=== PATIENT | female | born 1950 | race Caucasian/White ===

== ENCOUNTER 2020-05-21 15:36 | Outpatient (CLI) | payer MEDICARE, OTHER, SELFPAY ==
--- NOTE | ~2020-05-21 | XR_ITS ---
EXAMINATION: XR foot LT 2V DATE: 05/21/2020 16:34 INDICATION: Left foot pain. TECHNIQUE: 2 views of left foot were obtained. COMPARISON: None. FINDINGS: Bone alignment is normal. No fracture. There is mild to moderate osteoarthritis of most of the interphalangeal joints. There is mild osteoarthritis of many of the midfoot joints. There are ent hesophytes at the posterior and plantar aspects of calcaneal tuberosity. IMPRESSION: 1. Polyarticular osteoarthritis. Reviewed, dictated and finalized at location A.
--- NOTE | ~2020-05-21 | XR_ITS ---
EXAMINATION: XR foot RT 2V DATE: 05/21/2020 16:34 INDICATION: Right foot pain. TECHNIQUE: 2 views of right foot were obtained. COMPARISON: None. FINDINGS: Bone alignment is normal. No fracture. There is mild osteoarthritis of first metatarsophala ngeal joint and many of the interphalangeal joints and midfoot joints. There are enthesophytes at the posterior and plantar aspects of calcaneal tuberosity. IMPRESSION: 1. Mild polyarticular osteoarthritis. Reviewed, dictated and finalized at location A.
--- NOTE | ~2020-05-21 | XR_ITS ---
XR clavicle LT DATE: 05/21/2020 16:34 INDICATION: Shoulder lump medially TECHNIQUE: AP and angled upright AP views COMPARISON: None FINDINGS: No fracture or dislocation of the left clavicle. Normal alignment at the sternoclavicular, acromioclavicular and glenohumeral joints Moderate osteopenia. IMPRESSION: No significant abnormality of the left clavicle Reviewed, dictated and finalized at location A.
[2020-05-21 16:07] LABS: Hematocrit 42.3 % (37.0-47.0); Hemoglobin 14.4 g/dL (12.0-15.0); Mean Corpuscular Hemoglobin 30.6 pg (26-34); Mean Corpuscular Volume 89.8 fl (80-100); Mean Platelet Volume 9.4 fl (7.4-10.4); Platelet Count Result 228 k/mm3 (150-375); Red Blood Count 4.71 M/mm3 (4.2-5.4); Red Cell Distribution Width 12.6 % (11.5-14.5)
[2020-05-21 16:11] LABS: Add Urine Microscopic? YES; Appearance Urine Clear (Clear); Bilirubin Urine Negative (Negative); Blood Urine 3+ (Negative); Color Urine Yellow (Yellow); Glucose Urine UA Negative (Negative); Ketones Urine Trace mg/dL (Negative); Leukocyte Esterase Ur Trace LEU/UL (NEGATIVE); Mucus Urine Rare /lpf; Nitrate Urine Negative (Negative); Protein Urine 1+ mg/dL (Negative); Squamous Epithelial Cell Urine Rare /hpf (Few); WBC Urine 0-3 /hpf (0-3)
[2020-05-21 16:16] LABS: Alanine Aminotransferase 22 U/L (4-35); Albumin Level 4.5 g/dL (3.5-5.1); Alkaline Phosphatase 95 U/L (38-126); Aspartate Amino Transferase 31 U/L (14-36); Bilirubin,Total 0.7 mg/dL (0.2-1.3); Blood Urea Nitrogen 23 mg/dL (7-17); Calcium 9.5 mg/dL (8.4-10.2); Carbon Dioxide 27 mmol/L (22-30); Chloride 104 mmol/L (98-107); Cholesterol 223 mg/dL (0-200); Estimated Glomerular Filt Rate > 60; Glucose 109 mg/dL (65-105); HDL Direct 60 mg/dL; Potassium 3.7 mmol/L (3.4-5.0); Sodium 139 mmol/L (137-145); Triglycerides 136 mg/dL (<150)
[2020-05-21 16:19] LABS: Specific Grav Ur 1.032 (1.001-1.035)
[2020-05-21 16:27] LABS: LDL Cholesterol Direct 134 mg/dL
[2020-05-21 16:54] LABS: Erythrocyte Sedimentation Rate 18 mm/hr (0-20)
== END 2020-05-21 15:37 | disposition home or self-care (01) ==
PROVIDERS: PCP Family Medicine; Visit Provider Family Medicine
DX: M89.319 Hypertrophy of bone, unspecified shoulder (principal); E03.9 Hypothyroidism, unspecified; M79.673 Pain in unspecified foot; R53.83 Other fatigue; Z80.7 Family history of other malignant neoplasms of lymphoid, hematopoietic and related tissues
CPT/HCPCS: 36415; 73000; 73620; 80053; 80061; 81001; 84443; 85027; 85652

== ENCOUNTER 2020-06-19 09:49 | Outpatient (CLI) | payer MEDICARE, OTHER, SELFPAY ==
--- NOTE | ~2020-06-19 | MM_ITS ---
EXAMINATION: MM screening jeny BI w niharika HISTORY: Screening TECHNIQUE: Craniocaudal and mediolateral oblique 3-D tomosynthesis images were obtained and synthetic 2-D images were generated. CAD analysis was submitted and interpreted. COMPARISON: 05/02/2018 BREAST PARENCHYMAL COMPOSITION: There are scattered areas of fibroglandular density. FINDINGS: There is no evidence of suspicious mass, calcification, or architectural distortion to sugg est malignancy in either breast. There has been no suspicious interval change. IMPRESSION: 1. No mammographic evidence of malignancy. 2. Recommend routine screening mammography in one year. BI-RADS Category 1: Negative Reviewed, dictated and finalized at location A.
== END 2020-06-19 09:50 | disposition home or self-care (01) ==
PROVIDERS: PCP Family Medicine; Visit Provider Family Medicine
DX: Z12.31 Encounter for screening mammogram for malignant neoplasm of breast (principal)
CPT/HCPCS: 77063; 77067

== ENCOUNTER → 2020-08-01 10:58 | Outpatient (CLI) | payer MEDICARE, OTHER, SELFPAY ==
--- NOTE | ~2020-08-01 | CT_ITS ---
EXAMINATION: CT abdomen pelvis wo/w con EXAM DATE: 08/01/2020 11:47 INDICATION: Microscopic hematuria. Right lower quadrant pain. TECHNIQUE: Spiral CT of the abdomen and pelvis was performed without contrast. The patient was then injected with small bolus intravenous Omnipaque 350, followed by delay of approximately 10 minutes to allow collecting system to opacify. A post contrast scan abdomen and pelvis was performed during inj ection of remaining contrast. A total of 130 cc intravenous contrast was administered. The dose-madeleine th product (DLP) for this examination was 1525.04 mGy-cm. The exposure was tailored according to pat ient size (auto mA exposure control), and iterative reconstruction (ASIR) was used as additional dose reduction technique. There is no prior study for comparison. FINDINGS: There is no hydronephrosis or nephrolithiasis. The kidneys enhance symmetrically. There are no suspicious renal lesions. The calyces and opacified portions of ureters are unremarkable, wi thout filling defects or focal suspicious strictures. The bladder is unremarkable. The uterus is no t identified and has likely been surgically resected. The liver, spleen, adrenal glands and pancreas are unremarkable. There are gallstones within an othe rwise unremarkable gallbladder. No evidence of obstructive biliary disease. There is no retroperito jensen or pelvic lymphadenopathy. There is mild scattered arteriosclerotic disease. The appendix is not positively visualized. There is no pericecal inflammatory change to suggest appe ndicitis. The stomach and small bowel are unremarkable. There is expected amount of colonic stool. No free intraperitoneal gas. There is cardiomegaly. The lung bases are unremarkable. There are no osteoblastic or osteolytic lesions identified. IMPRESSION: 1. No suspicious genitourinary findings. 2. Cardiomegaly. 3. Cholelithiasis. Reviewed, dictated and finalized at location B.
[2020-08-01 11:21] LABS: Estimated Glomerular Filt Rate > 60
== END ==
PROVIDERS: Visit Provider Urology
DX: R31.1 Benign essential microscopic hematuria (principal); I51.7 Cardiomegaly; K80.20 Calculus of gallbladder without cholecystitis without obstruction
CPT/HCPCS: 74178; Q9967

== ENCOUNTER 2020-09-03 18:33 | Inpatient (IN) | payer MEDICARE, OTHER, SELFPAY ==
[2020-09-03] VITALS (13 sets, daily range): BP systolic 97–143; BP diastolic 75–94; PULSE 76–154; RESP 16–31; TEMP 36.2–36.6; O2SAT 89–97
--- NOTE | ~2020-09-03 | US_ITS ---
EXAMINATION: US venous doppler [facility] DATE: 09/04/2020 13:31 INDICATION: Acute pulmonary embolism. TECHNIQUE: Grayscale ultrasound images without and with compression and Doppler ultrasound images of the bilateral lower extremity veins were obtained. COMPARISON: None. FINDINGS: The visualized portions of right common femoral vein, profunda (deep) femoral vein, femoral vein, pop liteal vein, posterior tibial veins, peroneal veins, gastrocnemius vein and greater saphenous vein ou tflow are patent. The visualized portions of left common femoral vein, profunda femoral vein, femoral vein, popliteal v ein, posterior tibial veins, peroneal veins, gastrocnemius vein and greater saphenous vein outflow ar e patent. IMPRESSION: 1. No deep venous thrombosis in either lower limb. Reviewed, dictated and finalized at location B.
--- NOTE | ~2020-09-03 | XR_ITS ---
EXAMINATION: XR chest 1V portable INDICATION: Congestive heart failure TECHNIQUE: Portable AP chest at 0533 hours COMPARISON: 09/03/2020 FINDINGS: There is stable cardiomegaly. A moderate size right pleural effusion is unchanged. There is no pneumothorax. There are airspace opacities of the right lung base. Calcified right hilar lymph no elda are consistent with old granulomatous disease. IMPRESSION: 1. Stable cardiomegaly. 2. Moderate size right pleural effusion, unchanged. 3. Right basilar airspace opacities, consistent with atelectasis versus pneumonia versus pulmonary in farct due to known pulmonary embolism. Reviewed, dictated and finalized at location A. IMPRESSION: 1. Stable cardiomegaly. 2. Moderate size right pleural effusion, unchanged. 3. Right basilar airspace opacities, consistent with atelectasis versus pneumon ia versus pulmonary infarct due to known pulmonary embolism.
--- NOTE | ~2020-09-03 | XR_ITS ---
XR chest 2V 09/03/2020 19:08 Indication: Shortness of breath Procedure: 2 view chest Comparison: No prior studies for comparison. Findings: There is airspace disease of the right lower lung zone. Small right pleural effusion. Cardi omegaly. No pneumothorax. No acute osseous abnormality. Impression: 1: Airspace consolidation of the right lower lung zone, compatible with pneumonia. 2: Small right pleural effusion. Reviewed, dictated and finalized at location A. Impression: 1: Airspace consolidation of the right lower lung zone, compatible with pneumon ia. 2: Small right pleural effusion.
--- NOTE | ~2020-09-03 | CT_ITS ---
EXAMINATION: CTA chest PE protocol DATE: 09/04/2020 11:54 INDICATION: Shortness of breath. TECHNIQUE: Computed tomography angiography (CTA) of the chest was performed with 100 mL Omnipaque-350 intravenous contrast timed to evaluate the pulmonary arteries. Coronal maximum intensity projection 3D-reconstructions were created by the technologist. Automated exposure control and iterative reconst ruction technique were employed. The dose-length product was 283.08 mGy-cm. COMPARISON: CT abdomen and pelvis 08/01/2020 FINDINGS: There are moderate-sized right and trace left pleural effusions. Calcified right lung nodul es and calcified right hilar lymph nodes are consistent with old granulomatous disease. There is mild scarring at the lung apices. There are peripheral airspace opacities in lateral segment right middle lobe. There is passive atelectasis in right lower lobe. There is mild atelectasis in left lung. Ther e are peripheral airspace opacities in anteromedial basal segment left lower lobe. There is an 11 mm nodule in left thyroid lobe, likely not clinically significant. Cardiomegaly is noted. No pericardial effusion. There are acute pulmonary emboli in all lobes bilaterally. There is severe thoracic spondy losis. IMPRESSION: 1. Acute pulmonary emboli in all lobes. I called this result to Dr. Anderson on 09/04/20 at 12:03 PM. 2. Peripheral airspace opacities in lateral segment right middle lobe and anterobasal segment left lo wer lobe, consistent with infarct. 3. Moderate-sized right pleural effusion. 4. Cardiomegaly, stable from 08/01/2020. Reviewed, dictated and finalized at location A. IMPRESSION: 1. Acute pulmonary emboli in all lobes. I called this result to Dr. Anderson on at 12:03 PM. 2. Peripheral airspace opacities in lateral segment right middle lobe and anter obasal segment left lower lobe, consistent with infarct. 3. Moderate-sized right pleural effusion. 4. Cardiomegaly, stable from 08/01/2020.
--- NOTE | 2020-09-03 18:45 | ECG_ITS ---
Measurements Intervals [place] Rate: 146 P: [place]: 0 QRS: -13 QRSD: 86 T: 72 QT: 294 QTc: 459 Interpretive Statements ATRIAL FIBRILLATION WITH RAPID VENTRICULAR RESPONSE VENTRICULAR PREMATURE COMPLEXES NONSPECIFIC ST & T-WAVE ABNORMALITY- HIGH LATERAL LEADS ABNORMAL ECG Electronically Signed On 09-03-2020 19:14:46 CDT by Michael Storm D.O.
[2020-09-03 19:08] LABS: Basophils Percent Auto 0.3 % (0.2-1.2); Eosinophils Percent Auto 0.4 % (0-4.4); Hematocrit 42.1 % (37.0-47.0); Hemoglobin 14.3 g/dL (12.0-15.0); Immature Granulocyte Absolute 0.03 K/mm3 (0.00-0.031); Immature Granulocyte Percent A 0.3 % (0-0.5); Lymphocytes Absolute Auto 1.79 K/mm3 (0.9-3.2); Lymphocytes Percent Auto 16.7 % (18.3-44.2); Mean Corpuscular Hemoglobin 30.4 pg (26-34); Mean Corpuscular Volume 89.4 fl (80-100); Mean Platelet Volume 9.1 fl (7.4-10.4); Monocytes Absolute Auto 0.6 K/mm3 (0.1-0.6); Monocytes Percent Auto 5.8 % (2.6-8.5); Neutrophils Absolute Auto 8.2 K/mm3 (1.3-6.7); Neutrophils Percent Auto 76.5 % (45.5-73.1); Platelet Count Result 300 k/mm3 (150-375); Red Blood Count 4.71 M/mm3 (4.2-5.4); Red Cell Distribution Width 12.5 % (11.5-14.5); White Blood Count 10.7 K/mm3 (4.5-10.0)
[2020-09-03 19:19] LABS: Anion Gap 11 mmol/L (8-16); Blood Urea Nitrogen 23 mg/dL (7-17); Calcium 9.3 mg/dL (8.4-10.2); Carbon Dioxide 28 mmol/L (22-30); Chloride 97 mmol/L (98-107); Estimated CRCL calculation 51 ml/min; Estimated Glomerular Filt Rate > 60; Glucose 119 mg/dL (65-105); Sodium 136 mmol/L (137-145)
--- NOTE | 2020-09-03 19:28 | PC.NURSE ---
called lab to add on Trop I Baseline and BNP
[2020-09-03] MEDS: SODIUM CHLORIDE 0.9% IV 1,000 ML 999 ML (19:39)
--- NOTE | 2020-09-03 19:50 | PC.NURSE ---
Late entry on 09/03/2020 at 1939 1L NS hung and infusing wide open patently to gravity to right a/c #20 G IV per [facility] from EDP; Dr. OREILLY. Hospitalist Dr. Trae MCCAULEY at bedside assessing pt at this time as well. Preparing to give ordered 20 mg Cardizem IVP as previously ordered by EDP at this time. Hospitalist at bedside states that pt's b/p is too low to give this med. Pt's B/P at this time reads 91/80 at this time. This nurse does not believe that this is a real B/P. This nurse readjusts pt's B/P cuff and recycles the B/P. Pt's B/P is now 113/87 at 1942. Pt currently refusing Cardizem as well, stating that she doesn't want her B/P to drop. Cardiem held at this time. EDP aware. Hospitalist remains at bedside talking with pt and her family member at bedside.
[2020-09-03] MEDS: dilTIAZem HCl INJ 25 MG/5 ML VIAL 20 MG IV PUSH (19:58)
[2020-09-03 20:04] LABS: NT Pro B Type Natriuretic Pept 3650 PG/ML (5-100); Troponin I < 0.012 ng/mL (0.000-0.034)
--- NOTE | 2020-09-03 20:14 | ED.GENADULT ---
HPI - General Adult General Chief complaint: Shortness of Breath/Dyspnea Stated complaint: SOB Time Seen by Provider: 09/03/20 18:45 Source: patient and family Mode of arrival: ambulatory Limitations: no limitations History of Present Illness HPI narrative: 70-year-old with no major medical problems here with complaints of shortness of breath on and off for past few months. She also states that she has been closely monitoring her pulse ox for past few months at times she states that her oxygen levels drop to low 80s. She also states that her heart rate has been for quite fluctuant since last few months. Patient also states she had numerous times Covid testing done in the last few months and all turned out to be negative. She also states that she had recent Covid test which was negative prior to her cataract surgery. She denies any fever or chills. She denies any unusual cough. No history of nausea or vomiting. Onset (ago): month(s) (3) Radiation: non-radiation Severity: moderate Exacerbating factors: none Associated symptoms: denies other symptoms Related Data Home Medications Medication Instructions Recorded Confirmed No Home Medications 09/03/20 09/03/20 Allergies Allergy/AdvReac Type Severity Reaction Status Date / Time No Known Allergies Allergy Mild Verified 09/03/20 18:48 Review of Systems Review of Systems: All systems reviewed & are unremarkable except as noted in HPI and below Constitutional: Constitutional: Reports no additional constitutional complaints Eyes: Eyes: Reports as per HPI ENT: Reports system reviewed and no additional complaints, except as documented Cardiovascular: Cardiovascular: Reports no additional cardiovascular complaints Respiratory: Respiratory: Reports no additional respiratory complaints Gastrointestinal: Gastrointestinal: Reports no additional gastrointestinal complaints Musculoskeletal: Musculoskeletal: Reports no additional musculoskeletal complaints [facility] Family History Family History Mother Diabetes mellitus Carcinoma of colon Family history of malignant neoplasm of uterus Sibling Diabetes mellitus Father Family history of malignant neoplasm Grandparent Family history of malignant neoplasm Other Family history of thyroid disease Hypertension Social History Social History Smoking status: Never smoker Second hand tobacco smoke exposure: Yes Alcohol intake: current Exam Narrative: Exam Narrative: GENERAL: Well-appearing, well-nourished, and in no acute distress. HEAD: Normocephalic, atraumatic. EYES: PERRLA and EOMI. ENT: Nares clear, no rhinorrhea or epistaxis. Mucous membranes moist. NECK: Supple. CHEST: Clear to auscultation. No respiratory distress. HEART: Irregularly irregular and tachycardic ABDOMEN: Soft, nontender, nondistended, normal active bowel sounds. EXTREMITIES: Normal range of motion. No edema. SKIN: Warm, dry, no rash. NEURO: No focal deficits. Alert and oriented x3. PSYCH: Normal mood and affect. Course Course Emergency Course: Inform patient about her lab work EKG and chest x-ray findings we will admit her to the hospital meanwhile control her heart rate with Cardizem. Also will start on IV antibiotic for pneumonia. I discussed with Dr. Kay agreed to admit the patient. Vital Signs Vital signs: Vital Signs Temperature 36.2 C L 09/03/20 18:45 Pulse Rate 76 09/03/20 18:45 Respiratory Rate 20 09/03/20 18:45 Blood Pressure 143/94 H 09/03/20 18:45 Pulse Oximetry 94 09/03/20 18:45 Temperature 36.2 C L 09/03/20 18:45 Pulse Rate 102 H 09/03/20 20:36 Respiratory Rate 22 H 09/03/20 20:15 Blood Pressure 121/94 H 09/03/20 20:36 Pulse Oximetry 96 09/03/20 20:15 Medical Decision Making Vital Signs Vital Signs: Vital Signs Temperature 36.2 C L 09/03/20 18:45 Pulse Rate 76
--- NOTE | 2020-09-03 20:40 | PM.IMHP ---
H&P: HPI History of Present Illness Date/Time: 09/03/20 20:40 Chief complaint: Pneumonia, New Onset AFIB Narrative: This is a pleasant 70-year-old female who states she has no significant past medical history although she has had intermittent shortness of breath for the past few months. According to the patient she has had worsening shortness of breath over the past week. She is known to have a chronic dry cough which has not changed for over a year according to her. The patient denies any fever, chills, nausea, vomiting, chest pain, dysuria, hematuria, diarrhea, or rectal bleeding. She decided to come to the hospital [facility] as she found that her oxygen sats were dropping down to the 80s and she felt palpitations. The patient relates that she has been monitoring her pulse ox for the past few months secondary to her intermittent shortness of breath. On arrival to the emergency room the patient was found to be in rapid atrial fibrillation which is new to her. She also was found to have a right lower lobe pneumonia and small pleural effusionon chest x-ray. The patient was treated with IV Cardizem in the ER [facility]. I discussed with the patient anticoagulation and she verbalized to me that she would like to think about it before proceeding forward. She has no other complaints at this time. Review of Systems Review of Systems: All systems reviewed & are unremarkable except as noted in HPI and below PMFSH Surgical History Surgical History History of cataract surgery Family History Family History Mother Ovarian cancer Diabetes mellitus Family history of malignant neoplasm of uterus Carcinoma of colon Sibling Diabetes mellitus Father Family history of malignant neoplasm Family history of thyroid disease Grandparent Family history of malignant neoplasm Multiple myeloma Grandparent Multiple myeloma Other Hypertension Social History Social History Smoking status: Never smoker Second hand tobacco smoke exposure: Yes Alcohol intake: former Drinks per week: 1 Substance use: never Spiritual care concerns: No Comments Past Medical History - patient denies any past medical conditions. Meds Home Medications and Allergies Home Medications Medication Instructions Recorded Confirmed Type No Home Medications 09/03/20 09/03/20 History Allergies Allergy/AdvReac Type Severity Reaction Status Date / Time No Known Allergies Allergy Mild Verified 09/03/20 18:48 Vital Signs Vital Signs - 24 hr 09/03/20 18:45 09/03/20 18:58 09/03/20 19:18 Temperature 36.2 C L Pulse Rate 76 154 H 153 H Respiratory Rate 20 25 H 28 H Blood Pressure 143/94 H 115/80 Pulse Oximetry 94 89 L 96 09/03/20 19:42 09/03/20 19:45 09/03/20 20:00 Temperature Pulse Rate 150 H 146 H 145 H Respiratory Rate 29 H 31 H 23 H Blood Pressure 113/87 117/83 97/75 L Pulse Oximetry 95 94 97 09/03/20 20:15 09/03/20 20:36 Temperature Pulse Rate 95 102 H Respiratory Rate 22 H Blood Pressure 113/76 121/94 H Pulse Oximetry 96 Exam Const: General: cooperative, alert and awake Nutritional Appearance: well nourished Orientation/consciousness: patient oriented x3 HENMT: Head: normal to inspection General nose exam: Normal external nose present Face and sinus: normal facial exam Mouth: Yes Normal oral and palatal mucosa present and Yes oropharynx normal Eyes: Pupils: Equal, round and reactive pupils present EOM: EOMs intact bilaterally Neck: Neck: supple and no JVD Thyroid: thyroid normal Lymphatic: lymphadenopathy not noted Resp: Effort & Inspection: tachypneic Auscultation: rales ( right lower lung) on the right Cardio: Rate: tachycardic Rhythm: abnormal rhythm irregularly irregular Heart sounds: no murmurs GI: Inspection: normal to
[2020-09-03] MEDS: ENOXAPARIN 80 MG/0.8 ML SYRINGE 75 MG SUB-Q (21:02)
--- NOTE | 2020-09-03 22:03 | PC.NURSE ---
This patient, Tana Fisher, was admitted to IMU Room 212-01. Patient/family oriented to hospital policies and general routines including ID bracelet, bed and alarms, visiting hours, pain management, procedures, bathroom and other care routines, personal items, smoking policy, room service/diet, and visiting hours. Information on how to activate the Rapid Response Team has been discussed. Patient/Family are encouraged to report perceived risks to care and to ask questions if they do not understand what they are told or what they should do.
[2020-09-03 22:37] LABS: Troponin I < 0.012 ng/mL (0.000-0.034)
[2020-09-04] VITALS (28 sets, daily range): BP systolic 81–114; BP diastolic 60–96; PULSE 60–123; RESP 16–24; TEMP 36.1–36.8; O2SAT 90–95
--- NOTE | 2020-09-04 | ECHO_ITS ---
Patient Info Name: Tana Fisher Age: 70 years : 1950 Gender: Female Ht: 67 in Wt: 160 lbs BSA: 1.86 m2 HR: 94 bpm BP: 108 / 64 mmHg Technical Quality: Good Exam Date: 09/04/2020 8:54 AM Exam Location: [facility] Patient Status: Inpatient Admit Date: 09/03/2020 Staff Ordering Physician: Gil Salinas MD Claims Processor: Frederick Ray RDCS, RT Attending Provider: Jaylen Anderson MD Exam Type: CA echo doppler color flow Study Info Indications I48.1 - Persistent atrial fibrillation Complete two-dimensional, color flow and Doppler transthoracic echocardiogram is performed. Strain analysis performed. Summary 1. Complete two-dimensional, color flow and Doppler transthoracic echocardiogram is performed. 2. Right ventricular chamber dimension is moderately enlarged. 3. Right ventricular systolic function is moderately reduced. 4. Left ventricular systolic function is low normal to mildly reduced, estimated EF 45%. 5. D shaped septum noted with septal bounce motion consistent with right ventricular volume or pressure overload. 6. Left atrial chamber dimension is moderately enlarged. 7. Right atrial chamber dimension is moderately to severely enlarged. 8. No evidence of shunt using agitated saline (negative bubble study). 9. Mitral valve prolapse noted (anterior and posterior leaflets) with mild mitral regurgitation. 10. There is mild to moderate tricuspid valve regurgitation. 11. Moderate pulmonary hypertension, estimated pulmonary arterial systolic pressure is 50 mmHg. 12. Dilated inferior vena cava with <50% collapse upon inspiration consistent with elevated right atrial pressure. 13. There is trivial pericardial effusion. Left Ventricle Left ventricular chamber dimension is top normal. Left ventricular systolic function is low normal to mildly reduced, estimated EF 45%. There is no increased left ventricular wall thickness. D shaped septum noted with septal bounce motion consistent with right ventricular volume or pressure overload. The left ventricular diastolic function is indeterminate due to underlying Atrial fibrillation. . Longitudinal strain of the left ventricle is mildly decreased, -13.0 %. Right Ventricle Right ventricular chamber dimension is moderately enlarged. Right ventricular systolic function is moderately reduced. Left Atria Left atrial chamber dimension is moderately enlarged. Right Atria Right atrial chamber dimension is moderately to severely enlarged. Atrial Septum No evidence of shunt using agitated saline (negative bubble study). Aortic Valve The aortic valve is trileaflet. There is no aortic valve sclerosis. There is no aortic valve stenosis. There is no aortic valve regurgitation. Pulmonic Valve The pulmonic valve is normal. There is no pulmonic valve stenosis. There is no pulmonic regurgitation. Mitral Valve Mitral valve prolapse noted (anterior and posterior leaflets) with mild mitral regurgitation. Tricuspid Valve The tricuspid valve leaflets are normal. There is mild to moderate tricuspid valve regurgitation. Moderate pulmonary hypertension, estimated pulmonary arterial systolic pressure is 50 mmHg. Pericardium/Pleural The pericardium appears normal. There is trivial pericardial effusion. Inferior Vena Cava Dilated inferior vena cava with <50% collapse upon inspiration consistent with elevated right atrial pressure. Aorta The aortic root size at the sinus of Valsalva is normal.
[2020-09-04 02:51] LABS: Basophils Percent Auto 0.4 % (0.2-1.2); Eosinophils Absolute Auto 0.1 K/mm3 (0-0.3); Eosinophils Percent Auto 0.8 % (0-4.4); Hematocrit 38.7 % (37.0-47.0); Hemoglobin 12.5 g/dL (12.0-15.0); Immature Granulocyte Absolute 0.01 K/mm3 (0.00-0.031); Immature Granulocyte Percent A 0.1 % (0-0.5); Lymphocytes Absolute Auto 2.21 K/mm3 (0.9-3.2); Lymphocytes Percent Auto 30.7 % (18.3-44.2); Mean Corpuscular HGB Conc 32.3 g/dl (32-36); Mean Corpuscular Hemoglobin 29.8 pg (26-34); Mean Corpuscular Volume 92.4 fl (80-100); Mean Platelet Volume 8.8 fl (7.4-10.4); Monocytes Absolute Auto 0.5 K/mm3 (0.1-0.6); Monocytes Percent Auto 6.4 % (2.6-8.5); Neutrophils Absolute Auto 4.4 K/mm3 (1.3-6.7); Neutrophils Percent Auto 61.6 % (45.5-73.1); Platelet Count Result 253 k/mm3 (150-375); Red Blood Count 4.19 M/mm3 (4.2-5.4); Red Cell Distribution Width 12.8 % (11.5-14.5); White Blood Count 7.2 K/mm3 (4.5-10.0)
[2020-09-04 03:02] LABS: Anion Gap 6 mmol/L (8-16); Blood Urea Nitrogen 17 mg/dL (7-17); Calcium 8.8 mg/dL (8.4-10.2); Carbon Dioxide 31 mmol/L (22-30); Chloride 101 mmol/L (98-107); Estimated CRCL calculation 64 ml/min; Estimated Glomerular Filt Rate > 60; Glucose 88 mg/dL (65-105); Potassium 3.8 mmol/L (3.4-5.0); Sodium 138 mmol/L (137-145)
[2020-09-04 03:14] LABS: Troponin I < 0.012 ng/mL (0.000-0.034)
--- NOTE | 2020-09-04 09:18 | PM.IMPN ---
Progress Note: A&P Assessment and Plan (1) Atrial fibrillation with rapid ventricular response: Code(s): I48.91 - Unspecified atrial fibrillation Status: Acute Assessment and Plan: Patient most likely with new atrial fibrillation that suspect started in June. It could be related to underlying pneumonia but suspect chest x-rays findings more likely related to CHF from tachycardia. BNP 3650. She was noted to have cardiomegaly by CT scan month ago also probably related to the uncontrolled atrial fibrillation. TSH is normal. Echocardiogram has been ordered. Heart rate better controlled with the diltiazem. She is on Lovenox for stroke prophylaxis. Cardiology been consulted. Lasix x1. Stop IV fluids. She is undecided about anticoagulation. This was discussed in detail in regards to risks and benefits. All questions answered. (2) Pneumonia: Qualifiers: Laterality: right Lung location: lower lobe of lung Pneumonia type: due to unspecified organism Qualified Code(s): J18.9 - Pneumonia, unspecified organism Code(s): J18.9 - Pneumonia, unspecified organism Status: Acute Assessment and Plan: CXR showing RLL airspace disease. She has a cough but no fever. Given this presentation, suspect she has CHF from AFib/RVR and may have tachycardia induced CMP. Contineu abx but will stop IV fluids and start Lasix. Follow up on blood and sputum cultures, and pneumococcal and Legionella antigens. Influenza pending (3) Pulmonary embolism: Code(s): I26.99 - Other pulmonary embolism without acute cor pulmonale Status: Acute Assessment and Plan: Late entry: Echo returned showing RV enlarged with reduced function. EF 45%. Moderate pulmonary HTN. Called by radiology for CT result which showed acute pulmonary emboli in all lobes with peripheral airspace opacities in lateral segment right middle lobe and anterobasal segment left lower lobe, consistent with infarct. She also has a moderate-sized right pleural effusion. Discussed with Cardilogy. She was changed to Elquis so will advance dose. Catheter based therapy being considered givenher right sided symptoms Subjective Date/time seen: 09/04/20 09:18 Interval history: Date of service 09/04 70yo healthy female here for SOB and found to have PNA and new AFib on clear duration. Patient has had symptoms the past few months. Patient denies any significant chest pain during this time period. She is having shortness of breath that has progressively worsened. She has a home pulse ox and has noted that her heart rate has been elevated since June. She has also noted that her blood pressure has been more elevated recently to as high as 140/90. She has noted shortness of breath that has worsened over the past few weeks. She has a cough that is nonproductive. No fevers or chills. She had cataract surgery in June with the 2nd eye done in July. She was tested for COVID prior to both of those procedures and was negative. She denies any headaches, anosmia or dysgeusia. She was also being worked up for hematuria with a CT scan of the abdomen 08/01 showing CMG and cholelithiasis (lung bases clear). Cystoscopy which was performed 2 days ago was negative per patient. 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 Exam Narrative: Exam Narrative: AF 98.2 108/78 100 16 93% 2L Gen - NARD lying semi-recumbent in bed Chest - bibasilar inspiratory crackles, nml RR but mild tachypnea. CV - irregularyl irregular; Tele showing AFib with RVR Abd - Soft, NT/ND, Positive BS Ext - No pitting pedal edema Neuro - Alert and appropriate; nml speech Psych - Nml mood and affect Skin - Warm and dry Objective Data Vital Signs Vital Signs: Vital Signs - 24 hr 09/03/20 18:45 09/03/20 18:58 09/03/20 19:18 Temperature 97.2 F L Pulse Rate 76 154 H 153 H Respiratory Rate 20 25 H 28 H Blood Pressure 143/94 H 115/80 Pulse
[2020-09-04] MEDS: SODIUM CHLORIDE 0.9% IV 1,000 ML 75 ML IV CONT (09:22)
[2020-09-04] MEDS: ENOXAPARIN 80 MG/0.8 ML SYRINGE 75 MG SUB-Q (09:25)
--- NOTE | 2020-09-04 09:58 | PM.CNCAR ---
Assessment and Plan Assessment and plan (1) Cardiomyopathy: Code(s): I42.9 - Cardiomyopathy, unspecified Status: Acute Assessment and Plan: 70 y/o with no significant history with viral illness in April and gradual worsening of dyspnea/orthopnea since now found to have new diagnosis of cardiomyopathy and new onset A fib with RVR She has new discovery of cardiomyopathy with biventricular failure (filling pressure, chamber volumes are Worse on the right). Biatrial enlargement (R>L) and moderate pulmonary HTN Unclear etiology. DDx including viral myocarditis (possible started around April) Vs pulmonary HTN (due to PE or underlying lung disease) with Right heart failure and subsequent left heart failure Vs Tachycardia induced cardiomyopathy Vs less likely ischemic cardiomyopathy (no CAD risk factors, most right heart failure) Vs other etiologies For now agree with diuresis. She is naive to lasix . Agree with 20 mg BID Will start Metoprolol 25 mg BID for rate control of A fib and for cardiomyopathy. Wean off cardizem drip Start Lisinopril 5 mg daily As for right heart failure work up, she had bubble study with no evidence of shunt. Will check CT of chest to rule out PE. Will need outpatient sleep study. Consider pulmonary consult for work up of pulmonary HTN (2) Atrial fibrillation with rapid ventricular response: Code(s): I48.91 - Unspecified atrial fibrillation Status: Acute Assessment and Plan: Will wean off cardizem drip Start Metoprolol Agreeable to start Eliquis Depending on work up may consider yazidi of sinus rhythm with LORETA/cardioversion. s (3) Right heart failure: Code(s): I50.810 - Right heart failure, unspecified Status: Acute Assessment and Plan: As above History of Present Illness History of Present Illness Consult date/time: 09/04/20 09:58 70 y/o female with no significant medical history, very active for her age (runs,bikes,etc) who presents with shortness of breath Patient reports feeling well up until April when she developed upper resp symptoms. Since then she has gradual worsening of shortness of breath. Her breathing patricularily got even worse during Aug mostly at night time and she had to sleep using 2-3 pillows. She has also noticed fatigue and has not been able to perform her daily exercise. Since symptoms started she got pulse oximeter and has been doing daily vitals check. Her O2 sat was initially in high 90s and slowly dropped to low 90s . Her baseline HR normally in 50s but it has been higher and intermittently as high as 130s . She denies chest pain. She admits to 10 pounds weight gain since symptoms started and she noticed mild lower ext edema. She eventually decided to present to the hospital as her O2 sat dropped to 80s. in ER she was noted to be in A fib with RVR with HR in 140s. She was started on Cardizem drip and HR now ~ 100s. Chest X ray showed right infiltrate with small effusion. EKG on admission showed A fib with HR 145. NT Pro BNP is elevated at 3600. Trop negative X3. 2D echo showed Biventricular failure (right heart failure/enlargement more prominent than left) with moderate to severe biatrial enlargement. Mild MR. Mild to moderate MR Never smoker. Reason For Visit: Pneumonia, New Onset AFIB Review of Systems Review of Systems: All systems reviewed & are unremarkable except as noted in HPI and below Constitutional: Constitutional: Denies fatigue and Denies headache(s) Eyes: Eyes: Denies blurry vision ENT: Reports Normal hearing present and Denies headache(s) Cardiovascular: Cardiovascular: Denies chest pain, Denies diaphoresis, Denies pedal edema, Denies leg edema, Denies lightheadedness, Denies palpitations and Denies dyspnea Respiratory: Respiratory: Denies cough and Denies dyspnea Gastrointestinal: Gastrointestinal: Denies abdominal pain Musculoskeletal: Musculoskeletal: Denies back pain Neurologic: Rep
[2020-09-04] MEDS: FUROSEMIDE INJ 40 MG/4 ML VIAL 20 MG IV PUSH ×2 (10:18→18:07)
[2020-09-04] MEDS: METOPROLOL TARTRATE 25 MG TABLET PO ×2 (13:18→21:47)
[2020-09-04] MEDS: lisinopriL 5 MG TABLET PO (13:18)
[2020-09-04] MEDS: APIXABAN 5 MG TABLET 10 MG PO (21:47)
--- NOTE | 2020-09-04 23:51 | ECG_ITS ---
Measurements Intervals [place] Rate: 99 P: OK: 0 QRS: 4 QRSD: 95 T: 91 QT: 397 QTc: 512 Interpretive Statements ATRIAL FIBRILLATION VENTRICULAR PREMATURE COMPLEXES DELAYED PRECORDIAL R/S TRANSITION NONSPECIFIC T-WAVE ABNORMALITY- ANTEROLAT/HIGH LAT LEADS BASELINE ARTIFACT- III, V3 Electronically Signed On 09-08-2020 7:11:42 [employer] SAL[employer] ADVIS[employer] by Michael Storm D.O.
[2020-09-05] VITALS (26 sets, daily range): BP systolic 93–121; BP diastolic 64–73; PULSE 81–130; RESP 16–24; TEMP 36.2–37.1; O2SAT 91–97
[2020-09-05] MEDS: SODIUM CHLORIDE 0.9% IV 500 ML (01:18)
--- NOTE | 2020-09-05 01:19 | PC.NURSE ---
at 23:30 patient called out stating that she was feeling nauseated and that her arm was itching at the iv site. she thought she was having a reaction to the antibiotic. I went to look to see if she had anything for nausea. when I came back I stopped the iv. she said that she needed to use the restroom so I helped her to the restroom. she got intermediate there and started to become very weak and was trying to fall. I assisted her to the floor and called for help to get her back to bed. she was pale , clammy, nauseated, but did not vomit. had chest tightness, lightheaded, dizzy. felt like she needed to use the bathroom when she didn't. vitals are charted dr amos is aware, charge nurse christian was there to assist. fluids were ordered.
[2020-09-05 05:09] LABS: Anion Gap 6 mmol/L (8-16); Blood Urea Nitrogen 18 mg/dL (7-17); Calcium 8.7 mg/dL (8.4-10.2); Carbon Dioxide 31 mmol/L (22-30); Chloride 98 mmol/L (98-107); Estimated CRCL calculation 64 ml/min; Estimated Glomerular Filt Rate > 60; Glucose 146 mg/dL (65-105); Potassium 3.8 mmol/L (3.4-5.0); Sodium 135 mmol/L (137-145)
--- NOTE | 2020-09-05 08:40 | PM.PNCARD ---
Progress Note: A&P Assessment and Plan (1) Cardiomyopathy: Code(s): I42.9 - Cardiomyopathy, unspecified Status: Acute Assessment and Plan: 70 y/o with no significant history with viral illness in April and gradual worsening of dyspnea/orthopnea since, found now to have new diagnosis of cardiomyopathy and new onset A fib with RVR She has new discovery of cardiomyopathy with biventricular failure, mostly right heart failure Etiology likely due to pulmonary embolism as noted on CT scan with high clot burden and subsequent hypoxia/pulmonary HTN causing RV strain and RV failure. Started on Eliquis 10 BID. She remains in A fib and HR difficult to control. No BP room for up titration of Metoprolol dose. Will start Digoxin IV load today 250 Mcg now, 125 Mcg tow doses 6 hours apart. then PO tomorrow Will d.c nebs She had near syncopal episode yesterday with low BP. She is naive to lasix and diuresed a lot. Will decrease lasix to 20 mg daily. will also D/C Lisinopril (2) Atrial fibrillation with rapid ventricular response: Code(s): I48.91 - Unspecified atrial fibrillation Status: Acute Assessment and Plan: Add Digoxin as above. If HR remains difficult to control and Bp drop again may consider cardioversion. (3) Right heart failure: Code(s): I50.810 - Right heart failure, unspecified Status: Acute Assessment and Plan: As above Subjective Date/time seen: 09/05/20 08:40 She had near syncopal event around 11:00 pm while assisted by nurse to the bathroom. Her BP was low 81/60. She feels better this morning. HR remains ~ 120. Goes up to 140-150 with minimal exertion like walking to the bathroom Review of Systems Review of Systems: All systems reviewed & are unremarkable except as noted in HPI and below Constitutional: Constitutional: Denies fatigue and Denies headache(s) Eyes: Eyes: Denies blurry vision ENT: Reports Normal hearing present and Denies headache(s) Cardiovascular: Cardiovascular: Denies chest pain, Denies diaphoresis, Denies pedal edema, Denies leg edema, Denies lightheadedness, Denies palpitations and Denies dyspnea Respiratory: Respiratory: Denies cough and Denies dyspnea Gastrointestinal: Gastrointestinal: Denies abdominal pain Musculoskeletal: Musculoskeletal: Denies back pain Neurologic: Reports Normal hearing present and Denies headache(s) Psychiatric: Psychiatric: Denies anxiety Endocrine: Endocrine: Denies fatigue and Denies palpitations Exam Const: General: no acute distress Eyes: Sclera: sclerae normal Neck: Neck: no JVD Carotids: no bruits Resp: Effort & Inspection: normal respiratory effort Auscultation: crackles Other: Bilateral bases of lungs Cardio: Rate: not tachycardic Rhythm: abnormal rhythm Heart sounds: S1 normal heart sound present, S2 normal heart sound present, no gallops, no murmurs and no rubs Skin: General skin exam: normal color Neuro: Cranial nerves: Yes Normal hearing present Speech: normal speech Extrem: General: normal to inspection and no edema Psych: Affect: normal affect Objective Data Vital Signs Vital Signs: Vital Signs - 24 hr 09/04/20 10:00 09/04/20 11:55 09/04/20 12:00 Temperature 36.8 C Pulse Rate 100 60 98 Respiratory Rate 18 Blood Pressure 113/76 Pulse Oximetry 95 09/04/20 13:18 09/04/20 13:57 09/04/20 14:00 Temperature Pulse Rate 98 102 H 123 H Respiratory Rate Blood Pressure Pulse Oximetry 09/04/20 14:04 09/04/20 16:00 09/04/20 18:00 Temperature Pulse Rate 102 H 100 81 Respiratory Rate Blood Pressure Pulse Oximetry 09/04/20 18:13 09/04/20 19:21 09/04/20 20:00 Temperature 36.1 C L 36.8 C Pulse Rate 102 H 115 H 116 H Respiratory Rate 18 16 18 Blood Pressure 105/65 114/96 H Pulse Oximetry 94 94 93 09/04/20 21:12 09/04/20 21:19 09/04/20 21:47 Temperature Pulse Rate 110 H 107 H 121 H Respiratory Rate 18 18
[2020-09-05] MEDS: DIGOXIN INJ 250 MCG/ML 2 ML AMP (*BKC) IV PUSH (09:14)
[2020-09-05] MEDS: APIXABAN 5 MG TABLET 10 MG PO ×2 (09:15→20:31)
[2020-09-05] MEDS: FUROSEMIDE INJ 40 MG/4 ML VIAL 20 MG IV PUSH (09:15)
[2020-09-05] MEDS: METOPROLOL TARTRATE 25 MG TABLET PO ×2 (09:16→20:31)
--- NOTE | 2020-09-05 12:16 | PM.IMPN ---
Progress Note: A&P Assessment and Plan (1) Atrial fibrillation with rapid ventricular response: Code(s): I48.91 - Unspecified atrial fibrillation Status: Acute Assessment and Plan: Patient most likely with new atrial fibrillation that suspect started in June. Related to underlying PE. She also has underlying CHF from the biventricular heart failure. BNP 3650. She was noted to have cardiomegaly by CT scan month ago also probably related to the uncontrolled atrial fibrillation. TSH is normal. Echocardiogram as mentioned below. Heart rate better controlled with metoprolol but not at goal so Digoxin added. She was on Lovenox on admission for the AFib but changed to Eliquis. Cardiology following and appreciate their input. (2) Pulmonary embolism: Code(s): I26.99 - Other pulmonary embolism without acute cor pulmonale Status: Acute Assessment and Plan: Echo showing RV enlarged with reduced function. EF 45%. Moderate pulmonary HTN. CT chest showing acute pulmonary emboli in all lobes with peripheral airspace opacities in lateral segment right middle lobe and anterobasal segment left lower lobe, consistent with infarct. She also has a moderate-sized right pleural effusion. She was on lovenox on admission already but changed to Eliquis last night. Continue the same. Repeat CXR in the morning (3) CHF (congestive heart failure): Code(s): I50.9 - Heart failure, unspecified Status: Acute Assessment and Plan: Echo showing EF 45% probably related to Rt heart failure. Suspect patient with both right and left sided heart failure symptoms. Lasix given with good UOP and symptomatic improvement. Lasix decreased due to HoTN. Monitor. Daily weights. Strict I/Os (4) Right heart failure: Code(s): I50.810 - Right heart failure, unspecified Status: Acute Assessment and Plan: Echo showing RV enlarged with reduced RV function. Related to multilobar PE. SOB better with good diuresis. Lasix dose reduced due to the HoTN. May be pre-load dependent. Monitor closely. (5) Cardiomyopathy: Code(s): I42.9 - Cardiomyopathy, unspecified Status: Acute Assessment and Plan: Echo showing EF 45% probably related to above. Should have ischemic evaluation at some point to exclude occult CAD but felt not needed at this point. (6) Pneumonia: Qualifiers: Laterality: right Lung location: lower lobe of lung Pneumonia type: due to unspecified organism Qualified Code(s): J18.9 - Pneumonia, unspecified organism Code(s): J18.9 - Pneumonia, unspecified organism Status: Acute Assessment and Plan: CXR showing RLL airspace disease. She has a cough but no fever. CT scan showing more of lung infarct then for PNA. Patient was having itching at the IV site so abx stopped. Follow up on pneumococcal and Legionella antigens. BCx NGTD. Subjective Date/time seen: 09/05/20 12:16 Interval history: Date of service 09/05 70yo healthy female here for SOB and found to have new AFib on clear duration and PE. yesterday evening patient became dizzy when she stood up and she had to be lowered to the floor without injury. No recurrence of symptoms. No CP. She is breathing easier today. She has noted that her HR does not climb as high when ambulating to the BR (was up to 160's but now only up 130's). [place] better when walking. Complains of a burning sensation right of midline mid back. Exam Narrative: Exam Narrative: AF 97.2 93/64 93 18 93% 2L Gen - NARD lying semi-recumbent in bed Chest - left base crackles, decreased BS right base. CV - irregularly irregular; Tele showing AFib with RVR at times Abd - Soft, NT/ND, Positive BS Back - no pain to palpation; no overlying skin abnormalities Ext - No pitting pedal edema Psych - Nml mood and affect Skin - Warm and dry Objective Data Vital Signs Vital Signs: Vital Signs - 2
[2020-09-05] MEDS: DIGOXIN INJ 250 MCG/ML 2 ML AMP (*BKC) 125 MCG IV PUSH ×2 (17:05→20:31)
[2020-09-06] VITALS (22 sets, daily range): BP systolic 102–129; BP diastolic 71–87; PULSE 73–114; RESP 16–18; TEMP 36.1–36.7; O2SAT 90–99
[2020-09-06 04:42] LABS: Hematocrit 40.2 % (37.0-47.0); Mean Corpuscular HGB Conc 32.3 g/dl (32-36); Mean Corpuscular Hemoglobin 29.7 pg (26-34); Mean Platelet Volume 8.9 fl (7.4-10.4); Platelet Count Result 284 k/mm3 (150-375); Red Blood Count 4.37 M/mm3 (4.2-5.4); Red Cell Distribution Width 12.8 % (11.5-14.5); White Blood Count 7.1 K/mm3 (4.5-10.0)
[2020-09-06 04:58] LABS: Alanine Aminotransferase 65 U/L (4-35); Albumin Level 3.3 g/dL (3.5-5.1); Alkaline Phosphatase 148 U/L (38-126); Anion Gap 6 mmol/L (8-16); Aspartate Amino Transferase 30 U/L (14-36); Bilirubin,Total 0.6 mg/dL (0.2-1.3); Blood Urea Nitrogen 16 mg/dL (7-17); Calcium 8.9 mg/dL (8.4-10.2); Carbon Dioxide 33 mmol/L (22-30); Chloride 100 mmol/L (98-107); Estimated CRCL calculation 64 ml/min; Estimated Glomerular Filt Rate > 60; Glucose 99 mg/dL (65-105); Magnesium 2.2 mg/dL (1.6-2.3); Phosphorus 4.1 mg/dL (2.5-4.5); Sodium 139 mmol/L (137-145)
--- NOTE | 2020-09-06 06:05 | PM.PNCARD ---
Progress Note: A&P Assessment and Plan (1) Cardiomyopathy: Code(s): I42.9 - Cardiomyopathy, unspecified Status: Acute Assessment and Plan: 70 y/o with no significant history with viral illness in April and gradual worsening of dyspnea/orthopnea since, found now to have new diagnosis of cardiomyopathy and new onset A fib with RVR She has new discovery of cardiomyopathy with biventricular failure, mostly right heart failure Etiology likely due to pulmonary embolism as noted on CT scan with high clot burden and subsequent hypoxia/pulmonary HTN causing RV strain and RV failure. Started on Eliquis 10 BID. She remains in A fib and HR difficult to control. No BP room for up titration of Metoprolol dose. Will start Digoxin IV load today 250 Mcg now, 125 Mcg tow doses 6 hours apart. then PO tomorrow Will d.c nebs She had near syncopal episode yesterday with low BP. She is naive to lasix and diuresed a lot. Will decrease lasix to 20 mg daily. will also D/C Lisinopril (2) Atrial fibrillation with rapid ventricular response: Code(s): I48.91 - Unspecified atrial fibrillation Status: Acute Assessment and Plan: Add Digoxin as above. If HR remains difficult to control and Bp drop again may consider cardioversion. (3) Right heart failure: Code(s): I50.810 - Right heart failure, unspecified Status: Acute Assessment and Plan: As above Subjective Date/time seen: 09/06/20 06:05 she feels well today, still with mild cough, no significant shortness breath no palpitation or dizziness she still in AFib but rate is well controlled Exam Const: General: no acute distress Eyes: Sclera: sclerae normal Neck: Neck: no JVD Carotids: no bruits Resp: Effort & Inspection: normal respiratory effort Auscultation: crackles Other: Bilateral bases of lungs Cardio: Rate: not tachycardic Rhythm: abnormal rhythm Heart sounds: S1 normal heart sound present, S2 normal heart sound present, no gallops, no murmurs and no rubs Skin: General skin exam: normal color Neuro: Cranial nerves: Yes Normal hearing present Speech: normal speech Extrem: General: normal to inspection and no edema Psych: Affect: normal affect Objective Data Vital Signs Vital Signs: Vital Signs - 24 hr 09/05/20 08:00 09/05/20 08:18 09/05/20 08:20 Temperature 36.3 C L Pulse Rate 108 H 121 H 121 H Respiratory Rate 16 20 Blood Pressure 101/70 Pulse Oximetry 93 95 09/05/20 08:28 09/05/20 09:14 09/05/20 09:16 Temperature Pulse Rate 130 H 119 H 120 H Respiratory Rate 20 Blood Pressure Pulse Oximetry 09/05/20 10:00 09/05/20 12:00 09/05/20 14:00 Temperature 36.2 C L Pulse Rate 108 H 98 99 Respiratory Rate 18 Blood Pressure 93/64 L Pulse Oximetry 93 09/05/20 16:00 09/05/20 17:05 09/05/20 18:00 Temperature 36.4 C L Pulse Rate 104 H 126 H 118 H Respiratory Rate 16 Blood Pressure 121/73 Pulse Oximetry 97 09/05/20 19:42 09/05/20 20:00 09/05/20 20:01 Temperature 36.3 C L Pulse Rate 89 85 Respiratory Rate 16 Blood Pressure 105/70 Pulse Oximetry 94 91 09/05/20 20:31 09/05/20 22:00 09/05/20 23:43 Temperature 36.5 C Pulse Rate 93 81 81 Respiratory Rate 16 Blood Pressure 109/67 Pulse Oximetry 95 09/06/20 00:00 09/06/20 02:00 09/06/20 03:48 Temperature 36.2 C L Pulse Rate 73 77 95 Respiratory Rate 18 Blood Pressure 110/73 Pulse Oximetry 93 09/06/20 04:00 09/06/20 06:00 Temperature Pulse Rate 81 99 Respiratory Rate Blood Pressure Pulse Oximetry Intake/Output Intake/Output: Intake & Output 09/03/20 09/04/20 09/05/20 09/06/20 23:59 23:59 23:59 23:59 Intake Total 2952 071 6788 Output Total 1200 3000 Balance 1050 -360 -1200 Meds/Results Medications: Active Medications Generic Name Dose Route Start Last Admin Trade Name Freq PRN Reason Stop Dose Admin Acetaminophen 650 mg 09/03/20 20:2
[2020-09-06 07:27] LABS: Troponin I < 0.012 ng/mL (0.000-0.034)
[2020-09-06] MEDS: FUROSEMIDE INJ 40 MG/4 ML VIAL 20 MG IV PUSH (08:09)
[2020-09-06] MEDS: METOPROLOL TARTRATE 25 MG TABLET PO ×2 (08:09→20:08)
[2020-09-06] MEDS: DIGOXIN TAB 125 MCG TABLET PO (08:10)
[2020-09-06] MEDS: APIXABAN 5 MG TABLET 10 MG PO ×2 (08:10→20:08)
--- NOTE | 2020-09-06 14:36 | PM.IMPN ---
Progress Note: A&P Assessment and Plan (1) Atrial fibrillation with rapid ventricular response: Code(s): I48.91 - Unspecified atrial fibrillation Status: Acute Assessment and Plan: Patient most likely with new atrial fibrillation that probably started in June related to occult PE. She also has underlying CHF from the biventricular heart failure. BNP 3650. She was noted to have cardiomegaly by CT scan 1 month ago also probably related to the uncontrolled atrial fibrillation. TSH is normal. Echocardiogram as mentioned below. Heart rate better controlled with metoprolol and Digoxin. She was on Lovenox on admission for the AFib but changed to Eliquis. Cardiology following and appreciate their input. Increase activity level as tolerated. (2) Pulmonary embolism: Code(s): I26.99 - Other pulmonary embolism without acute cor pulmonale Status: Acute Assessment and Plan: Echo showing RV enlargement with reduced function. EF 45%. Moderate pulmonary HTN. CT chest showing acute pulmonary emboli in all lobes with peripheral airspace opacities in lateral segment right middle lobe and anterobasal segment left lower lobe, consistent with infarct. She also has a moderate-sized right pleural effusion that seems worse by CXR today. She was started on Lovenox on admission and changed to Eliquis now. Continue the same. (3) CHF (congestive heart failure): Code(s): I50.9 - Heart failure, unspecified Status: Acute Assessment and Plan: Patient with both right and left sided heart failure symptoms. Echo showing EF 45% probably related to Rt heart failure and/or tachycardia. RV dysfunction related to PE. Lasix given with good UOP and symptomatic improvement. Lasix decreased due to HoTN. Contineu to monitor. Continue daily weights. Strict I/Os (4) Right heart failure: Code(s): I50.810 - Right heart failure, unspecified Status: Acute Assessment and Plan: Echo showing RV enlarged with reduced RV function. Related to multilobar PE. SOB improved. Remains on low dose IV Lasix with good diuresis. BP stable. Renal function remains normal. Monitor closely. (5) Cardiomyopathy: Code(s): I42.9 - Cardiomyopathy, unspecified Status: Acute Assessment and Plan: Echo showing EF 45%. Related to the PE and possible tachycardia induced CMP. Should have ischemic evaluation at some point to exclude occult CAD but felt not needed at this point. (6) Pneumonia: Qualifiers: Laterality: right Lung location: lower lobe of lung Pneumonia type: due to unspecified organism Qualified Code(s): J18.9 - Pneumonia, unspecified organism Code(s): J18.9 - Pneumonia, unspecified organism Status: Acute Assessment and Plan: CXR showing RLL airspace disease. She has a cough but no fever. CT scan showing more likely lung infarct then for PNA. BCx NGTD. PNEUMONIA RULED OUT. Subjective Date/time seen: 09/06/20 14:36 Interval history: Date of service 09/06 70yo healthy female here for SOB and found to have new AFib of unclear duration and PE. Patient feels better today. Still has elevated heart rate when ambulating. Shortness of breath is better. Still with cough but improved. Eating normally. No further burning in the right mid back. Minimal pleuritic pain. Exam Narrative: Exam Narrative: AF 97.2 109/74 91 16 99% 2L Gen - NARD lying semi-recumbent in bed Chest - Decreased breath sounds in the right lung base. Left base inspiratory crackles. CV - irregularly irregular; Tele showing AFib with RVR at times Abd - Soft, NT/ND, Positive BS Ext - No pitting pedal edema Psych - Nml mood and affect Skin - Warm and dry Objective Data Vital Signs Vital Signs: Vital Signs - 24 hr 09/05/20 16:00 09/05/20 17:05 09/05/20 18:00 Temperature 97.5 F L Pulse Rate 104 H 126 H 118 H Respiratory Rate 16 Blood Pressure 1
[2020-09-06 23:54] LABS: Pneumococcal Antigen Urine Not Detected (Not Detected)
[2020-09-07] VITALS (19 sets, daily range): BP systolic 97–117; BP diastolic 64–84; PULSE 74–110; RESP 16–20; TEMP 35.7–36.6; O2SAT 92–97
[2020-09-07 05:21] LABS: Alanine Aminotransferase 51 U/L (4-35); Albumin Level 3.3 g/dL (3.5-5.1); Alkaline Phosphatase 134 U/L (38-126); Anion Gap 5 mmol/L (8-16); Aspartate Amino Transferase 24 U/L (14-36); Bilirubin,Total 0.6 mg/dL (0.2-1.3); Blood Urea Nitrogen 16 mg/dL (7-17); Calcium 8.8 mg/dL (8.4-10.2); Carbon Dioxide 31 mmol/L (22-30); Chloride 101 mmol/L (98-107); Estimated CRCL calculation 64 ml/min; Estimated Glomerular Filt Rate > 60; Glucose 101 mg/dL (65-105); Magnesium 2.2 mg/dL (1.6-2.3); Potassium 4.1 mmol/L (3.4-5.0); Sodium 137 mmol/L (137-145)
[2020-09-07] MEDS: METOPROLOL TARTRATE 25 MG TABLET PO ×2 (08:38→20:36)
[2020-09-07] MEDS: FUROSEMIDE INJ 40 MG/4 ML VIAL 20 MG IV PUSH (08:38)
[2020-09-07] MEDS: APIXABAN 5 MG TABLET 10 MG PO ×2 (08:38→20:36)
[2020-09-07] MEDS: DIGOXIN TAB 125 MCG TABLET PO (08:38)
--- NOTE | 2020-09-07 09:34 | PM.PNCARD ---
Progress Note: A&P Assessment and Plan (1) Cardiomyopathy: Code(s): I42.9 - Cardiomyopathy, unspecified Status: Acute Assessment and Plan: 70 y/o with no significant history with viral illness in April and gradual worsening of dyspnea/orthopnea since, found now to have new diagnosis of cardiomyopathy and new onset A fib with RVR She has new discovery of cardiomyopathy with biventricular failure, mostly right heart failure Etiology likely due to pulmonary embolism as noted on CT scan with high clot burden and subsequent hypoxia/pulmonary HTN causing RV strain and RV failure. Started on Eliquis 10 BID. She remains in A fib and HR is okay at rest but goes up with exertion, I think overall it is fair with current medication, she is going to need some time to recover as far as shortness of breath in view of multiple PEs, and mild left ventricular systolic dysfunction. She is okay to be discharged home may be today or tomorrow, and to have follow-up in our office in 1 week (2) Atrial fibrillation with rapid ventricular response: Code(s): I48.91 - Unspecified atrial fibrillation Status: Acute Assessment and Plan: Added Digoxin as above, heart rate seems to be fairly controlled not except for occasional episodes of tachycardia (3) Right heart failure: Code(s): I50.810 - Right heart failure, unspecified Status: Acute Assessment and Plan: As above Subjective Date/time seen: 09/07/20 09:34 She feels slightly better today, she is up in a chair, overall feels well, still noted to have significant tachycardia upon standing or walking, yesterday she had episode of significant tachycardia when she was on the phone when she getting emotional. At this time on my exam today her heart rate is 80. No dizziness no syncope Exam Const: General: no acute distress Eyes: Sclera: sclerae normal Neck: Neck: no JVD Carotids: no bruits Resp: Effort & Inspection: normal respiratory effort Auscultation: crackles Other: Bilateral bases of lungs Cardio: Rate: not tachycardic Rhythm: abnormal rhythm Heart sounds: S1 normal heart sound present, S2 normal heart sound present, no gallops, no murmurs and no rubs Skin: General skin exam: normal color Neuro: Cranial nerves: Yes Normal hearing present Speech: normal speech Extrem: General: normal to inspection and no edema Psych: Affect: normal affect Objective Data Vital Signs Vital Signs: Vital Signs - 24 hr 09/06/20 12:00 09/06/20 12:03 09/06/20 14:32 Temperature 36.2 C L Pulse Rate 93 86 91 Respiratory Rate 16 Blood Pressure 109/74 Pulse Oximetry 99 09/06/20 16:00 09/06/20 16:47 09/06/20 18:00 Temperature 36.5 C Pulse Rate 114 H 90 107 H Respiratory Rate 16 Blood Pressure 112/87 Pulse Oximetry 95 09/06/20 19:36 09/06/20 20:00 09/06/20 20:08 Temperature 36.4 C L Pulse Rate 99 111 H 112 H Respiratory Rate 16 Blood Pressure 129/78 Pulse Oximetry 96 09/06/20 22:00 09/06/20 23:51 09/07/20 00:00 Temperature 36.1 C L Pulse Rate 87 80 74 Respiratory Rate 16 Blood Pressure 102/71 Pulse Oximetry 90 09/07/20 02:00 09/07/20 04:00 09/07/20 06:00 Temperature 36.1 C L Pulse Rate 89 99 81 Respiratory Rate 16 Blood Pressure 97/65 L Pulse Oximetry 96 09/07/20 08:00 09/07/20 08:28 09/07/20 08:38 Temperature 35.7 C L Pulse Rate 84 91 94 Respiratory Rate 16 Blood Pressure 116/83 Pulse Oximetry 95 Intake/Output Intake/Output: Intake & Output 09/04/20 09/05/20 09/06/20 09/07/20 23:59 23:59 23:59 22:59 Intake Total 840 1800 2672 400 Output Total [address] [place] [id number] [phone] Meds/Results Medications: Active Medications Generic Name Dose Route Start Last Admin Trade Name Freq PRN Reason Stop Dose Admin Acetaminophen 650 mg 09/03/20 20:22 Acetaminophen 325 Mg Tablet PO Q4H PRN Mild Pain (1-3) or Feve
--- NOTE | 2020-09-07 09:38 | PM.IMPN ---
Progress Note: A&P Assessment and Plan (1) Atrial fibrillation with rapid ventricular response: Code(s): I48.91 - Unspecified atrial fibrillation Status: Acute Assessment and Plan: Patient most likely with new atrial fibrillation that probably started in June related to occult PE. She also has underlying CHF from the biventricular heart failure. BNP 3650. She was noted to have cardiomegaly by CT scan 1 month ago also probably related to the uncontrolled atrial fibrillation. TSH is normal. Echocardiogram as mentioned below. Heart rate better controlled with metoprolol and Digoxin. She was on Lovenox on admission for the AFib but changed to Eliquis. Cardiology following and appreciate their input. Increase activity level as tolerated to see how her HR is controlled. (2) Pulmonary embolism: Code(s): I26.99 - Other pulmonary embolism without acute cor pulmonale Status: Acute Assessment and Plan: Echo showing RV enlargement with reduced function. EF 45%. Moderate pulmonary HTN. CT chest showing acute pulmonary emboli in all lobes with peripheral airspace opacities in lateral segment right middle lobe and anterobasal segment left lower lobe, consistent with infarct. She also has a moderate-sized right pleural effusion that seems worse by CXR yesterday. She was started on Lovenox on admission and changed to Eliquis. Continue the same. (3) CHF (congestive heart failure): Code(s): I50.9 - Heart failure, unspecified Status: Acute Assessment and Plan: Patient with both right and left sided heart failure symptoms. Echo showing EF 45% probably related to Rt heart failure and/or tachycardia. RV dysfunction related to PE. Lasix given with good UOP and symptomatic improvement. Lasix decreased due to HoTN. Continue to monitor. Change Lasix to po since appears to be close to dry weight. (4) Right heart failure: Code(s): I50.810 - Right heart failure, unspecified Status: Acute Assessment and Plan: Echo showing RV enlarged with reduced RV function. Related to multilobar PE. SOB improved but still with O2 requirement. Remains on low dose IV Lasix with good diuresis. BP stable. Renal function remains normal. Monitor closely. Change to oral Lasix. (5) Cardiomyopathy: Code(s): I42.9 - Cardiomyopathy, unspecified Status: Acute Assessment and Plan: Echo showing EF 45%. Related to the PE and possible tachycardia induced CMP. Should have ischemic evaluation at some point to exclude occult CAD but felt not needed at this point. (6) Pneumonia: Qualifiers: Laterality: right Lung location: lower lobe of lung Pneumonia type: due to unspecified organism Qualified Code(s): J18.9 - Pneumonia, unspecified organism Code(s): J18.9 - Pneumonia, unspecified organism Status: Acute Assessment and Plan: CXR showing RLL airspace disease. She has a cough but no fever. CT scan showing more likely lung infarct then for PNA. Pneumococcal Ag negative. BCx NGTD. PNEUMONIA RULED OUT. Subjective Date/time seen: 09/07/20 09:38 Interval history: Date of service 09/07 70yo healthy female here for SOB and found to have new AFib, duration unclear and PE. She did get tachycardic at rest when she was on the phone with family (it was an emotional call). Slept ok last night. Still with slight burning mid right back. Right lower chest pain better. Mild cough. Exam Narrative: Exam Narrative: AF 96.3 116/83 94 16 95% 1L Gen - NARD Chest - decreased BS right base with left base inspir crackles, nml RR. no conversational dyspnea. CV - irregularly irregular; Tele showing AFib with mostly controlled rhythm overnight (elevated HR yesterday late afternoon) Abd - Soft, NT/ND, Positive BS Ext - No pitting pedal edema Psych - Nml mood and affect Skin - Warm and dry Objective Data Vital Signs Vital Signs:
--- NOTE | 2020-09-07 09:42 | PC.NURSE ---
Daylight Savings Time For Daylight Savings Time Ending in the Fall - Clocks are moved back. For Daylight Savings Time Beginning in the Spring - Clocks are moved ahead. For [facility], the time of change occurs at 0200 hrs. Time is taken from the drill runner helper. This entry on the patient's chart recognizes the change in time reflected during documentation. Example: 2 entries for vital signs may be charted for 0200 hrs.
[2020-09-08] VITALS (9 sets, daily range): BP systolic 101–122; BP diastolic 72–82; PULSE 75–99; RESP 18–20; TEMP 35.8–36.5; O2SAT 94–97
--- NOTE | 2020-09-08 08:33 | PM.DS ---
DS: Admitting Diagnosis Admitting Diagnosis Admitting Diagnosis: PE, New Onset AFIB DS: Discharge Diagnosis Discharge Diagnosis (1) Atrial fibrillation with rapid ventricular response: Code(s): I48.91 - Unspecified atrial fibrillation Status: Acute Assessment and Plan: Patient with new atrial fibrillation that probably started in June related to occult PE. She also has underlying CHF from the biventricular heart failure. BNP 3650. She was noted to have cardiomegaly by CT scan 1 month ago also probably related to the uncontrolled atrial fibrillation. TSH was normal. Echocardiogram as mentioned below. Heart rate better controlled with Diltiazem drip and then transitioned to metoprolol; Digoxin added due to persistent tachycardia and soft BP. She did have an episode of pre-syncope felt related to low BP. She was on Lovenox on admission for the AFib but changed to Eliquis. Cardiology followed and appreciated their input. Increase activity level as tolerated and HR climbed to 110's. (2) Pulmonary embolism: Code(s): I26.99 - Other pulmonary embolism without acute cor pulmonale Status: Acute Assessment and Plan: Echo showing RV enlargement with reduced function. LV function also reduced with EF 45%. Moderate pulmonary HTN. CT chest showing acute pulmonary emboli in all lobes with peripheral airspace opacities in lateral segment right middle lobe and anterobasal segment left lower lobe, consistent with infarct. She also has a moderate-sized right pleural effusion that seems worse by CXR 09/06/20. Lower extremity venous doppler negative for DVT. She was started on Lovenox on admission and changed to Eliquis. Continue the same. She was educated about the risks and benefits of anticoagulation. (3) CHF (congestive heart failure): Code(s): I50.9 - Heart failure, unspecified Status: Acute Assessment and Plan: Patient with both right and left sided heart failure symptoms. Echo showing EF 45% probably related to Rt heart failure and/or uncontrolled tachycardia. RV dysfunction related to PE. Lasix given with good UOP and symptomatic improvement. Lasix decreased due to HoTN and changed to oral route. She has become euvolemic. (4) Right heart failure: Code(s): I50.810 - Right heart failure, unspecified Status: Acute Assessment and Plan: Echo showing RV enlarged with reduced RV function. Related to multilobar PE. SOB improved and able to wean to room air. BP stable. Renal function remains normal. (5) Cardiomyopathy: Code(s): I42.9 - Cardiomyopathy, unspecified Status: Acute Assessment and Plan: Echo showing right and left sided failure. Related to the PE and possible tachycardia induced CMP. Mild elevation of ALT related to hepatic congestion - better on repeat after treatment. Should have ischemic evaluation at some point to exclude occult CAD but felt not needed at this point. (6) Pneumonia: Qualifiers: Laterality: right Lung location: lower lobe of lung Pneumonia type: due to unspecified organism Qualified Code(s): J18.9 - Pneumonia, unspecified organism Code(s): J18.9 - Pneumonia, unspecified organism Status: Acute Assessment and Plan: CXR showing RLL airspace disease. She has a cough but no fever. CT scan showing more likely lung infarct then for PNA. Pneumococcal Ag negative. BCx NGTD. PNEUMONIA RULED OUT. DS: Summary Hospital Course Reason for hospitalization: 70yo healthy female presents with SOB. Please see H&P for details. Hospital Course: As above Time Spent with Patient Time attestation: Total time spent providing and/or coordinating discharge services: 38 mnutes Time spent: Greater than 30 minutes Exam Narrative: Exam Narrative: AF 96.4 109/75 99 20 94% ra Gen - NARD Chest - decreased BS right base with minimal left base inspir crackles CV
[2020-09-08] MEDS: APIXABAN 5 MG TABLET 10 MG PO (08:47)
[2020-09-08] MEDS: METOPROLOL TARTRATE 25 MG TABLET PO (08:47)
[2020-09-08] MEDS: DIGOXIN TAB 125 MCG TABLET PO (08:47)
[2020-09-08] MEDS: FUROSEMIDE 20 MG TABLET PO (08:48)
--- NOTE | 2020-09-08 13:16 | PM.PNCARD ---
Progress Note: A&P Assessment and Plan (1) Cardiomyopathy: Code(s): I42.9 - Cardiomyopathy, unspecified Status: Acute Assessment and Plan: 70 y/o with no significant history with viral illness in April and gradual worsening of dyspnea/orthopnea since, found now to have new diagnosis of cardiomyopathy and new onset A fib with RVR She has new discovery of cardiomyopathy with biventricular failure, mostly right heart failure Etiology likely due to pulmonary embolism as noted on CT scan with high clot burden and subsequent hypoxia/pulmonary HTN causing RV strain and RV failure. Started on Eliquis 10 BID. She remains in A fib and HR is okay at rest but goes up with exertion, I think overall it is fair with current medication, she is going to need some time to recover as far as shortness of breath in view of multiple PEs, and mild left ventricular systolic dysfunction. She is okay to be discharged home may be today, and to have follow-up in our office in 1 week (2) Atrial fibrillation with rapid ventricular response: Code(s): I48.91 - Unspecified atrial fibrillation Status: Acute Assessment and Plan: Added Digoxin as above, heart rate seems to be fairly controlled not except for occasional episodes of tachycardia (3) Right heart failure: Code(s): I50.810 - Right heart failure, unspecified Status: Acute Assessment and Plan: As above she seems to be stable from cardiac standpoint to be discharged home, she needs to have a follow-up in our office in 1 week Subjective Date/time seen: 09/08/20 13:16 she feels much better today, she is up in a chair now, no chest pain no shortness of breath, still in atrial fibrillation with baseline rate of 80, but it goes up to as high as 100 to 110 with exertion Exam Const: General: no acute distress Eyes: Sclera: sclerae normal Neck: Neck: no JVD Carotids: no bruits Resp: Effort & Inspection: normal respiratory effort Auscultation: crackles Other: Bilateral bases of lungs Cardio: Rate: not tachycardic Rhythm: abnormal rhythm Heart sounds: S1 normal heart sound present, S2 normal heart sound present, no gallops, no murmurs and no rubs Skin: General skin exam: normal color Neuro: Cranial nerves: Yes Normal hearing present Speech: normal speech Extrem: General: normal to inspection and no edema Psych: Affect: normal affect Objective Data Vital Signs Vital Signs: Vital Signs - 24 hr 09/07/20 14:00 09/07/20 15:59 09/07/20 16:00 Temperature 36.3 C L Pulse Rate 90 94 97 Respiratory Rate 16 Blood Pressure 117/84 Pulse Oximetry 93 09/07/20 18:00 09/07/20 20:00 09/07/20 20:36 Temperature 36.6 C Pulse Rate 110 H 109 H 96 Respiratory Rate 20 Blood Pressure 102/71 Pulse Oximetry 97 09/07/20 22:00 09/07/20 23:29 09/08/20 00:00 Temperature 36.6 C Pulse Rate 80 76 75 Respiratory Rate 18 Blood Pressure 110/67 Pulse Oximetry 97 09/08/20 02:00 09/08/20 04:00 09/08/20 06:00 Temperature 36.5 C Pulse Rate 81 80 82 Respiratory Rate 20 Blood Pressure 122/82 Pulse Oximetry 97 09/08/20 08:00 09/08/20 08:22 09/08/20 08:47 Temperature 35.8 C L Pulse Rate 91 80 99 Respiratory Rate 20 Blood Pressure 109/75 Pulse Oximetry 94 09/08/20 12:00 09/08/20 12:36 Temperature 36.2 C L Pulse Rate 97 82 Respiratory Rate 18 Blood Pressure 101/72 Pulse Oximetry 97 Intake/Output Intake/Output: Intake & Output 09/06/20 09/07/20 09/07/20 09/08/20 00:59 00:59 23:59 23:59 Intake Total 300 Output Total 1300 Balance -1000 Meds/Results Medications: Active Medications Generic Name Dose Route Start Last Admin Trade Name Sinanq PRN Reason Stop Dose Admin Acetaminophen 650 mg 09/03/20 20:22 Acetaminophen 325 Mg Tablet PO Q4H PRN Mild Pain (1-3) or Fever Apixaban 10 mg 09/04/20 21:00 09/08/20 08:47 Apixaban 5 Mg Tablet PO 10
[2020-09-09 05:28] LABS: Legionella pneumophila Ag Ur Not Detected (Not Detected)
== END 2020-09-08 13:28 | disposition home or self-care (01) | DRG 308 ==
LOC: ANHED 20:21 → ANHIMU 21:09
PROVIDERS: Specialist; Admitting Provider Family Medicine; Emergency Provider Family Medicine; PCP Family Medicine; Visit Provider Internal Medicine
DX: I48.91 Unspecified atrial fibrillation (principal); I26.99 Other pulmonary embolism without acute cor pulmonale; I50.9 Heart failure, unspecified; I42.9 Cardiomyopathy, unspecified; I27.20 Pulmonary hypertension, unspecified; R55 Syncope and collapse; R00.0 Tachycardia, unspecified
CPT/HCPCS: 36415; 71045; 71046; 71275; 80048; 80053; 83735; 83880; 84100; 84443; 84484; 85025; 85027; 87040; 87449; 87899; 93005; 93306; 93308; 93970; 94640; 96361; 96374; 96375; 99285; A9270; J0456; J0696; J1160; J1650; J1940; J7030; J7040; Q9967

== ENCOUNTER 2020-09-15 09:33 | Outpatient (CLI) | payer MEDICARE, OTHER, SELFPAY ==
[2020-09-15 10:16] LABS: Basophils Percent Auto 0.6 % (0.2-1.2); Eosinophils Absolute Auto 0.1 K/mm3 (0-0.3); Hematocrit 45.5 % (37.0-47.0); Hemoglobin 14.9 g/dL (12.0-15.0); Immature Granulocyte Absolute 0.02 K/mm3 (0.00-0.031); Immature Granulocyte Percent A 0.3 % (0-0.5); Lymphocytes Absolute Auto 1.45 K/mm3 (0.9-3.2); Lymphocytes Percent Auto 23.3 % (18.3-44.2); Mean Corpuscular HGB Conc 32.7 g/dl (32-36); Mean Corpuscular Hemoglobin 29.5 pg (26-34); Mean Corpuscular Volume 90.1 fl (80-100); Mean Platelet Volume 8.7 fl (7.4-10.4); Monocytes Absolute Auto 0.4 K/mm3 (0.1-0.6); Monocytes Percent Auto 6.4 % (2.6-8.5); Neutrophils Absolute Auto 4.3 K/mm3 (1.3-6.7); Neutrophils Percent Auto 68.4 % (45.5-73.1); Platelet Count Result 307 k/mm3 (150-375); Red Blood Count 5.05 M/mm3 (4.2-5.4); Red Cell Distribution Width 12.6 % (11.5-14.5); White Blood Count 6.2 K/mm3 (4.5-10.0)
[2020-09-15 10:22] LABS: Alanine Aminotransferase 46 U/L (4-35); Albumin Level 4.1 g/dL (3.5-5.1); Alkaline Phosphatase 122 U/L (38-126); Anion Gap 7 mmol/L (8-16); Aspartate Amino Transferase 32 U/L (14-36); Blood Urea Nitrogen 20 mg/dL (7-17); Calcium 9.6 mg/dL (8.4-10.2); Carbon Dioxide 31 mmol/L (22-30); Chloride 101 mmol/L (98-107); Estimated Glomerular Filt Rate > 60; Glucose 106 mg/dL (65-105); Potassium 4.2 mmol/L (3.4-5.0); Sodium 139 mmol/L (137-145)
[2020-09-15 11:12] LABS: Digoxin 0.8 ng/mL (0.8-2.0)
== END 2020-09-15 09:34 | disposition home or self-care (01) ==
PROVIDERS: PCP Family Medicine; Visit Provider Internal Medicine
DX: I26.99 Other pulmonary embolism without acute cor pulmonale (principal); I42.9 Cardiomyopathy, unspecified; I48.91 Unspecified atrial fibrillation
CPT/HCPCS: 36415; 80053; 80162; 85025

== ENCOUNTER 2020-09-29 10:37 | Outpatient (CLI) | payer MEDICARE, OTHER, SELFPAY ==
--- NOTE | ~2020-09-29 | XR_ITS ---
XR chest 2V 09/29/2020 11:06 Indication: Pulmonary embolism. CHF. Procedure: PA and lateral views of the chest Comparison: 09/06/2020 Findings: Cardiomegaly. Focal right basilar airspace disease, suspicious for pneumonia. No pleural ef fusion, edema or pneumothorax. No acute osseous abnormality. Impression: 1: Focal right basilar airspace disease, suspicious for pneumonia. Reviewed, dictated and finalized at location A. LE STAYER OPERATOR Impression: 1: Focal right basilar airspace disease, suspicious for pneumonia.
== END 2020-09-29 10:38 | disposition home or self-care (01) ==
PROVIDERS: PCP Family Medicine; Referring Provider Internal Medicine; Visit Provider Family Medicine
DX: I26.99 Other pulmonary embolism without acute cor pulmonale (principal); R91.8 Other nonspecific abnormal finding of lung field
CPT/HCPCS: 71046

== ENCOUNTER → 2021-01-17 01:12 | Outpatient (CLI) | payer MEDICARE, OTHER, SELFPAY ==
[2021-01-17 18:54] LABS: SARS-CoV-2 RNA PCR Negative
== END ==
PROVIDERS: PCP Family Medicine; Visit Provider Internal Medicine
DX: Z01.812 Encounter for preprocedural laboratory examination (principal); Z20.822 Contact with and (suspected) exposure to COVID-19
CPT/HCPCS: C9803; U0003; U0005

== ENCOUNTER → 2021-01-20 01:30 | Day surgery (SDC) | payer MEDICARE, OTHER, SELFPAY ==
[2021-01-19 15:07] VITALS: BMI 24.9
[2021-01-20] VITALS (18 sets, daily range): BP systolic 92–130; BP diastolic 65–103; PULSE 51–89; RESP 15–22; TEMP 36.1–36.6; O2SAT 91–100; BMI 24.8
--- NOTE | 2021-01-20 | ECHO_ITS ---
Patient Info Name: Tana Fisher Age: 70 years : 1950 Gender: Female Ht: 67 in Wt: 158 lbs BSA: 1.85 m2 Exam Date: 01/20/2021 9:01 AM Exam Location: [facility] Pulmonary Patient Status: Outpatient Admit Date: 01/20/2021 Staff Ordering Physician: Lazara Nation MD ([facility]) Manager Of Security: Frederick Ray, WILL, RT Attending Provider: Lazara Nation MD [facility] Exam Type: CA echo transesophageal Study Info Indications I48.1 - Persistent atrial fibrillation Complete two-dimensional, color flow and Doppler transesophageal study is performed. Procedure Details The patient arrived in a fasting state after obtaining informed consent. Moderate sedation (Versed and Fentanyl) was administered by RN under my direct supervision. The transesophageal probe was passed into the posterior pharynx, mid-esophagus, distal esophagus, and gastric fundus. Imaging was performed at multiple levels. The patient tolerated the procedure well and there were no complications. The patient was transferred out of the examination area in satisfactory condition. Summary 1. Transesophageal echocardiogram under moderate sedation. 2. Left ventricular chamber dimension is normal. 3. Left ventricular systolic function is mildly reduced with an ejection fraction of 45%. 4. Right ventricular chamber dimension is mildly enlarged. 5. Right ventricular systolic function is normal. 6. Left atrial appendage has moderately dense smoke and decreased velocity but no clots. 7. There is no PFO by color flow doppler. 8. The mitral valve has mildly thickened leaflets. 9. There is mild mitral valve regurgitation. 10. There is trace tricuspid valve regurgitation. 11. There is no pericardial effusion. 12. Underlying rhythm, Atrial fibrillation. Left Ventricle Left ventricular systolic function is mildly reduced with an ejection fraction of 45%. Left ventricular chamber dimension is normal. There is no increased left ventricular wall thickness. Right Ventricle Right ventricular chamber dimension is mildly enlarged. Right ventricular systolic function is normal. Left Atria Left atrial chamber dimension is normal. Right Atria Right atrial chamber dimension is normal. Atrial Septum There is no PFO by color flow doppler. Atrial Appendage Left atrial appendage has moderately dense smoke and decreased velocity but no clots. Aortic Valve The aortic valve is trileaflet. There is no aortic valve sclerosis. There is no aortic valve stenosis. There is no aortic valve regurgitation. Pulmonic Valve The pulmonic valve is normal. There is no pulmonic valve stenosis. There is no pulmonic regurgitation. Mitral Valve The mitral valve has mildly thickened leaflets. There is no mitral valve stenosis. There is mild mitral valve regurgitation. Tricuspid Valve The tricuspid valve leaflets are normal. There is trace tricuspid valve regurgitation. No pulmonary hypertension, estimated pulmonary arterial systolic pressure is 13 + RA pressure. Pericardium/Pleural The pericardium appears normal. There is no pericardial effusion. Aorta The prox ascending aorta size is normal. Tricuspid Valve Name Value Normal TV Regurgitation Doppler TR Pea
--- NOTE | 2021-01-20 07:28 | PM.IMHP ---
H&P: HPI History of Present Illness Date/Time: 01/20/21 07:28 70 y/o with no significant past medical history up until Sep 2020 when presented to [facility] with dyspnea. She had viral illness in May and since has been feeling short of breath that has been gradually worse. She was noted to be in A fib with RVR. She had 2D echo that shows right heart enlargement /dysfunction with low normal LV EF. She had CT of chest that revealed multiple PEs and pulmonary infarcts in both lungs. She was started on Metoprolol. Digoxin for rate control. She was also started on lisinopril but that was stopped due to hypotension and dizziness. She was discharged on Eiquis for AC. She has been doing well overall since discharge except for fatigue. She had follow up echo that revealed improved RV size/function. She presented now for elective LORETA and cardioversion. She remains on Eliquis. Digoxin was d/julianna 2 weeks ago *Had ECHO done in 12/05/20 showed Atrial Fibrillation is present. LV chamber is mildly dilated. LV Wall Thickness is Normal. LV systolic function is low normal. The estimated left ventricle ejection fraction is 45-60% (abnormal). Diastolic function is indeterminate due to atrial fibrillation. RV size is mildly dilated. The RV systolic function is normal. Left Atrium chamber is moderately dilated. Right Atrium chamber is mildly dilated. Mitral valve prolapse is present. The mitral valve leaflet is mildly thickened. There is mild mitral regurgitation. There is mild tricuspid regurgitation. There is mild pulmonic regurgitation. Atrial Fibrillation. Chief Complaint: Dyspnea. A fib Review of Systems Review of Systems: All systems reviewed & are unremarkable except as noted in HPI and below Constitutional: Constitutional: Denies fatigue and Denies headache(s) Eyes: Eyes: Denies blurry vision ENT: Reports Normal hearing present and Denies headache(s) Cardiovascular: Cardiovascular: Denies chest pain, Denies diaphoresis, Denies pedal edema, Denies leg edema, Denies lightheadedness, Denies palpitations and Denies dyspnea Respiratory: Respiratory: Denies cough and Denies dyspnea Gastrointestinal: Gastrointestinal: Denies abdominal pain Musculoskeletal: Musculoskeletal: Denies back pain Neurologic: Reports Normal hearing present and Denies headache(s) Psychiatric: Psychiatric: Denies anxiety Endocrine: Endocrine: Denies fatigue and Denies palpitations [facility] Surgical History Surgical History History of cataract surgery Family History Family History Mother Ovarian cancer Diabetes mellitus Family history of malignant neoplasm of uterus Carcinoma of colon Sibling Diabetes mellitus Father Family history of malignant neoplasm Family history of thyroid disease Grandparent Family history of malignant neoplasm Multiple myeloma Grandparent Multiple myeloma Other Hypertension Social History Social History Smoking status: Never smoker Second hand tobacco smoke exposure: No Alcohol intake: former Drinks per week: 1 Substance use: never Substance use type: does not use Living arrangements: alone Gender identity (if verbalized by the patient): Female Sexual Orientation (if Verbalized by the Patient): Straight or Heterosexual Spiritual care concerns: No Meds Home Medications and Allergies Home Medications Medication Instructions Recorded Confirmed Type apixaban [Eliquis] 5 mg PO Q12H #60 tablet 09/08/20 01/20/21 Rx apixaban [Eliquis] 10 mg PO Q12HR #14 tablet 09/08/20 01/20/21 Rx digoxin 125 mcg PO QAM #30 tablet 09/08/20 01/20/21 Rx furosemide 20 mg PO DAILY #30 tablet 09/08/20 01/20/21 Rx metoprolol tartrate 25 mg PO Q12HR #60 tablet 09/08/20 01/20/21 Rx Allergies Allergy/AdvReac Type Severity Reaction Status Date / Time No Known
--- NOTE | 2021-01-20 07:30 | ECG_ITS ---
Measurements Intervals [place] Rate: 85 P: MS: 0 QRS: -19 QRSD: 89 T: 149 QT: 381 QTc: 454 Interpretive Statements ATRIAL FIBRILLATION VENTRICULAR PREMATURE COMPLEX BORDERLINE ST-T WAVE ABNORMALITY- DIFFUSE LEADS BASELINE ARTIFACT- I, II, AVR ABNORMAL ECG Electronically Signed On 01-20-2021 8:08:30 CDT by Michael Storm D.O.
[2021-01-20 08:17] LABS: Anion Gap 7 mmol/L (8-16); Blood Urea Nitrogen 23 mg/dL (7-17); Calcium 9.2 mg/dL (8.4-10.2); Carbon Dioxide 28 mmol/L (22-30); Chloride 104 mmol/L (98-107); Estimated CRCL calculation 64 ml/min; Estimated Glomerular Filt Rate > 60; Glucose 114 mg/dL (65-105); Potassium 4.1 mmol/L (3.4-5.0); Sodium 139 mmol/L (137-145)
--- NOTE | 2021-01-20 09:35 | ECG_ITS ---
Measurements Intervals [place] Rate: 65 P: 69 MS: 200 QRS: -19 QRSD: 94 T: 117 QT: 448 QTc: 469 Interpretive Statements SINUS BRADYCARDIA SHORT RUNF OF ATRIAL TACHYCARDIA AND ATRIAL PREMATURE COMPLEX BORDERLINE AV CONDUCTION DELAY ST-T WAVE ABNORMALITY IN ANTEROLAT/HIGH LAT LEADS- CONSIDER ISCHEMIA ABNORMAL ECG Electronically Signed On 01-20-2021 9:47:31 CDT by Michael Storm D.O.
--- NOTE | 2021-01-20 09:47 | WPDTECDV ---
LORETA with Cardioversion Date of procedure: 01/20/21 Procedure Type: LORETA/Cardioversion Diagnosis: Atrial fibrillation, Mild LV dysfunction. H/o Pulmonary Embolism with RV failure. Indications: Atrial Fibrillation Description of Procedure: Cardioversion: Consent for operation or procedure: Risks and benefits discussed with patient and consent obtained Anesthesia: versed 4 mg/fentanyl 25 mg/Benadryl 50 mg. Start time 9:08 am. End time 09:32 am. Anesthesia was administered per RN under my direct supervision The appropriate time-out procedure was performed including proper identification of the patient, physician, procedure, documentation, and there were no safety issues identified. The patient participated actively in this. The patient's posterior pharynx was anesthetized. The transesophageal probe was introduced into the posterior pharynx and esophagus without difficulty. .No left atrial appendage clot identified (LORETA to be fully reported separately). The probe was removed. Patient was placed in the supine position and hands free patches were placed on her chest in the Anterior/mid axillary position. 1 shock was provided at, 100 Joules with successful resumption of normal sinus rhythm. This was confirmed on EKG. Complications: The patient tolerated the procedure well without complications. Sedation: Moderate sedation with versed 4 mg /fentanyl 25 mg/Benadryl 50 mg Findings: Successful cardioversion Conclusion: Successful Cardioversion
--- NOTE | 2021-01-20 09:53 | PM.DS ---
DS: Admitting Diagnosis Admitting Diagnosis Admitting Diagnosis: Atrial Fibrillation. Tachy induced cardiomyopathy DS: Discharge Diagnosis Discharge Diagnosis (1) Atrial fibrillation: Code(s): I48.91 - Unspecified atrial fibrillation Status: Acute Assessment and Plan: As her LV function remains low will proceed with cardioversion as she may have tachy induced cardiomyopathy. LORETA showed No left atrial appendage clot. Patient underwent cardioversion with congregation of normal sinus rhythm. Patient tolerated procedure well. Will decrease Metoprolol dose to 12.5 mg daily as she has sinus bradycardia in 50s post cardioversion Continue ELiquis Follow up in the office in 1 week (2) CHF (congestive heart failure): Code(s): I50.9 - Heart failure, unspecified Status: Acute Assessment and Plan: Appears well compensated Continue BB Could not tolerate ADRIANO with dizziness and hypotnesion (3) Pulmonary embolism: Code(s): I26.99 - Other pulmonary embolism without acute cor pulmonale Status: Acute Assessment and Plan: Sep 2020. Continue Eliquis DS: Summary Hospital Course Hospital Course: Successful cardioversion. See H&P for details Time Spent with Patient Time attestation: Total time spent providing and/or coordinating discharge services: Exam Const: General: no acute distress Eyes: Sclera: sclerae normal Neck: Neck: no JVD Carotids: no bruits Resp: Effort & Inspection: normal respiratory effort Auscultation: clear to auscultation bilaterally Cardio: Rate: regular rate and not tachycardic Rhythm: regular rhythm Heart sounds: no gallops, no murmurs and no rubs Skin: General skin exam: normal color Neuro: Cranial nerves: Yes Normal hearing present Speech: normal speech Extrem: General: normal to inspection and no edema Psych: Affect: normal affect DS: Data Data Completed and Pending Labs on day of discharge: Labs from last 24 hours 01/20/21 07:54 Sodium 139 Potassium 4.1 Chloride 104 Carbon Dioxide 28 Anion Gap 7 L BUN 23 H Creatinine 0.70 Estim Creat Clear Calc 64 Estimated GFR > 60 Glucose 114 H Calcium 9.2 Magnesium 2.0 Discharge Plan Discharge Patient Disposition: Home, Self-Care Stand Alone Forms: General Discharge Instructions Follow-up/Referrals: Lazara Nation MD [Physician] - Discharge Medications: Continued furosemide 20 mg Tablet 20 mg PO DAILY Qty: 30 RF: 2 metoprolol tartrate 25 mg Tablet 25 mg PO Q12HR Qty: 60 RF: 2 Eliquis 5 mg Tablet 10 mg PO Q12HR Qty: 14 RF: 0 Eliquis 5 mg tablet 5 mg PO Q12H Qty: 60 RF: 2 Discontinued digoxin 125 mcg (0.125 mg) Tablet 125 mcg PO QAM Qty: 30 RF: 2 Quality VTE Prophylaxis VTE prophylaxis: pharmacologic ordered (Currently on Lovenox 1 milligram/kilogram for AFib/RVR.)
== END | disposition home or self-care (01) ==
PROVIDERS: PCP Family Medicine; Visit Provider Internal Medicine
PROC: (CPT 93312; principal; 2021-01-20 09:00)
PROC: 5A2204Z Restoration of Cardiac Rhythm, Single (ICD-10-PCS; 2021-01-20 09:00)
DX: I48.19 Other persistent atrial fibrillation (principal); R06.00 Dyspnea, unspecified; Z79.01 Long term (current) use of anticoagulants; I50.9 Heart failure, unspecified; I26.99 Other pulmonary embolism without acute cor pulmonale; Z86.711 Personal history of pulmonary embolism; Z87.09 Personal history of other diseases of the respiratory system
CPT/HCPCS: 36415; 80048; 83735; 92960; 93005; 93312; 93320; 93325; J1200; J2250; J3010; J7040

== ENCOUNTER 2021-08-14 14:01 | Emergency (ER) | payer MEDICARE, OTHER, SELFPAY ==
[2021-08-14 14:15] VITALS: BP 137/81; PULSE 83; RESP 18; TEMP 37.1; O2SAT 98
--- NOTE | 2021-08-14 15:27 | ED.GENADULT ---
HPI - General Adult General Chief complaint: Skin/Abscess/Foreign Body Stated complaint: wound on finger Time Seen by Provider: 08/14/21 15:26 Source: patient Mode of arrival: ambulatory Limitations: no limitations History of Present Illness HPI narrative: Patient is here for treatment of left index finger pain. She has a abscess paronychia at the nail left nailbed. She has been treating at home with tea tree oil. She is unaware of any injury or recent hangnail. She did recently move and has been working in a lot of [employer] boxes. Pain is started 1 week ago. Onset (ago): day(s) Associated symptoms: denies other symptoms Related Data Home Medications Medication Instructions Recorded Confirmed furosemide 20 mg PO PRN 08/14/21 Allergies Allergy/AdvReac Type Severity Reaction Status Date / Time prednisone Allergy Rash Verified 08/14/21 14:36 Review of Systems Review of Systems: All systems reviewed & are unremarkable except as noted in HPI and below PMFSH Surgical History Surgical History History of cataract surgery Family History Family History Mother Ovarian cancer Diabetes mellitus Family history of malignant neoplasm of uterus Carcinoma of colon Sibling Diabetes mellitus Father Family history of malignant neoplasm Family history of thyroid disease Grandparent Family history of malignant neoplasm Multiple myeloma Grandparent Multiple myeloma Other Hypertension Social History Social History Smoking status: Never smoker Second hand tobacco smoke exposure: No Alcohol intake: former Drinks per week: 1 Substance use: never Substance use type: does not use Gender identity (if verbalized by the patient): Female Sexual Orientation (if Verbalized by the Patient): Straight or Heterosexual Spiritual care concerns: No Exam Const: General: no acute distress and alert Orientation/consciousness: patient oriented x3 Resp: Effort & Inspection: normal respiratory effort Auscultation: clear to auscultation bilaterally Cardio: Rate: regular rate Rhythm: regular rhythm Skin: General skin exam: normal color Extrem: Left upper extremity: full ROM and hand warmth, swelling and other (paronychia with abscess index fingernail) Course Vital Signs Vital signs: Vital Signs Temperature 37.1 C 08/14/21 14:15 Pulse Rate 83 08/14/21 14:15 Respiratory Rate 18 08/14/21 14:15 Blood Pressure 137/81 08/14/21 14:15 Pulse Oximetry 98 08/14/21 14:15 Temperature 37.1 C 08/14/21 14:15 Pulse Rate 83 08/14/21 14:15 Respiratory Rate 18 08/14/21 14:15 Blood Pressure 137/81 08/14/21 14:15 Pulse Oximetry 98 08/14/21 14:15 Procedures Abscess I/D hand: Date of Incision: 08/14/21 Time of Incision: 16:23 Side (if applicable): left (index finger) Local Anesthetic: lidocaine 1% (digital block) Amount of anesthesia used (mL): 5 Technique: incised with #11 blade (opened at nail bed) Amount of fluid expressed (mL): 1 Irrigation: No Packing used?: none I&D Results: Pus and Blood Abcess I&D Additional Comments: Tolerated well. Covered with antibiotic ointment and dressing. Patient given instructions for care. Medical Decision Making Vital Signs Vital Signs: Vital Signs Temperature 37.1 C 08/14/21 14:15 Pulse Rate 83 08/14/21 14:15 Respiratory Rate 18 08/14/21 14:15 Blood Pressure 137/81 08/14/21 14:15 Pulse Oximetry 98 08/14/21 14:15 Temperature 37.1 C 08/14/21 14:15 Pulse Rate 83 08/14/21 14:15 Respiratory Rate 18 08/14/21 14:15 Blood Pressure 137/81 08/14/21 14:15 Pulse Oximetry 98 08/14/21 14:15 Discharge Plan Discharge Clinical Impression: Paronychia of finger of left hand, A
[2021-08-14 16:28] VITALS: BP 125/86; PULSE 81; RESP 20; O2SAT 98
== END 2021-08-14 16:30 | disposition home or self-care (01) ==
PROVIDERS: Emergency Provider Emergency Medicine
DX: L03.012 Cellulitis of left finger (principal); Z98.49 Cataract extraction status, unspecified eye
CPT/HCPCS: 26010; 99283

== ENCOUNTER → 2021-08-22 00:53 | Outpatient (CLI) | payer MEDICARE, OTHER, SELFPAY ==
[2021-08-22 17:04] LABS: SARS-CoV-2 RNA PCR Negative
== END ==
DX: Z01.818 Encounter for other preprocedural examination (principal); I48.91 Unspecified atrial fibrillation; Z20.822 Contact with and (suspected) exposure to COVID-19
CPT/HCPCS: C9803; U0003; U0005

== ENCOUNTER → 2022-04-01 08:50 | Outpatient (CLI) | payer MEDICARE, OTHER, SELFPAY ==
--- NOTE | ~2022-04-01 | XR_ITS ---
EXAMINATION: CT abdomen pelvis wo/w con, XR abdomen/kub 1V DATE: 04/01/2022 09:41 INDICATION: Microhematuria TECHNIQUE: 1. Computed tomography (CT) of the abdomen and pelvis was performed without intravenous contrast. CT of the abdomen and pelvis was then performed with a total of 130 mL Omnipaque-350 intravenous contras t using a double-bolus technique for simultaneous opacification of the renal parenchyma and renal col lecting system. Automated exposure control and iterative reconstruction technique were employed. The dose-length product was 1440.11 mGy-cm. 2. AP view of the abdomen and pelvis was obtained on 2 overlapping radiographs. COMPARISON: 08/01/2020 FINDINGS: CT: Calcified pulmonary nodules in the bilateral lower lobes, calcified right infrahilar lymph nodes and a few splenic calcifications, all consistent with old granulomatous disease. Cardiomegaly. Dense mitr al annular calcification. No pericardial or pleural effusion. Mobile calcified gallstone in the depen dent fundus of the gallbladder. Liver and bilateral adrenal glands are normal. No significant change in a 1.6 cm cystic lesion at the head of the pancreas. Kidneys are normal with symmetric renal enhanc ement and no urolithiasis or hydronephrosis. The proximal half of the bilateral normal caliber ureter s are opacified with contrast on delayed images with no urothelial irregularities identified at the b ilateral renal collecting systems and contrast opacified portions of the ureters. Bladder is normal. The uterus is not identified and has likely been surgically resected. There are few scattered diverti cula primarily along the descending colon without adjacent inflammatory change to suggest diverticula r colitis. No bowel obstruction. No free intraperitoneal gas or fluid. No pathologically enlarged abd ominal or pelvic lymphadenopathy. Mild lumbar and moderate lower thoracic spondylosis. KUB: The spiculated appearing calcified gallstone clearly seen in the right upper quadrant projecting over the mid right kidney. No urolithiasis. Normal bowel gas pattern. Couple phleboliths in the left kash pelvis. IMPRESSION: 1. No etiology identified for reported microscopic hematuria with normal kidneys and ureters with no evident urolithiasis. 2. Cardiomegaly. 3. Cholelithiasis. Reviewed, dictated and finalized at location B. IMPRESSION: 1. No etiology identified for reported microscopic hematuria with normal kidney s and ureters with no evident urolithiasis. 2. Cardiomegaly. 3. Cholelithiasis.
[2022-04-01 09:18] LABS: Estimated Glomerular Filt Rate > 60
== END ==
PROVIDERS: PCP Nurse Practitioner Adult Health; Visit Provider Nurse Practitioner Adult Health
DX: R31.29 Other microscopic hematuria (principal); I51.9 Heart disease, unspecified; M47.815 Spondylosis without myelopathy or radiculopathy, thoracolumbar region; K80.20 Calculus of gallbladder without cholecystitis without obstruction
CPT/HCPCS: 74018; 74178; Q9967

== ENCOUNTER 2024-02-13 12:54 | Outpatient (CLI) | payer MEDICARE, OTHER, SELFPAY ==
--- NOTE | ~2024-02-13 | MM_ITS ---
EXAMINATION: MM screening jeny BI w niharika HISTORY: Screening mammogram TECHNIQUE: Craniocaudal and mediolateral oblique 3-D tomosynthesis images were obtained and synthetic 2-D images were generated. CAD analysis was submitted and interpreted. COMPARISON: 06/19/2020, 05/02/2018 bilateral screening mammogram examinations BREAST PARENCHYMAL COMPOSITION: There are scattered areas of fibroglandular density. FINDINGS: There is no evidence of suspicious mass, calcification, or architectural distortion to sugg est malignancy in either breast. There has been no suspicious interval change. IMPRESSION: 1. No mammographic evidence of malignancy. 2. Recommend routine screening mammography in one year. BI-RADS Category 1: Negative Reviewed, dictated and finalized at location B.
== END 2024-02-13 12:55 | disposition home or self-care (01) ==
LOC: ANHIMG 12:57
PROVIDERS: PCP Nurse Practitioner Family; Visit Provider Nurse Practitioner Family
DX: Z12.31 Encounter for screening mammogram for malignant neoplasm of breast (principal)
CPT/HCPCS: 77063; 77067

== ENCOUNTER 2024-12-29 20:02 | Outpatient (CLI) | payer MEDICARE, OTHER, SELFPAY ==
--- OUTSIDE RECORDS SUMMARY | 2024-12-29 20:11 | XMS_ITS | Referral Summary ---
Author Organization [facility] Address [address] [place] [phone] Care Team Providers Care Drier Unloader Name Role Phone Estrella Acosta NP Primary Care Provider Katlin Carnes NP Unavailable Mike Mcpherson MD Unavailable [phone] Jaciel Rangel MD Unavailable [phone] Encounters Date Type Department Care Team Description 12/25/2024 2:00 PM ASSISTANT MANAGER TRAINEE - 12/25/2024 11:59 PM ASSISTANT MANAGER TRAINEE Hospital Encounter [facility] Radiology [facility] [address] [place] [address] Diagnosis unknown Discharge Disposition: Discharge to home or self care 12/24/2024 Orders Only [facility] Scanning, Provider 11/20/2024 Telephone [facility] Gastroenterology [facility] [address]th [place] [address] [place] [address] Osmin Rapp 11/13/2024 1:15 PM ASSISTANT MANAGER TRAINEE Office Visit [facility] Cardiology [address] [facility] Medical Office Building [address] [place] [address] Mela Carvalho NP Atrial fibrillation and flutter (HCC) (Primary Dx) 10/19/2024 Orders Only [facility] Gastroenterology [facility] [address] [place] [address] [place] [address] Emanuel Solano MD Pancreatic lesion (Primary Dx) 10/19/2024 Telephone [facility] Gastroenterology [address] [facility] Medicine 12th [place] [address] [place] [address] Osmin Rapp 10/18/2024 Telephone [facility] Gastroenterology [address] [facility] [address] [place] [address] [place] [address] Dionte, Berry 10/17/2024 Orders Only [facility] Cardiology [address] [facility] 8th [place] [address] [place] [address] Edinson Bridges MD PhD Pancreatic lesion (Primary Dx) 10/16/2024 6:07 AM [facility] - 10/17/2024 10:[address] [phone] Edinson Bridges MD PhD Ervin Smalls MD Mulla, MD Wolf Emerson, Sarina Diana MD Atrial fibrillation and flutter (HCC) [I48.91, I48.92] (Primary Dx); Atypical atrial flutter (CMS/HCC) (HCC) Discharge Disposition: Discharge to home or self care 10/16/2024 7:30 AM [facility] - 10/16/2024 11:55 AM [facility] Surgery [facility] Electrophysiology Lab [address] [place] [phone] Edinson Bridges MD PhD ABLATION SUPRAVENTRICULAR TACHYCARDIA (SVT) [id number] 10/16/2024 7:34 AM [facility] Anesthesia [facility] Electrophysiology Lab [address] [place] [phone] Mika Koo MD Gangloff, Kerry Marie, NP 10/15/2024 12:55 PM [facility] Anesthesia Event [facility] [address] [place] [phone] Antonia Hoskins MD 10/15/2024 9:06 AM [facility] - 10/15/2024 11:59 PM ASSISTANT MANAGER TRAINEE Hospital Encounter [facility] [address] [place] [phone] Atypical atrial flutter ([facility]/HCC) ([facility]) Discharge Disposition: Discharge to home or self care 10/15/2024 7:30 AM ASSISTANT MANAGER TRAINEE Pre-Admission Testing [facility] for Preoperative Assessment and Planning [facility] [address] [place] [id number] Atypical atrial flutter ([facility]/HCC) ([facility]) 10/15/2024 11:40 AM ASSISTANT MANAGER TRAINEE - 10/15/2024 11:59 PM ASSISTANT MANAGER TRAINEE Hospital Encounter [facility] [address] [place] [phone] Edinson Bridges MD PhD Antonia Hoskins MD Atypical atrial flutter ([facility]) ([facility]); Pre-op testing Discharge Disposition: Discharge to home or self care 10/12/2024 Telephone [facility] V[facility] [address] [phone] Di Lam RN from Last 3 Months Allergies Active Allergy Reactions Criticality Noted Date Comments Prednisone Rash Medium 05/08/2021 Itching/burning rash Thimerosal Itching,Other (See comments),Redness Low 06/27/2024 Preservative in contact precision lens polisher-caused redness, itching and burning of eyes Medications Eliquis 5 mg tabletIndications :Atrial fibrillation and flutter (HCC),Chronic HFrEF (heart failure with reduced ejection fraction) ([facility]) ([facility]) Take 1 tablet (5 mg total) by mouth 2 (two) times a day 180 tablet 3 4 Active imiquimod (ALDARA) 5 % cream Apply 1 packet topically as needed (wart) 4 Active acetaminophen (TYLENOL) 500 mg tablet Take 1 tablet (500 mg total) by mouth every 6 (six) hours as needed for pain Active metoprolol XL (TOPROL-XL) 25 mg extended release tablet Take 0.5 tablets (12.5 mg total) by mouth daily 15 tablet 4 Active Active Problems Problem Noted Date Diagnosed Date Atypical atrial flutter (CMS/HCC) 10/16/2024 Atrial flutter (CMS/HCC) 06/15/2024 Assessment & Plan (10/17/2024 1:05 PM ASSISTANT MANAGER TRAINEE): The patient has prior history of atrial flutter status post LORETA ablation. S/p repeat ablation by EP on 10/16 No postprocedure complications noted Metop 25 XL held post procedure per EP -> resume at discharge at 12.5 mg daily Continues on eliquis 5 bid OTC PPI daily x 1 month post ablation F/u with EP scheduled 11/13/24 Medicare annual wellness visit, subsequent 05/22 Assessment & Plan (05/22/2024 10:24 AM CDT): A yearly Medicare Annual Wellness Visit has been performed today. Tana Fisher is not up to date on screening tests. She is in need of DEXA and Colon cancer screening- these have been ordered. She is not up to date on needed preventative vaccinations; She is in need of Covid-19 (booster). These have been ordered/arranged unless otherwise indicated. Other thrombophilia 03/19/2024 Precordial pain 07/21/2023 Nonrheumatic mitral valve regurgitation 07/21/20 23 Mitral valve prolapse 07/21/2023 Mixed hyperlipidemia 07/21/2023 Assessment & Plan (05/22/2024 10:25 AM CDT): Continuing to follow with Cardiology, patient states they are following to see if statin needed. Atrial flutter with rapid ventricular response 0 07/04/2023 Assessment & Plan (2023 9:52 AM CDT): Following with Cardiology. No changes today. Patient asymptomatic in office. Rate a little up initially, on auscultation it is normal rate. Patient has been monitoring her rate and will report to Cardio if needed. Arthritis 07/04/2023 COVID-19 virus RNA test resu lt positive at limit of detection 07/04/2023 Hypocalcemia 07/04/2023 Pulmonary embolism 08/25/2021 Assessment & Plan (10/16/2024 7:22 PM ASSISTANT MANAGER TRAINEE): Continue with Eliquis 5 mg p.o. b.i.d. Assessment & Plan (08/26/2021 12:31 PM CDT): Diagnosed 08/2020. -continue eliquis Assessment & Plan (08/25/2021 5:34 PM CDT): Diagnosed 08/2020. -continue eliquis History of local infection of skin and subcutane ous tissue 08/25/2021 Assessment & Plan (08/26/2021 12:31 PM CDT): Recent I&D of left index finger s/p bactrim, no warmth/erythema on exam, denies fevers Assessment & Plan (08/25/2021 5:34 PM CDT): Recent I&D of left index finger s/p bactrim, no warmth/erythema on exam, denies fevers Chronic HFrEF (heart failure with reduced ejection fraction) ([facility]) 08/25/2021 Assessment & Plan (10/17/2024 1:04 PM ASSISTANT MANAGER TRAINEE): Follows with [facility] Cardiology. Recent TTE was remarkable for mildly dilated LV with mildly decreased global LV systolic function w/ estimated EF=45%. LA is markedly dilated. Moderate APOORVA. Mild MR. Normal LV wall thickness/mass. Normal Inferior vena cava. Normal aorta. The patient remains on metoprolol XL 25 mg which is currently on hold postprocedure but is otherwise not on GDMT -> decreased to metop XL 12.5 mg daily at discharge Assessment & Plan (05/22/2024 10:25 AM CDT): Stable, continuing follow up with Cardiology. Assessment & Plan (08/26/2021 12:30 PM CDT): EF 40% 02/2021. Currently denies ROCKWELL, orthopnea, GABINO -continue metoprolol xl 12.5mg BID -lasix 20mg every day PRN Assessment & Plan (08/25/2021 5:33 PM CDT): EF 40% 02/2021. Currently denies ROCKWELL, orthopnea, GABINO -continue metoprolol xl 12.5mg BID -lasix 20mg every day PRN Atrial fibrillation and flutter 06/29/2021 Overview (06/29/2021): Added automatically from request for surgery [id number] Assessment & Plan (08/26/2021 12:30 PM CDT): Diagnosesd 08/2020. S/p ablation 08/25/21. Admit for post-procedure monitoring -continue metoprolol xl 12.5mg BID -continue eliquis 5mg BID -continue PPI x1mo (~10/2021) -telemetry monitoring- sinus rhythm Patient tolerating po intake, ambulating, and urinating prior to discharge. Assessment & Plan (08/25/2021 5:33 PM CDT): Diagnosesd 08/2020. S/p ablation 08/25/21. Admit for post-procedure monitoring -continue metoprolol xl 12.5mg BID -continue eliquis 5mg BID -continue PPI x1mo (~10/2021) -telemetry monitoring Immunizations Immunization Administration Dates Next Due Hep A / Hep B 03/13/2018,09/14/2017,08/14/2017 Influenza, Quadrivalent, Bailee l Culture-based MDCK, Preservative Free, Antibiotic Free, Intramuscular 06/22/2017 Influenza, Quadrivalent, Hig h Dose, Preservative Free, Intrr 08/03/2021 Influenza, Quadrivalent, Spl it, Preservative Free, Intramuscular 08/10/2019 Influenza, Trivalent, High D ose, Split, Preservative Free, Intramuscular 07/16/2018 Influenza, Trivalent, Preser vative Free, Intramuscular 07/30/2020,06/29/2016 Influenza, Unspecified 08/21/2024,2022(Deferred: Patient Refused),11/07/2022(Deferred: Patient Refused) Pfizer SARS-CoV-2 Monovalent Vaccination (12+ Yrs) PURPLE 08/24/2022 Pfizer Sars-Cov-2 Bivalent V accination (12+ YRS) 07/23/2023 Pneumococcal Conjugate PCV 13 07/16/2018 Pneumococcal Polysaccharide PPV23 08/10/2019 RSV Vaccine, Pref, Recombina nt, Subunit, Adjuvanted, PF, IM (Arexvy) 08/31/2023 Tdap 06/29/2016 ZOSTER LIVE 06/22/2017 ZOSTER Recombinant 05/12/2021,02/26/2021 Social History Tobacco Use Types Packs/Day Years Used Date Smoking Tobacco: Never Smokeless Tobacco: Never Tobacco Cessation:Counseling Given: Not Answered Social Connection and Isolat ion Panel [NHANES] Answer Date Recorded In a typical week, how many times do you talk on the phone with family, friends, or neighbors? More than three times a week 07/05/2023 How often do you get togethe r with friends or relatives? More than three times a week 07/05/2023 How often do you attend chur ch or pentecostal services? Never 07/05/2023 Do you belong to any clubs o r organizations such as nondenominational groups, unions, fraternal or athletic groups, or school groups? No 07/05/2023 How often do you attend meet ings of the clubs or organizations you belong to? Never 07/05/2023 Are you , , di vorced, , never , or living with a partner? 07/05/2023 AUDIT-C Answer Date Recorded Q1: How often do you have a drink containing alcohol? Never 10/16/2024 Q2: How many drinks containi ng alcohol do you have on a typical day when you are drinking? Patient does not drink Q3: How often do you have si x or more drinks on one occasion? Never 10/16/2024 Overall Financial Resource Strain (CARDIA) Answe r Date Recorded How hard is it for you to pa y for the very basics like food, housing, medical care, and heating? Not hard at all 07/05/2023 PHQ-2 Answer Date Recorded PHQ-2 Total Score (If total score is 3 or more points, staff should administer the PHQ-9) 0 05/22/2024 Hunger Vital Sign Answer Date Recorded Within the past 12 months, y ou worried that your food would run out before you got the money to buy more. Never true 07/05/20 23 Within the past 12 months, t he food you bought just didn't last and you didn't have money to get more. Never true 07/05/2023 PRAPARE - Transportation Answer Date Re corded In the past 12 months, has l ack of transportation kept you from medical appointments or from getting medications? No 06/08 In the past 12 months, has l ack of transportation kept you from meetings, work, or from getting things needed for daily living? No 07/05/2023 Housing Stability Vital Sign Answer Harrison e Recorded In the last 12 months, was t here a time when you were not able to pay the mortgage or rent on time? No 07/05/2023 In the last 12 months, how many places have you lived? 1 07/05/2023 In the last 12 months, was t here a time when you did not have a steady place to sleep or slept in a mcfp (including now)? No 07/05/2023 Personal Safety Answer Date Recorded Have you ever been in or are you currently in a harmful physical or emotional relationship or is someone making you feel afraid or unsafe? Denies 10/16/2024 Comments No Sex and Gender Information Value Date Recorded Sex Assigned at Not on file Legal Sex Female 6:09 AM ASSISTANT MANAGER TRAINEE Gender Identity Not on file Sexual Orientation Not on file Last Filed Vital Signs Vital Sign Reading Time Taken Comments Blood Pressure 108/74 11/13/2024 12:49 PM ASSISTANT MANAGER TRAINEE Pulse 65 11/13/2024 12:49 PM ASSISTANT MANAGER TRAINEE Temperature 36.6 C (97.9 F) 10/17/2024 6:00 AM ASSISTANT MANAGER TRAINEE Respiratory Rate 17 10/17/2024 6:00 AM ASSISTANT MANAGER TRAINEE Oxygen Saturation 95% 11/13/2024 12: 49 PM ASSISTANT MANAGER TRAINEE Inhaled Oxygen Concentration - - Weight 78.8 kg (173 lb 12.8 oz) 025 12:49 PM ASSISTANT MANAGER TRAINEE Height 170.2 cm (5' 7 ) 11/13/2024 12:4 9 PM ASSISTANT MANAGER TRAINEE Body Mass Index 27.22 11/13/2024 12:49 PM ASSISTANT MANAGER TRAINEE Plan of Treatment Not on file Medical Devices Implanted Type Area Tank Truck Driver Device Identifier Shelf Expiration Date Model / Serial / Lot [employer] [id number] Device Closure Vascade Od5 Fr Femoral Artery - [id number] Implanted:Qty: 1 on 08/25/2021 by Kevin Sexton MD at [facility] Collagen Left: Groin [employer] 05/21/2023 [id number] -[id number] / / [id number] Description:5fr vascade clos ure device [employer] [id number] System 6-12fr Mvp Venous Closure Vascade - [id number] Implanted:Qty: 1 on 08/25/2021 by Kevin Sexton MD at [facility] Collagen Left: Groin [employer] 04/29/2023 800-612C- 10U / / [id number] [employer] [id number] System 6-12fr Mvp Venous Closure Vascade - [id number] Implanted:Qty: 1 on 08/25/2021 by Kevin Sexton MD at [facility] Collagen Right: Groin [employer] 04/29/2023 800-612C- 10U / / [id number] [id number] [employer] [id number] System 6-12fr Mvp Venous Closure Vascade - [id number] Implanted:Qty: 1 on 08/25/2021 by Kevin Sexton MD at [facility] Collagen Right: Groin [employer] 04/29/2023 800-612C- 10U / / [id number] [id number] [employer] Device Vascular Closure Femoral Artery Bioabsorbable Dual Method Vascade 6-7fr Collagen [id number] - [id number] Implanted:Qty: 1 on 10/16/2024 by Edinson Bridges MD PhD at [facility] Vascular Closure Device [employer] 08/08/2026 [id number]- 05U / / [id number] Description:Vascade [employer] Device Vascular Closure Vascade Mvp Xl 10-12fr Venous Strl 800-1012xl - [id number] Implanted:Qty: 1 on 10/16/2024 by Edinson Bridges MD PhD at [facility] Vascular Closure Device [employer] 07/16/2026 [id number] L / / [id number] Description:Vascade [employer] Device Vascular Closure Vascade Mvp Xl 10-12fr Venous Strl 800-1012xl - [id number] Implanted:Qty: 1 on 10/16/2024 by Edinson Bridges MD PhD at [facility] Vascular Closure Device [employer] 07/16/2026 800-1012X L / / [id number] Description:Vascade Procedures Procedure Name Priority Date/Time Associated Diagnosis Comments MR BODY OUTSIDE CONSULT Routine 12/25/2024 2:00 PM ASSISTANT MANAGER TRAINEE Diagnosis unknown SCAN - RADIOLOGY/IMAGING 12/24/2024 ECG 12-LEAD Routine 11/13/2024 12:47 PM ASSISTANT MANAGER TRAINEE Atrial fibrillation and flutter (HCC) EGFR Routine 10/16/2024 8:15 PM ASSISTANT MANAGER TRAINEE DIFFERENTIAL AUTO Routine 10/16/2024 8:1 5 PM ASSISTANT MANAGER TRAINEE CBC WITH AUTO DIFFERENTIAL Routine 10/16/2024 8:15 PM ASSISTANT MANAGER TRAINEE PHOSPHORUS Routine 10/16/2024 8:15 PM ASSISTANT MANAGER TRAINEE MAGNESIUM Routine 10/16/2024 8:15 PM ASSISTANT MANAGER TRAINEE COMPREHENSIVE METABOLIC PANEL Routine 10/16/2024 8:15 PM ASSISTANT MANAGER TRAINEE POST DRUG PROGRAM STIM AND PACING Routine 10/16/2024 11:52 AM ASSISTANT MANAGER TRAINEE Atypical atrial flutter (CMS/HCC) (HCC) ABLATION SUPRAVENTRICULAR TACHYCARDIA TREATMENT (SVT) Routine 10/16/2024 11:52 AM ASSISTANT MANAGER TRAINEE Atypical atrial flutter (CMS/HCC) (HCC) POCT ACTIVATED CLOTTING TIME, HIGH RANGE Routine 10/16/2024 11:06 AM ASSISTANT MANAGER TRAINEE POCT ACTIVATED CLOTTING TIME, HIGH RANGE Routine 10/16/2024 10:27 AM ASSISTANT MANAGER TRAINEE POCT ACTIVATED CLOTTING TIME, HIGH RANGE Routine 10/16/2024 9:51 AM ASSISTANT MANAGER TRAINEE POCT ACTIVATED CLOTTING TIME, HIGH RANGE Routine 10/16/2024 9:20 AM ASSISTANT MANAGER TRAINEE POCT ACTIVATED CLOTTING TIME, HIGH RANGE Routine 10/16/2024 8:55 AM ASSISTANT MANAGER TRAINEE ND AN PROCEDURE PLACEHOLDER Routine 10/16/2024 8:46 AM ASSISTANT MANAGER TRAINEE ND AN PROCEDURE PLACEHOLDER Routine 10/16/2024 8:42 AM ASSISTANT MANAGER TRAINEE ND AN PROCEDURE PLACEHOLDER Routine 10/16/2024 8:29 AM ASSISTANT MANAGER TRAINEE ND AN ELECTIVE ENDOTRACHEAL AIRWAY Routine 10/16/2024 8:29 AM ASSISTANT MANAGER TRAINEE POC BLOOD GAS AND CHEMISTRIES, ARTERIAL Routine 10/16/2024 6:58 AM ASSISTANT MANAGER TRAINEE TRANSESOPHAGEAL ECHO (LORETA) W DOPPLER/CF WO CONTRAST Routine 10/15/2024 1:29 PM ASSISTANT MANAGER TRAINEE Atypical atrial flutter (CMS/HCC) (HCC) Pre-op testing CT HEART MORPHOLOGY W CONTRAST Schedule Routine, Read Routine (OP Routine) 10/15/2024 11:06 AM ASSISTANT MANAGER TRAINEE Atypical atrial flutter (CMS/HCC) (HCC) POCT CREATININE - DEVICE Routine 10/15/2024 10:00 AM ASSISTANT MANAGER TRAINEE EGFR Routine 10/15/2024 9:03 AM ASSISTANT MANAGER TRAINEE Atypical atrial flutter (CMS/HCC) (HCC) URINALYSIS, MICROSCOPIC ONLY Routine 10/15/2024 9:03 AM ASSISTANT MANAGER TRAINEE Atypical atrial flutter (CMS/HCC) (HCC) URINALYSIS AND REFLEX TO MICROSCOPIC Routine 10/15/2024 9:03 AM ASSISTANT MANAGER TRAINEE Atypical atrial flutter (CMS/HCC) (HCC) CBC WITHOUT DIFFERENTIAL Routine 10/15/2024 9:03 AM ASSISTANT MANAGER TRAINEE Atypical atrial flutter (CMS/HCC) (HCC) BASIC METABOLIC PANEL Routine 10/15/2024 9:03 AM ASSISTANT MANAGER TRAINEE Atypical atrial flutter (CMS/HCC) (HCC) HM MAMMOGRAPHY Routine 02/13/2024 from Last 3 Months or Most Recently Relevant to Health Maintenance Results * MR Body Outside Consult (12/25/2024 2:00 PM ASSISTANT MANAGER TRAINEE) Anatomical Region Laterality Modality Body N/A Magnetic Resonan ce 12/25/2024 2:22 PM ASSISTANT MANAGER TRAINEE Impressions 12/25/2024 2:22 PM ASSISTANT MANAGER TRAINEE Pancreatic cystic lesions likely representing branch-duct IPMN with the largest located in the head measuring 1.7 cm without main duct dilation and/or without worrisome or high-risk features. Terminology: * Dilated main pancreatic duct = > 5 mm in the head and > 4 mm in the neck/body/tail * Wall thickening, septae or mural nodule within cyst = > 2 mm in thickness * Worrisome features = cyst >= 3 cm, MPD >= 7 mm, thick enhancing cyst wall (> 2 mm), and/or non-enhancing mural nodule * High-risk features = enhancing solid component or main pancreatic duct caliber >= 10 mm in the absence of obstruction * IPMN = intraductal papillary mucinous neoplasm The findings, conclusions and recommendations within this report do not replace the initial findings, conclusions and recommendations made at the facility where the study was performed based upon the imaging and clinical condition at that time. Comparison with the prior report and clinical history is necessary. The provided images may or may not represent the resighini source data set and thus may contain changes that may lower the accuracy of this second-opinion interpretation. Dictated by: Antonia López MD The radiology attending physician has personally reviewed this study, and had reviewed and/or edited this written report and agrees with it. Electronically signed by: Jaimie El M.D. Narrative 12/25/2024 2:22 PM ASSISTANT MANAGER TRAINEE EXAMINATION: RADIOLOGY CONSULTATION ON OUTSIDE IMAGING STUDY STUDY INITIALLY PERFORMED: 12/24/2024 at [facility]. TYPE OF STUDY: Multiple MR images of the abdomen with and without contrast are provided at the time of this interpretation. CONTRAST ROUTE: Contrast was administered via the intravenous route. The protocol was adequate to address the clinical question. The outside final report was not available at the time of this second opinion interpretation. TYPE OF CONSULTATION: Consult on outside imaging study with images submitted through Outside Image Sharing Service DATE OF CONSULTATION: 12/25/2024 2:02 PM HISTORY: 74-year-old female with cystic pancreatic lesion, identified on cardiac CT 10/15/2024 COMPARISON: Cardiac CT 10/15/2024 FINDINGS: Liver: No fat or iron deposition. No surface nodularity. - Bile ducts: Nondilated - Focal liver lesions: No focal hepatic lesion. - Vasculature: Portal and hepatic veins patent, splenic vein patent. Abdominal aorta normal in caliber. Gallbladder: Cholelithiasis with prominent stone at the gallbladder neck, unchanged from previous CT. No findings of cholecystitis. Pancreas: Pancreatic parenchyma: normal in morphology and enhancement Peripancreatic soft tissues: normal Main pancreatic duct (MPD): non-dilated MPD wall thickening or mural nodularity: absent Solid pancreatic mass: none Pancreatic cystic lesion(s): - Number of lesions: multiple, largest in the pancreatic head and several smaller scattered lesions throughout the pancreatic neck and body Lesion 1: * Location: head, series 3, image 22 * Size (outer wall to outer wall): 1.7 cm in longest dimension * Morphology: unilocular * Shape: oval * Communication with main pancreatic duct: indeterminate * Wall thickening, septae or mural nodule within cyst: absent Spleen: Normal Adrenals: Normal Kidneys: No hydronephrosis. No focal renal lesion. Other Findings: Lung bases unremarkable. No abdominal lymphadenopathy. Imaged bowel normal caliber. No intratracheal free fluid or free air. No suspicious osseous lesion. Procedure Note Jaimie El MD - 12/25/2024 EXAMINATION: RADIOLOGY CONSULTATION ON OUTSIDE IMAGING STUDY STUDY INITIALLY PERFORMED: 12/24/2024 at [facility]. TYPE OF STUDY: Multiple MR images of the abdomen with and without contrast are provided at the time of this interpretation. CONTRAST ROUTE: Contrast was administered via the intravenous route. The protocol was adequate to address the clinical question. The outside final report was not available at the time of this second opinion interpretation. TYPE OF CONSULTATION: Consult on outside imaging study with images submitted through Outside Image Sharing Service DATE OF CONSULTATION: 12/25/2024 2:02 PM HISTORY: 74-year-old female with cystic pancreatic lesion, identified on cardiac CT 10/15/2024 COMPARISON: Cardiac CT 10/15/2024 FINDINGS: Liver: No fat or iron deposition. No surface nodularity. - Bile ducts: Nondilated - Focal liver lesions: No focal hepatic lesion. - Vasculature: Portal and hepatic veins patent, splenic vein patent. Abdominal aorta normal in caliber. Gallbladder: Cholelithiasis with prominent stone at the gallbladder neck, unchanged from previous CT. No findings of cholecystitis. Pancreas: Pancreatic parenchyma: normal in morphology and enhancement Peripancreatic soft tissues: normal Main pancreatic duct (MPD): non-dilated MPD wall thickening or mural nodularity: absent Solid pancreatic mass: none Pancreatic cystic lesion(s): - Number of lesions: multiple, largest in the pancreatic head and several smaller scattered lesions throughout the pancreatic neck and body Lesion 1: * Location: head, series 3, image 22 * Size (outer wall to outer wall): 1.7 cm in longest dimension * Morphology: unilocular * Shape: oval * Communication with main pancreatic duct: indeterminate * Wall thickening, septae or mural nodule within cyst: absent Spleen: Normal Adrenals: Normal Kidneys: No hydronephrosis. No focal renal lesion. Other Findings: Lung bases unremarkable. No abdominal lymphadenopathy. Imaged bowel normal caliber. No intratracheal free fluid or free air. No suspicious osseous lesion. IMPRESSION: Pancreatic cystic lesions likely representing branch-duct IPMN with the largest located in the head measuring 1.7 cm without main duct dilation and/or without worrisome or high-risk features. Terminology: * Dilated main pancreatic duct = > 5 mm in the head and > 4 mm in the neck/body/tail * Wall thickening, septae or mural nodule within cyst = > 2 mm in thickness * Worrisome features = cyst >= 3 cm, MPD >= 7 mm, thick enhancing cyst wall (> 2 mm), and/or non-enhancing mural nodule * High-risk features = enhancing solid component or main pancreatic duct caliber >= 10 mm in the absence of obstruction * IPMN = intraductal papillary mucinous neoplasm The findings, conclusions and recommendations within this report do not replace the initial findings, conclusions and recommendations made at the facility where the study was performed based upon the imaging and clinical condition at that time. Comparison with the prior report and clinical history is necessary. The provided images may or may not represent the resighini source data set and thus may contain changes that may lower the accuracy of this second-opinion interpretation. Dictated by: Antonia López MD The radiology attending physician has personally reviewed this study, and had reviewed and/or edited this written report and agrees with it. Electronically signed by: Jaimie El M.D. us Emanuel Solano MD IMG MRI PROCEDURES Final R esult * SCAN - RADIOLOGY/IMAGING (12/24/2024) Anatomical Region Laterality Modality Other us Provider Scanning Final Result * ECG 12 lead (11/13/2024 12:47 PM ASSISTANT MANAGER TRAINEE) us Mela Carvalho NP ECG ORDERABLES Edited R esult - Final * eGFR (10/16/2024 8:15 PM ASSISTANT MANAGER TRAINEE) eGFR 69 >=60 mL/min/1. 73 m2 Comment: Interpretive Data Reference Interval Normal >/= 90 mL/min/1.73m2 Mildly decreased* 60 - 89 mL/min/1.73m2 Mildly to moderately decreased 45 - 59 mL/min/1.73m2 Moderately to severely decreased 30 - 44 mL/min/1.73m2 Severely decreased 15 - 29 mL/min/1.73m2 Kidney Failure < 15 mL/min/1.73m2 *Relative to young adult level Estimated glomerular filtration rate is determined by the 2020 CKD-EPI equation recommended by the National Kid[employer] Foundation (A Unifying Approach to GFR Estimation: Recommendations of the NKF-ASK Task Force on Reassessing the Inclusion of Race in Diagnosing Kidney Disease, JASN 2020). The CKD-EPI equation should not be used for patients with unstable renal function and has not been validated in children and those over 70. Current interpretive data was last reviewed 2021. Blood 10/16/2024 8:15 PM ASSISTANT MANAGER TRAINEE 10/16/2024 8:26 PM ASSISTANT MANAGER TRAINEE Shiraz Prakash MD LAB BLOOD ORDERABLES Final Result [facility] [place] [address] * (ABNORMAL) Differential, auto (10/16/2024 8:15 PM ASSISTANT MANAGER TRAINEE) Neutrophil abs 6.2 1.5 - 6.5 K/cumm Imm gran abs 0.0 0.0 - 0.1 K/cumm [facility] Lymphocyte abs 0.7(L) 0.8 - 3.3 K/cumm [facility] Monocyte abs 0.2 0.2 - 0.8 K/cumm [facility] Eosinophil abs 0.0 0.0 - 0.5 K/cumm [facility] Basophil abs 0.0 0.0 - 0.1 K/cumm [facility] Neutrophil pct 87.1 % [facility] Comment: Interpretive Data Percent cell count reference ranges are not reported, since discordance with absolute values may lead to misinterpretation of CBC data. Current Interpretive Data was last revised on 2018. Imm gran pct 0.4 % [facility] Comment: Interpretive Data Percent cell count reference ranges are not reported, since discordance with absolute values may lead to misinterpretation of CBC data. Current Interpretive Data was last revised on 2018. Lymphocyte pct 9.7 % [facility] Comment: Interpretive Data Percent cell count reference ranges are not reported, since discordance with absolute values may lead to misinterpretation of CBC data. Current Interpretive Data was last revised on 2018. Monocyte pct 2.7 % [facility] Comment: Interpretive Data Percent cell count reference ranges are not reported, since discordance with absolute values may lead to misinterpretation of CBC data. Current Interpretive Data was last revised on 2018. Eosinophil pct 0.0 % [facility] Comment: Interpretive Data Percent cell count reference ranges are not reported, since discordance with absolute values may lead to misinterpretation of CBC data. Current Interpretive Data was last revised on 2018. Basophil pct 0.1 % [facility] Comment: Interpretive Data Percent cell count reference ranges are not reported, since discordance with absolute values may lead to misinterpretation of CBC data. Current Interpretive Data was last revised on 2018. Blood 10/16/2024 8:15 PM ASSISTANT MANAGER TRAINEE 10/16/2024 8:26 PM ASSISTANT MANAGER TRAINEE us Shiraz Prakash MD LAB BLOOD ORDERABLES Final Result [facility] [place] [address] * CBC with auto differential (10/16/2024 8:15 PM ASSISTANT MANAGER TRAINEE) WBC 7.1 3.8 - 9.9 K/cumm Hgb 12.9 11.9 - 15.5 g/dL [facility] Hct 39.1 35.6 - 45.5 % [facility] Plt 183 150 - 400 K/cumm [facility] MPV 9.4 9.1 - 12.3 fL [facility] RBC 4.30 3.90 - 5.20 M/cumm [facility] MCV 90.9 81.3 - 96.4 fL [facility] MCH 30.0 27.1 - 33.3 pg [facility] MCHC 33.0 32.3 - 35.7 g/dL [facility] RDW CV 13.2 11.1 - 14.9 % [facility] RDW SD 43.6 35.7 - 48.1 fL [facility] NRBC abs 0.00 0.00 - 0.01 K/cumm [facility] Blood 10/16/2024 8:15 PM ASSISTANT MANAGER TRAINEE 10/16/2024 8:26 PM ASSISTANT MANAGER TRAINEE Shiraz Prakash MD LAB BLOOD ORDERABLES Final Result Performing Organization Address City/[facility] Co de Phone Number [facility] [place] [address] * Phosphorus (10/16/2024 8:15 PM ASSISTANT MANAGER TRAINEE) Pathologist [facility] Phosphorus, pl 3.1 2.3 - 4.5 mg/dL Blood 10/16/2024 8:15 PM ASSISTANT MANAGER TRAINEE 10/16/2024 8:26 PM ASSISTANT MANAGER TRAINEE Shiraz Prakash MD LAB BLOOD ORDERABLES Final Result Performing Organization Address [facility] de Phone Number [facility] [place] [address] * Magnesium (10/16/2024 8:15 PM ASSISTANT MANAGER TRAINEE) [facility] Magnesium 1.9 1.4 - 2.5 mg/dL Blood 10/16/2024 8:15 PM ASSISTANT MANAGER TRAINEE 10/16/2024 8:26 PM ASSISTANT MANAGER TRAINEE Shiraz Prakash MD LAB BLOOD ORDERABLES Final Result Performing Organization Address [facility] Co de Phone Number [facility] [place] [address] * (ABNORMAL) Comprehensive metabolic panel (10/16/2024 8:15 PM ASSISTANT MANAGER TRAINEE) [facility] Sodium 138 135 - 145 mmol/L Potassium, pl 4.2 3.3 - 4.9 mmol/L [facility] Chloride 105 97 - 110 mmol/L [facility] CO2 23 22 - 32 mmol/L [facility] Anion gap 10 2 - 15 mmol/L [facility] BUN 15 6 - 25 mg/dL [facility] Creatinine 0.89 0.60 - 1.10 mg/dL [facility] Glucose 172 70 - 199 mg/dL [facility] Comment: Interpretive Data Fasting glucose >/= 126 mg/dl is diagnostic for diabetes. Fasting is defined as no caloric intake for at least 8 hours. Fasting glucose between 100 mg/dl to 125 mg/dl is diagnostic of prediabetes. In a patient with classic symptoms of hyperglycemia or hyperglycemic crisis, a random glucose >/= 200 mg/dl is diagnostic for diabetes. In the absence of unequivocal hyperglycemia, results should be confirmed by repeat testing. The classification and Diagnosis of Diabetes Diabetes Care 202; 46: S19-S40. Current interpretive data was last revised 2022. Calcium 8.9 8.5 - 10.3 mg/dL [facility] Bilirubin, total 0.6 0.1 - 1.2 mg/dL [facility] Protein, pl 6.4(L) 6.5 - 8.5 g/dL [facility] Albumin 3.4(L) 3.5 - 5.0 g/dL [facility] Alk phos 71 40 - 130 Units/L [facility] ALT 16 7 - 45 Units/L [facility] AST 25 10 - 45 Units/L [facility] Blood 10/16/2024 8:15 PM ASSISTANT MANAGER TRAINEE 10/16/2024 8:26 PM ASSISTANT MANAGER TRAINEE Shiraz Prakash MD LAB BLOOD ORDERABLES Final Result [facility] [place] [address] * ABLATION SUPRAVENTRICULAR TACHYCARDIA TREATMENT (SVT), POST DRUG PROGRAM STIM AND PACING (10/16/2024 11:52 AM ASSISTANT MANAGER TRAINEE) Anatomical Region Laterality Modality X-Ray Angiograph y Narrative 10/16/2024 12:00 PM ASSISTANT MANAGER TRAINEE [facility] [employer] Cardiac Electrophysiology Laboratory [facility] Electrophysiology Procedure Report Catheter Ablation for Atrial Fibrillation and Atypical Flutter Procedure Date: 10/16/2024 Patient Name: Tana Fisher Date of : 1950 Operators: Alli Ellington M.D. Caleb A Canales, MD Rae Mccarthy, MD Indications: Atrial fibrillation; atypical atrial flutter Procedures: Transseptal Catheterization 3-D Electroanatomic Mapping LA/Coronary sinus mapping/pacing Catheter Ablaton for Pulmonary Vein Isolation for treatment of atrial fibrillation Patient History: 74 y.o. woman in whom atrial fibrillation was diagnosed in August 2020 when she presented with dyspnea and was found to have a pulmonary embolism. She has been on Eliquis 5 mg BID since that time. AF recurrence after cardioversions led to PVI cryo ablation on 08/25/21, LORETA was done pre procedure and showed normal ejection fraction. Due to low SBP she was not started on ADRIANO-I or ARB, Metoprolol XL and prn Lasix were continued. Following her ablation, the pt noted that it took her 5 months to fully recover . She was seen in follow up on 02/09/23 and was off of metoprolol at that time. Her energy level and dyspnea on exertion were much improved. She continued to maintain NSR. She was hospitalized at [facility] in 06/2023. Covid positive at that time and in atrial flutter with RVR. Subsequent recurrences of fibrillation and flutter after cardioversion prompts referral for repeat ablation. She declines antiarrhythmic agents for rhythm control. We've discussed the procedure and the risks, benefits, and alternatives. I've answered the patients' questions. She says she understands and wishes to proceed. Start Time: 08:19 Finish Time: 11:25 Location: [facility] Fluoroscopy Time: 9.6 min; 145 mGy Contrast administered: 0 ml. Estimated Blood Loss: 10 ml. Procedure: After informed consent was obtained, the patient was brought to the EP laboratory in a fasting, nonsedated state. Peripheral IV access was established. Prophylactic antibiotics were administered prior to incision. Continuous ECG, blood pressure, and pulse oximetry monitoring were initiated. Cardioversion patch electrodes were placed on the patient's chest and back. A grounding patch was applied to the skin, as were electrocardiogram monitoring electrodes. General anesthesia was provided by the Anesthesia Service. The right and left femoral veins were accessed using the modified Seldinger technique. Sheath and catheters used as follows: RFV: VersCross/Agilis sheath Catheters: HD Grid mapping/TactiFlex SE D-F curve Irrigated Ablation catheter LA/pulmonary veins RFV: 7 Fr sheath Catheter: Inquiry Deflectable Decapolar Coronary sinus LFV: 10Fr sheath Catheter: ViewFlex ExtraICE RA/RV LFV: 7 Fr sheath and Deflectable Decapolar (access lost during exchange 0f transseptal sheath. Hemostasis with manual pressure. Intracardiac echocardiography was performed to guide transseptal puncture and to guide catheter manipulatioin, in addition to monitor for the development of complications. Transseptal catheterization was performed with ICE and fluoroscopy guidance using the Savaree system. Heparin was given in boluses to maintain ACT > 300 seconds throughout the left heart portion of the procedure and during use of the HD Grid catheter. An extensive electroanatomic map of the left atrium, left atrial apppendage, and pulmonary veins was created using the Pick1 mapping system. The location of the esophagus was marked on the electroanatomic map. Radiofrequency energy was used for ablation. For ablation on the posterior wall ablation was 30-35 W for 10 seconds. For other ablation, 35-40 W for 15 seconds was used. Esophageal temperature was monitored continuously during ablation using the Circa temperature probe. Radiofrequency energy was terminated in the event of rise in esophageal temperature. After completion of the procedure, catheters were removed from left heart and then removed altogether. Protamine was administered. Sheaths were removed and hemostasis was achieved with the aid of the Cardiva Vascade system. Findings: The rhythm at the outset was atrial fibrillation. After transseptal access, cardioversion was performed using 300 J with a synchronized shock. 3-D electroanatomic mapping revealed isolation of three of the four pulmonary veins. There was activity in the right inferior pulmonary vein.; Radiofrequency energy application was carried out in order to complete isolation of the right inferior vein antrum. Ablation was required along the posterior and inferior antrum. Further ablation was carried out to isolate the posterior wall. During the posterior wall isolation several abnormal electrogram sites correlated with frequent atrial ectopy. Ablation at these sites eliminated the ectopy. No atrial fibrillation or atrial flutter was inducible after ablation. Complications: There were no complications immediately apparent. Conclusions: Successful pulmonary vein isolation and posterior LA wall isolation for the treatment of atrial fibrillation and aytpical flutter. Follow-up and Recommendations: Bedrest Resume anticoagulation Gastric proton pump inhibition for at least one month I was present during the entire procedure and personally composed and confirmed this report. Alli Ellington M.D. can closing machine operator [facility] in [place] Edinson Bridges MD PhD CV ELECTROPHYSIOLOG Y PROCS Final Result * (ABNORMAL) POC Activated Clotting Time, High Range (10/16/2024 11:06 AM ASSISTANT MANAGER TRAINEE) ACT 337(H) 87 - 138 sec POC Performer [id number] [facility] POC Device Number [id number] [facility] Blood 10/16/2024 11:0 6 AM ASSISTANT MANAGER TRAINEE 10/16/2024 11:06 AM ASSISTANT MANAGER TRAINEE Edinson Bridges MD PhD LAB BLOOD ORDERABLE S Final Result Performing Organization Address [facility] Co de Phone Number [facility] [place] [address] * (ABNORMAL) POC Activated Clotting Time, High Range (10/16/2024 10:27 AM ASSISTANT MANAGER TRAINEE) ACT 370(H) 87 - 138 sec POC Performer [id number] [facility] POC Device Number [id number] [facility] Blood 10/16/2024 10:2 7 AM ASSISTANT MANAGER TRAINEE 10/16/2024 10:27 AM ASSISTANT MANAGER TRAINEE Edinson Bridges MD PhD LAB BLOOD ORDERABLE S Final Result Performing Organization Address [facility] Co de Phone Number [facility] [place] [address] * (ABNORMAL) POC Activated Clotting Time, High Range (10/16/2024 9:51 AM ASSISTANT MANAGER TRAINEE) ACT 368(H) 87 - 138 sec POC Performer [id number] [facility] POC Device Number [id number] [facility] Blood 10/16/2024 9:51 AM ASSISTANT MANAGER TRAINEE 10/16/2024 9:51 AM ASSISTANT MANAGER TRAINEE Edinson Bridges MD PhD LAB BLOOD ORDERABLE S Final Result Performing Organization Address [facility] Co de Phone Number [place] [address] * (ABNORMAL) POC Activated Clotting Time, High Range (10/16/2024 9:20 AM ASSISTANT MANAGER TRAINEE) ACT 315(H) 87 - 138 sec POC Performer [id number] [facility] POC Device Number [id number] [facility] Blood 10/16/2024 9:20 AM ASSISTANT MANAGER TRAINEE 10/16/2024 9:20 AM ASSISTANT MANAGER TRAINEE Edinson Bridges MD PhD LAB BLOOD ORDERABLE S Final Result Performing Organization Address [facility] de Phone Number [facility] [place] [address] * (ABNORMAL) POC Activated Clotting Time, High Range (10/16/2024 8:55 AM ASSISTANT MANAGER TRAINEE) ACT 315(H) 87 - 138 sec POC Performer [id number] [facility] POC Device Number [id number] [facility] Blood 10/16/2024 8:55 AM ASSISTANT MANAGER TRAINEE 10/16/2024 8:55 AM ASSISTANT MANAGER TRAINEE Edinson Bridges MD PhD LAB BLOOD ORDERABLE S Final Result Performing Organization Address [facility] [place] [address] * ND AN PROCEDURE PLACEHOLDER (10/16/2024 8:46 AM ASSISTANT MANAGER TRAINEE) Narrative Jose Preston CRNA - 10/16/2024 8:46 AM ASSISTANT MANAGER TRAINEE Jose Preston CRNA 10/16/2024 8:47 AM Peripheral IV Catheter Patient location: OR End time: 10/16/2024 7:50 AM Staff: Supervising provider: Mika Koo MD Placed by: Anesthesiologist: Mika Koo MD Preprocedure prep: Prep solution: chlorhexadine PPE: gloves PIV line: Laterality: right Site: wrist Catheter size: 16 g Technique: anatomical landmarks Number of attempts: 1 Assessment: Events: patient tolerated procedure well with no complications Additional comments: PLACED UNDER GENERAL ANESTHESIA Result [facility] Mika Koo MD ANESTHESIA ORDERABLES Fi nal Result * ND AN PROCEDURE PLACEHOLDER (10/16/2024 8:42 AM ASSISTANT MANAGER TRAINEE) Jose Schwarz CRNA - 10/16/2024 8:42 AM ASSISTANT MANAGER TRAINEE Jose Preston CRNA 10/16/2024 8:45 AM Arterial Line Patient location: OR End time: 10/16/2024 7:55 AM Indication: continuous blood pressure monitoring and blood sampling needed Staff: Supervising provider: Mika Koo MD Placed by: Anesthesiologist: Mika Koo MD Procedure prep: Prep solution: chlorhexadine/alcohol Arterial line: Catheter size: 20 gauge Catheter type: wire-guided catheter Seldinger technique: yes Laterality: right Site: radial artery Line secured: Tegaderm and tape Results: good waveform and good blood return Number of attempts: 1 Assessment: Events: patient tolerated procedure well with no complications Other: PLACED UNDER GENERAL ANESTHESIA Result [facility] Mika Koo MD ANESTHESIA ORDERABLES Fi nal Result * ND AN ELECTIVE ENDOTRACHEAL AIRWAY, ND AN PROCEDURE PLACEHOLDER (10/16/2024 8:29 AM ASSISTANT MANAGER TRAINEE) Jose Schwarz CRNA - 10/16/2024 8:29 AM ASSISTANT MANAGER TRAINEE Jose Preston CRNA 10/16/2024 8:33 AM Airway Patient location: OR Urgency: elective Indications for airway management: anesthesia Difficult airway: no Staff: Supervising provider: Mika Koo MD Placed by: LOG SORTER: Jose Preston CRNA Emergent airway documentation: Risks and benefits discussed: yes Consent obtained: yes Consent given by: patient Airway prep: Preoxygenated: yes Patient position: sniffing MILS maintained throughout: yes Mask difficulty assessment: 2 - vent by mask + OA or adjuvant Spontaneous ventilation during airway: present Sedation level during airway: GA Final airway details: Final airway type: endotracheal airway Tube type: ETT ETT size: 7.0 mm Cuffed: yes Technique used for successful ETT placement: video laryngoscopy Insertion site: oral Blade type: Ellie Video blade type: Pack Blade size: 3 Cormack-Lehane (direct): grade IIa - partial view of glottis Cormack-Lehane (video): grade IIa - partial view of glottis Initial cuff pressure: 25 cm H2O Cuff inflated with: air Placement verified by: auscultation and CO2 detection Airway secured with: silk tape Number of attempts: 1 Planned trial extubation: yes us Mika Koo MD ANESTHESIA ORDERABLES Fi nal Result * POC Blood Gas and Chemistries, Arterial - (10/16/2024 6:58 AM ASSISTANT MANAGER TRAINEE) K POC 4.1 3.3 - 4.9 mmol/L Comment: Interpretive Data Not all point of care methods assess for hemolysis. Confirm with instrument and retest K+ if not consistent with clinical signs and symptoms. Current Interpretive Data was last revised on 2024. Blood 10/16/2024 6:58 AM ASSISTANT MANAGER TRAINEE 10/16/2024 6:58 AM ASSISTANT MANAGER TRAINEE us Edinson Bridges MD PhD LAB POCT ORDERABLES - DEVICE Final Result [facility] [place] [address] * TRANSESOPHAGEAL ECHO (LORETA) W DOPPLER/CF WO CONTRAST (10/15/2024 1:29 PM ASSISTANT MANAGER TRAINEE) Anatomical Region Laterality Modality Echocardiography 10/15/2024 1:30 PM ASSISTANT MANAGER TRAINEE Narrative 10/15/2024 3:31 PM ASSISTANT MANAGER TRAINEE Patient name: Tana Fisher Date of test: 10/15/2024 Date of : 1950 (F) Hospital #: [id number] Location: [facility] Cardiac Diagnostic Lab Interpreted by: Alma Delia Pepe MD Marine Designer: Yanet Short MD RN: Reason for Test: Atrial flutter Study quality: Technically good Referring Physician: EDINSON BRIDGES MD Contrast Agent: Aortic valve: tricuspid, and is Normal, and the motion Normal Aortic root: dilated Aortic Arch: Normal Ascending Aorta: Normal Descending Aorta: Pulmonic valve: Pulmonary Artery: Pulmonary vein: normal Mitral valve: redundant, motion prolapses minimally, and annulus is moderately calcified Tricuspid valve: normal, Pulmonic valve: Valvular vegetation: none seen, Mass/Thrombinot seen LA Appendage: No thrombus Wall Motion Scoring (1=Normal 2=Hypo 3=Akinetic 4=Dyskin. 5=Aneurysm 0=Not visualized) Short [place]-Gastric:=2 S=2 I=2 P=2 L=2 A=2 Long [place]-Gastric:BP=2 BA=2 MP=2 MA=2 AP=2 AA=2 Chamber Dimensions: RA: increased LA: increased RV: normal LV: dilated LV function: Mild global left ventricular dysfunction. RV function: Normal Pericardium: Normal pericardium withno pericardial effusion. Diastolic function: indeterminate Atrial Septum: Normal Wall Thickness: RV: LV: normal Sedation/Tolerance: Sedation: LORETA performed with intravenous conscious sedation. Meds Admin: Propofol 184 mL Tolerance: Doppler/CF results Aortic Value - Regurgitation: Mild AR Mitral Valve - Regurgitation: Mild-mod MR Aortic Value - Stenosis: no Mitral Valve - Stenosis: no MS Aortic Value - Area: Mitral Value - Area: Aortic Value - Pressure Gradient: Mitral Value - Pressure Gradient: Aortic Value - Pressure Gradient - Peak: Tricuspid: mild TV regurgitation PA Pressure: MV ERO: .27 cm2 Regurg. Volume: 48 mL/beat Regurg. Fraction: 0 % Complication: None Doppler/CF comments Mild AR, Mild-mod MR, no , no MS, mild TV regurgitation, normal PV. LORETA Summary Alma Delia Pepe MD performed the LORETA probe placement. Dilated LV with reduced systolic function (estimated LVEF 45%). Normal RV systolic function. MVP with mild-mod MR. Calcified mitral annuluswith subvalvular calcification. Mild-mod MR. Mild AR. Spontaneous echo contrast seen in BENNIE with no discrete thrombus. No color flow Doppler evidence of PFO or ASD. Aortic root at SoV measures 3.9 cm. No pericardial effusion. Visualized portions of descending thoracic aorta and aortic arch are without significant atheroma. ? 3D Imaging: This study was supervised and interpreted by Alma Delia Pepe MD Confirmed on 10/15/2024 - 15:31:09 by Alma Delia Pepe MD Lard Bleacher: Yanet Short By signing this report, the attending curriculum and instruction director certifies that he or she has personally supervised and interpreted the echocardiogram and has reviewed and or edited and agrees with the written comments contained within the report. Procedure Note Alma Delia Pepe MD - 10/15/2024 Patient name: Tana Fisher Date of test: 10/15/2024 Date of : 1950 ([facility] #: 0 Location: [facility] Cardiac Diagnostic Lab Interpreted by: Alma Delia Pepe MD Marine Designer: Yanet Short MD RN: Reason for Test: Atrial flutter Study quality: Technically good Referring Physician: EDINSON BRIDGES MD Contrast Agent: Aortic valve: tricuspid, and is Normal, and the motion Normal Aortic root: dilated Aortic Arch: Normal Ascending Aorta: Normal Descending Aorta: Pulmonic valve: Pulmonary Artery: Pulmonary vein: normal Mitral valve: redundant, motion prolapses minimally, and annulus is moderately calcified Tricuspid valve: normal, Pulmonic valve: Valvular vegetation: none seen, Mass/Thrombinot seen LA Appendage: No thrombus Wall Motion Scoring (1=Normal 2=Hypo 3=Akinetic 4=Dyskin. 5=Aneurysm 0=Not visualized) Short [place]-Gastric:=2 S=2 I=2 P=2 L=2 A=2 Long [place]-Gastric:BP=2 BA=2 MP=2 MA=2 AP=2 AA=2 Chamber Dimensions: RA: increased LA: increased RV: normal LV: dilated LV function: Mild global left ventricular dysfunction. RV function: Normal Pericardium: Normal pericardium withno pericardial effusion. Diastolic function: indeterminate Atrial Septum: Normal Wall Thickness: RV: LV: normal Sedation/Tolerance: Sedation: LORETA performed with intravenous conscious sedation. Meds Admin: Propofol 184 mL Tolerance: Doppler/CF results Aortic Value - Regurgitation: Mild AR Mitral Valve - Regurgitation: Mild-mod MR Aortic Value - Stenosis: no Mitral Valve - Stenosis: no MS Aortic Value - Area: Mitral Value - Area: Aortic Value - Pressure Gradient: Mitral Value - Pressure Gradient: Aortic Value - Pressure Gradient - Peak: Tricuspid: mild TV regurgitation PA Pressure: MV ERO: .27 cm2 Regurg. Volume: 48 mL/beat Regurg. Fraction: 0 % Complication: None Doppler/CF comments Mild AR, Mild-mod MR, no , no MS, mild TV regurgitation, normal PV. LORETA Summary Alma Delia Pepe MD performed the LORETA probe placement. Dilated LV with reduced systolic function (estimated LVEF 45%). Normal RV systolic function. MVP with mild-mod MR. Calcified mitral annuluswith subvalvular calcification. Mild-mod MR. Mild AR. Spontaneous echo contrast seen in BENNIE with no discrete thrombus. No color flow Doppler evidence of PFO or ASD. Aortic root at SoV measures 3.9 cm. No pericardial effusion. Visualized portions of descending thoracic aorta and aortic arch are without significant atheroma. ? 3D Imaging: This study was supervised and interpreted by Alma Delia Pepe MD Confirmed on 10/15/2024 - 15:31:09 by Alma Delia Pepe MD Lard Bleacher: Yanet Short By signing this report, the attending curriculum and instruction director certifies that he or she has personally supervised and interpreted the echocardiogram and has reviewed and or edited and agrees with the written comments contained within the report. us Edisnon Bridges MD PhD CV ECHO PROCEDURES Final Result * CT Heart Morphology W Contrast (10/15/2024 11:06 AM ASSISTANT MANAGER TRAINEE) Anatomical Region Laterality Modality Chest N/A Computed Tomogra phy 10/15/2024 11:5 1 AM ASSISTANT MANAGER TRAINEE Impressions 10/15/2024 12:12 PM ASSISTANT MANAGER TRAINEE 1. Pulmonary vein anatomy as described above. 2. Partially imaged cystic lesion of the pancreatic head, possibly an intraductal papillary mucinous neoplasm. Further assessment of MRI/MRCP is suggested for further characterization. Dictated by: Noel Phillips M.D. The radiology attending physician has personally reviewed this study, and had reviewed and/or edited this written report and agrees with it. Electronically signed by: James Barnhart M.D. Narrative 10/15/2024 12:12 PM ASSISTANT MANAGER TRAINEE EXAMINATION: 1. Heart CT with contrast. History: Patient with arrhythmia, pre radiofrequency ablation procedure. Technique: Heart CT performed during administration of 95 mL of Optiray 350, intravenously per pulmonary vein protocol. Images were transferred to an independent workstation for additional 3D post-processing. FINDINGS: Pulmonary vein anatomy: There are 2 veins on the left and 3 veins on the right. Right superior pulmonary vein ostial diameter: 28 x 26 mm. There is no evidence of early branching. Right inferior pulmonary vein ostial diameter: 22 x 24 mm. There is no evidence of early branching. Separate drainage of the superior pulmonary segment of the right upper lobe vein ostial diameter (if arising directly from the left atrium): 6 x 8 mm. There is no evidence of early branching. Left superior pulmonary vein ostial diameter: 17 x 17 mm. There is no evidence of early branching. Left inferior pulmonary vein ostial diameter: 24 x 22 mm. There is no evidence of early branching. The left atrial appendage does not contain thrombus Left atrial diameter: 58 mm Esophagus lies immediately posterior to the right superior pulmonary vein. Other findings: Severe mitral annular calcifications. No pericardial effusion. No acute consolidation. Bibasilar subsegmental atelectasis. No suspicious for nodules. No pleural effusions. There is a low-attenuation lesion within the pancreatic head which measures up to 17 mm (series 8, image 160). This was not completely imaged on the prior examinations. Procedure Note James Barnhart MD - 10/15/2024 EXAMINATION: 1. Heart CT with contrast. History: Patient with arrhythmia, pre radiofrequency ablation procedure. Technique: Heart CT performed during administration of 95 mL of Optiray 350, intravenously per pulmonary vein protocol. Images were transferred to an independent workstation for additional 3D post-processing. FINDINGS: Pulmonary vein anatomy: There are 2 veins on the left and 3 veins on the right. Right superior pulmonary vein ostial diameter: 28 x 26 mm. There is no evidence of early branching. Right inferior pulmonary vein ostial diameter: 22 x 24 mm. There is no evidence of early branching. Separate drainage of the superior pulmonary segment of the right upper lobe vein ostial diameter (if arising directly from the left atrium): 6 x 8 mm. There is no evidence of early branching. Left superior pulmonary vein ostial diameter: 17 x 17 mm. There is no evidence of early branching. Left inferior pulmonary vein ostial diameter: 24 x 22 mm. There is no evidence of early branching. The left atrial appendage does not contain thrombus Left atrial diameter: 58 mm Esophagus lies immediately posterior to the right superior pulmonary vein. Other findings: Severe mitral annular calcifications. No pericardial effusion. No acute consolidation. Bibasilar subsegmental atelectasis. No suspicious for nodules. No pleural effusions. There is a low-attenuation lesion within the pancreatic head which measures up to 17 mm (series 8, image 160). This was not completely imaged on the prior examinations. IMPRESSION: 1. Pulmonary vein anatomy as described above. 2. Partially imaged cystic lesion of the pancreatic head, possibly an intraductal papillary mucinous neoplasm. Further assessment of MRI/MRCP is suggested for further characterization. Dictated by: Noel Phillips M.D. The radiology attending physician has personally reviewed this study, and had reviewed and/or edited this written report and agrees with it. Electronically signed by: James Barnhart M.D. Edinson Bridges MD PhD IMG CT PROCEDURES F inal Result * POCT creatinine (10/15/2024 10:00 AM ASSISTANT MANAGER TRAINEE) Creatinine POC 0.9 0.6 - 1.1 mg/dL Blood 10/15/2024 10:0 0 AM ASSISTANT MANAGER TRAINEE 10/15/2024 10:00 AM ASSISTANT MANAGER TRAINEE Edinson Bridges MD PhD LAB POCT ORDERABLES - DEVICE Final Result Performing Organization Address [facility] Co de Phone Number [facility] [place] [address] * eGFR (10/15/2024 9:03 AM ASSISTANT MANAGER TRAINEE) eGFR 70 >=60 mL/min/1. 73 m2 Comment: Interpretive Data Reference Interval Normal >/= 90 mL/min/1.73m2 Mildly decreased* 60 - 89 mL/min/1.73m2 Mildly to moderately decreased 45 - 59 mL/min/1.73m2 Moderately to severely decreased 30 - 44 mL/min/1.73m2 Severely decreased 15 - 29 mL/min/1.73m2 Kidney Failure < 15 mL/min/1.73m2 *Relative to young adult level Estimated glomerular filtration rate is determined by the 2020 CKD-EPI equation recommended by the National Kidney Foundation (A Unifying Approach to GFR Estimation: Recommendations of the NKF-ASK Task Force on Reassessing the Inclusion of Race in Diagnosing Kidney Disease, JASN 2020). The CKD-EPI equation should not be used for patients with unstable renal function and has not been validated in children and those over 70. Current interpretive data was last reviewed 2021. Blood 10/15/2024 9:03 AM ASSISTANT MANAGER TRAINEE 10/15/2024 9:35 AM ASSISTANT MANAGER TRAINEE Edinson Bridges MD PhD LAB BLOOD ORDERABLE S Final Result Performing Organization Address [facility] Co de Phone Number JOSY ANDERSON [facility] [place] [address] * (ABNORMAL) Urinalysis reflex to microscopic (10/15/2024 9:03 AM ASSISTANT MANAGER TRAINEE) Color, ur Straw Yellow Clarity, ur Clear Clear [facility] Specific gravity, ur 1.021 1.003 - 1.030 [facility] pH, urine 6.0 [facility] Comment: Interpretive Data U rine pH is affected by diet, medications, systemic acid-base disturbances, and renal tubular function. pH may affect urinary stone formation. For example, urine pH below 6.0 may help reduce the tendency for calcium phosphate stones and pH greater than 6.0 may reduce the tendency for uric acid stone formation. Source: [facility] Current Interpretive Data was last revised on 2017 Protein, ur ql Trace Negative [facility] Glucose, ur ql Negative Negative [facility] Ketones, ur Negative Negative [facility] Bilirubin, ur Negative Negative [facility] Blood, ur 2+(A) Negative [facility] Urobilinogen, ur <2.0 <2.0 mg/dL [facility] Nitrite, ur Negative Negative [facility] Leukocyte esterase, ur Negative Negative [facility] UA reflex comment Reflex to microscopic UA will be performed. [facility] Urine 10/15/2024 9:03 AM ASSISTANT MANAGER TRAINEE 10/15/2024 9:28 AM ASSISTANT MANAGER TRAINEE Edinson Bridges MD PhD LAB URINE ORDERABLE S Final Result Performing Organization Address City/[facility]/ZIP Co de Phone Number [place] [address] * (ABNORMAL) Urinalysis, microscopic only (10/15/2024 9:03 AM ASSISTANT MANAGER TRAINEE) WBC, ur 0-5 0 - 5 /HPF RBC, ur 6-10(A) 0 - 2 /HPF [facility] Epithelial cells, squamous, ur 1-5 0 - 5 /HPF [facility] Bacteria, ur Trace(A) [facility] Yeast, ur TRACE [facility] Mucous, ur Present(A) [facility] Urine 10/15/2024 9:03 AM ASSISTANT MANAGER TRAINEE 10/15/2024 9:28 AM ASSISTANT MANAGER TRAINEE Edinson Bridges MD PhD LAB URINE ORDERABLE S Final Result Performing Organization Address City/[facility]/ZIP Co de Phone Number [place] [address] * (ABNORMAL) CBC without differential (10/15/2024 9:03 AM ASSISTANT MANAGER TRAINEE) [facility] WBC 7.2 3.8 - 9.9 K/cumm Hgb 15.3 11.9 - 15.5 g/dL [facility] Hct 46.9(H) 35.6 - 45.5 % [facility] Plt 232 150 - 400 K/cumm [facility] MPV 9.1 9.1 - 12.3 fL [facility] RBC 5.07 3.90 - 5.20 M/cumm [facility] MCV 92.5 81.3 - 96.4 fL [facility] MCH 30.2 27.1 - 33.3 pg [facility] MCHC 32.6 32.3 - 35.7 g/dL [facility] RDW CV 13.0 11.1 - 14.9 % [facility] RDW SD 43.8 35.7 - 48.1 fL [facility] NRBC abs 0.00 0.00 - 0.01 K/cumm [facility] Blood 10/15/2024 9:03 AM ASSISTANT MANAGER TRAINEE 10/15/2024 9:29 AM ASSISTANT MANAGER TRAINEE us Edinson Bridges MD PhD LAB BLOOD ORDERABLE S Final Result [facility] [place] [address] * (ABNORMAL) Basic metabolic panel (10/15/2024 9:03 AM ASSISTANT MANAGER TRAINEE) [facility] Sodium 142 135 - 145 mmol/L Potassium, pl 5.0(H) 3.3 - 4.9 mmol/L [facility] Chloride 104 97 - 110 mmol/L [facility] CO2 29 22 - 32 mmol/L [facility] Anion gap 9 2 - 15 mmol/L [facility] BUN 18 6 - 25 mg/dL [facility] Creatinine 0.88 0.60 - 1.10 mg/dL [facility] Glucose 109 70 - 199 mg/dL [facility] Comment: Interpretive Data Fasting glucose >/= 126 mg/dl is diagnostic for diabetes. Fasting is defined as no caloric intake for at least 8 hours. Fasting glucose between 100 mg/dl to 125 mg/dl is diagnostic of prediabetes. In a patient with classic symptoms of hyperglycemia or hyperglycemic crisis, a random glucose >/= 200 mg/dl is diagnostic for diabetes. In the absence of unequivocal hyperglycemia, results should be confirmed by repeat testing. The classification and Diagnosis of Diabetes Diabetes Care 202; 46: S19-S40. Current interpretive data was last revised 2022. Calcium 9.7 8.5 - 10.3 mg/dL [facility] Blood 10/15/2024 9:03 AM ASSISTANT MANAGER TRAINEE 10/15/2024 9:28 AM ASSISTANT MANAGER TRAINEE Edinson Bridges MD PhD LAB BLOOD ORDERABLE S Final Result [facility] [place] [address] * MAMMOGRAPHY (02/13/2024) Mammography Normal Historical Provider HEALTH MAINTENANCE Final Result from Last 3 Months or Most Recently Relevant to Health Maintenance [place] [address] [place] [place] [address] MEDICARE [facility] SUPPLEMENT MADELINE BARRERA [id number] MEDICARE [facility] SUPPLEMENT [employer] MEDICARE [facility] MCR SUPPLEMENT MADELINE BARRERA [id number] FOR LIFE Advance Directives For more information, please contact: [phone] Documents on File Type Date Recorded Patient Forensic Psychiatrist Expl anation ADVANCE DIRECTIVE 07/05/2023 12:51 PM Bhavik r of [employer] * Full Code (Latest Code Status on File) Date Activated Date Inactivated Comments 10/16/2024 4:56 PM 10/17/2024 2:16 PM * Full Code Date Activated Date Inactivated Comments 10/15/2024 2:28 PM 10/16/2024 5:03 AM * Full Code Date Activated Date Inactivated Comments 07/04/2023 5:15 PM 07/06/2023 6:48 PM * Full Code Date Activated Date Inactivated Comments 07/04/2023 5:15 PM 07/04/2023 5:15 PM * Full Code Date Activated Date Inactivated Comments 08/25/2021 5:42 PM 08/26/2021 2:15 PM Care Teams Drier Unloader Relationship Specialty Start Date End Date Estrella Acosta NP [address] [place] [address] PCP - General Family Medicine 07/26/23 Katlin Carnes DANE [address] [facility] [address] [place] [address] Nurse Practitioner Cardiology 07/26/23 Mike Mcpherson MD [address] [facility] [address] [address] Consulting Physician Cardiology 07/26/23 Jaciel Rangel MD [address] [facility] [address] [place] [address] Consulting Physician Urology 07/26/23
--- OUTSIDE RECORDS SUMMARY | 2024-12-29 20:11 | XMS_ITS | Clinical Summary ---
Author Organization [facility] Address [address] [place] [id number] Care Team Providers Care Community Health Consultant Name Role Phone Estrella Acosta NP Primary Care Provider [phone] Katlin Carnes NP Unavailable [phone] Mike Mcpherson MD Unavailable [phone] Jaciel Rangel MD Unavailable [phone] Allergies Active Allergy Reactions Criticality Noted Date Comments Prednisone Rash Medium 05/08/2021 Itching/burning rash Thimerosal Itching,Other (See comments),Redness Low 06/27/2024 Preservative in contact lens cementer-caused redness, itching and burning of eyes Medications Eliquis 5 mg tabletIndications :Atrial fibrillation and flutter (HCC),Chronic HFrEF (heart failure with reduced ejection fraction) (CMS/HCC) (HCC) Take 1 tablet (5 mg total) by [...] 06/15/2024 Assessment & Plan (10/17/2024 1:05 PM URBAN ANTHROPOLOGIST): The patient has prior history of atrial [...] 08/25/2021 Assessment & Plan (10/16/2024 7:22 PM URBAN ANTHROPOLOGIST): Continue with Eliquis 5 mg p.o. b.i.d. [...] HFrEF (heart failure with reduced ejection fraction) ([facility]) 08/25/2021 Assessment & Plan (10/17/2024 1:04 PM URBAN ANTHROPOLOGIST): Follows with [facility]. Recent TTE was remarkable for mildly [...] PM CDT): EF 40% 02/2021. Currently denies trini [place] -continue metoprolol xl 12.5mg BID -lasix 20mg every day PRN Atrial fibrillation and flutter 06/29/2021 Overview (06/29/2021): Added automatically from request for surgery [id number] Assessment & Plan (08/26/2021 12:30 PM CDT): [...] BID -continue PPI x1mo (~10/2021) -telemetry monitoring Encounters Date Type Department Care Team Description 12/25/2024 2:00 PM URBAN ANTHROPOLOGIST - 12/25/2024 11:59 PM URBAN ANTHROPOLOGIST Hospital Encounter [facility] [address] [place] [address] Diagnosis unknown Discharge Disposition: Discharge to home or self care 12/24/2024 Orders Only [facility] Scanning, Provider 11/20/2024 Telephone [facility] Gastroenterology [address] [facility] Advanced Medicine 12th [place] [address] [place] [address] Osmin Rapp 11/13/2024 1:15 PM URBAN ANTHROPOLOGIST Office Visit [facility] Cardiology [facility] Medical Office Building [address] [place] [address] Winter, Mela Laura, LIBRARY SERIALS ASSISTANT Atrial fibrillation and flutter (HCC) (Primary Dx) 10/19/2024 Orders Only [facility] Gastroenterology [address] [facility] Medicine 12th [place] [address] [place] [address] Emanuel Solano MD Pancreatic lesion (Primary Dx) 10/19/2024 Telephone [facility] Gastroenterology [address] [facility] 12th [place] [address] [place] [address] [facility] 10/18/2024 Telephone [facility] Gastroenterology [address] [facility] 12th [place] [address] [place] [address] [facility] 10/17/2024 Orders Only [facility] Cardiology [facility] 8th [place] [address] [place] [address] Edinson Bridges MD PhD Pancreatic lesion (Primary Dx) 10/16/2024 7:34 AM [facility]UST Anesthesia Event [facility] Electrophysiology Lab [address] [place] [phone] Mika Koo MD Gangloff, Tatianna Fagan NP 10/16/2024 7:30 AM RUST - 10/16/2024 11:[address] [facility] Electrophysiology Lab [address] [place] [phone] Edinson Bridges MD PhD ABLATION SUPRAVENTRICULAR TACHYCARDIA (SVT) 54537 10/16/2024 6:07 AM RUST - 10/17/2024 10:[address] [address] Edinson Bridges MD PhD Ervin Smalls MD Mulla, MD Wolf Emerson Sonya Yannie, MD Atrial fibrillation and flutter (HCC) [I48.91, I48.92] (Primary Dx); Atypical atrial flutter (CMS/HCC) (HCC) Discharge Disposition: Discharge to home or self care 10/15/2024 12:55 [address] Event [facility] Heart and Vascular [address] [address] Antonia Hoskins MD 10/15/2024 11:40 AM URBAN ANTHROPOLOGIST - 10/15/2024 11:59 PM URBAN ANTHROPOLOGIST Hospital Encounter [facility] [place] [address] [place] [address] Edinson Bridges MD PhD Antonia Hoskins MD Atypical atrial flutter (CMS/HCC) (HCC); Pre-op testing Discharge Disposition: Discharge to home or self care 10/15/2024 9:06 AM URBAN ANTHROPOLOGIST - 10/15/2024 11:59 PM URBAN ANTHROPOLOGIST Hospital Encounter [facility] [address] [place] [id number] Atypical atrial flutter (CMS/HCC) (HCC) Discharge Disposition: Discharge to home or self care 10/15/2024 7:30 AM URBAN ANTHROPOLOGIST Pre-Admission Testing [facility] Center for Preoperative Assessment and Planning [facility] ([facility]) [address] [place] [phone] Atypical atrial flutter (CMS/HCC) (HCC) 10/12/[address] [facility] Heart [address] [address] Di Lam RN from Last 3 Months Immunizations Immunization Administration Dates Next Due Hep [...] 06/29/2016 ZOSTER LIVE 06/22/2017 ZOSTER Recombinant 05/12/2021,02/26/2021 Surgical History Surgery Date Site/Laterality Comments TONSILLECTOMY Tonsillectomy - (Added by TW Conv) OVARIAN CYST REMOVAL 11/07/2008 - 11/06/2009 Left CATARACT EXTRACTION Jul 2021 ABLATION A-fib, 2020 CARDIOVERSION Medical History Medical History Date Comments Personal history of arthritis Ar thritis - (Added by TW Conv) Personal history of diseases of the blood and blood-forming organs and certain disorders involving the immune mechanism History of anemia - (Added b y TW Conv) Personal history of other di seases of the circulatory system History of mitral valve prol apse - (Added by TW Conv) Pulmonary embolism (HCC) Atrial fibrillation (CMS/HCC) (HCC) 09/03/21 PE (pulmonary thromboembolis m) (CMS/HCC) (HCC) 09/03/21 Heart disease Aug 2020 Heart failure with reduced e jection fraction (CMS/HCC) (HCC) Family History Medical History Relation Name Comments Breast cancer Father Father Breast Cancer - (Added by TW Conv) Cancer Father Father Heart disease Father Father Heart Disease - (Added by TW Conv) Hypertension Father Father Hypertension - (Added by TW Conv) Leukemia Father Father Leukemia - (Add ed by TW Conv) Multiple myeloma Father Father Osteoporosis Father Father Family history of osteoporosis - (Added by TW Conv) Hypertension Father's Sister aunts Anesthesia problems Mother Mother question able hx. Mother did end up on ICU and prolonged intubation for 40 days. Cancer Mother Mother Colon cancer Mother Mother Malignant Neopl asm, Colon - (Added by TW Conv) Diabetes Mother Mother Diabetes type II Mother Mother Type 2 Diab etes Mellitus - (Added by TW Conv) Uterine cancer Mother Mother Uterine Cance r - (Added by TW Conv) Diabetes type II Sister 1 A Hypertension Sister 1 A Diabetes type II Sister 2 Diabetes type II Sister 3 Relation Name Status Comments Father Father Father's Sister aunts Alive Mother Mother Sister 1 A Alive Sister 2 Alive Sister 3 Alive Social History Tobacco Use Types Packs/Day Years [...] often do you attend chur ch or catholic services? Never 07/05/2023 Do you belong to any clubs o r organizations such as hindu groups, unions, fraternal or athletic groups, or [...] place to sleep or slept in a fdc (including now)? No 07/05/2023 Personal Safety Answer Date Recorded Have you ever been in or are you currently in a harmful physical or emotional relationship or is someone making you feel afraid or unsafe? Denies 10/16/2024 Comments No Sex and Gender Information Value Date Recorded Sex Assigned at Not on file Legal Sex Female 6:09 AM URBAN ANTHROPOLOGIST Gender Identity Not on file Sexual Orientation Not on file Obstetrics History Last Filed Vital Signs Vital Sign Reading Time Taken Comments Blood Pressure 108/74 11/13/2024 12:49 PM URBAN ANTHROPOLOGIST Pulse 65 11/13/2024 12:49 PM URBAN ANTHROPOLOGIST Temperature 36.6 C (97.9 F) 10/17/2024 6:00 AM URBAN ANTHROPOLOGIST Respiratory Rate 17 10/17/2024 6:00 AM URBAN ANTHROPOLOGIST Oxygen Saturation 95% 11/13/2024 12: 49 PM URBAN ANTHROPOLOGIST Inhaled Oxygen Concentration - - Weight 78.8 kg (173 lb 12.8 oz) 025 12:49 PM URBAN ANTHROPOLOGIST Height 170.2 cm (5' 7 ) 11/13/2024 12:4 9 PM URBAN ANTHROPOLOGIST Body Mass Index 27.22 11/13/2024 12:49 PM URBAN ANTHROPOLOGIST Plan of Treatment Health Maintenance Due Date Last Done Comments Colon Cancer Screening-Colonoscopy 1950 Hepatitis C Screening 1950 Osteoporosis Screening-Bone Density Scan 1950 Covid-19 Vaccine (2023-12 5 season) 2024 07/23/2023, 08/24/2022, 08/14/2021, Additional history exists Breast Cancer Screening-Mammogram 02/12/2025 02/13/2024, 08/11/2015, 08/06/2013 Depression Screening 05/22/2025 05/22/2024, 07/26/20 23 Well Visit 65+ 05/22/2025 05/22/2024 Fall Risk Assessment 10/17/2025 10/17/2024, 05/22/2024, 2023 DTaP/Tdap/Td Vaccine (2 - Td or Tdap) 06/29/2026 06/29/2016 Hepatitis B Screening Completed 03/13/2018 , 09/14/2017, 08/14/2017 Pneumococcal vaccine 65+ Completed 08/10/2019, 07/2018 Zoster Vaccine Completed 05/12/2021, 02/06, 06/22/2017 Influenza Vaccine Completed 08/21/2024, , 08/03/2021, Additional history exists Medical Devices Implanted Type Area Environmental Studies Program Director Device Identifier Shelf Expiration Date Model / Serial / Lot [employer] [id number] Device Closure Vascade Od5 Fr Femoral Artery - [id number] Implanted:Qty: 1 on 08/25/2021 by Kevin Sexton MD at [facility] Collagen Left: Groin [employer] 05/21/2023 [id number] / / [id number] Description:5fr vascade clos ure device [employer] [id number] System 6-12fr Mvp Venous Closure Vascade - [id number] Implanted:Qty: 1 on 08/25/2021 by Kevin Sexton MD at [facility] Collagen Left: Groin [employer] 04/29/2023 [id number]- [id number] / / [id number] [employer] [id number] System 6-12fr Mvp Venous Closure Vascade - [id number] Implanted:Qty: 1 on 08/25/2021 by Kevin Sexton MD at [facility] Collagen Right: Groin [employer] 04/29/2023 [id number]- 10U / / [id number] 23A [employer] [id number] System 6-12fr Mvp Venous Closure Vascade - [id number] Implanted:Qty: 1 on 08/25/2021 by Kevin Sexton MD at [facility] Collagen Right: Groin [employer] 04/29/2023 [id number]- 10U / / [id number] [id number] [employer] Device Vascular Closure Femoral Artery Bioabsorbable Dual Method Vascade 6-7fr Collagen [id number] - [id number] Implanted:Qty: 1 on 10/16/2024 by Edinson Bridges MD PhD at [facility] Vascular Closure Device [employer] 08/08/2026 [id number]- 05U / / [id number] Description:Vascade [employer] Device Vascular Closure Vascade Mvp Xl 10-12fr Venous Strl 800-1012xl - [id number] Implanted:Qty: 1 on 10/16/2024 by Edinson Bridges MD PhD at [facility] Vascular Closure Device [employer] 07/16/2026 [id number] L / / [id number] Description:Vascade [employer] Device Vascular Closure Vascade Mvp Xl 10-12fr Venous Strl 800-1012xl - [id number] Implanted:Qty: 1 on 10/16/2024 by Edinson Bridges MD PhD at [facility] Vascular Closure Device [employer] 07/16/2026 [id number] L / / [id number] Description:Vascade Procedures Procedure Name Priority Date/Time Associated Diagnosis Comments MR BODY OUTSIDE CONSULT Routine 12/25/2024 2:00 PM URBAN ANTHROPOLOGIST Diagnosis unknown SCAN - RADIOLOGY/IMAGING 12/24/2024 ECG 12-LEAD Routine 11/13/2024 12:47 PM URBAN ANTHROPOLOGIST Atrial fibrillation and flutter (HCC) EGFR Routine 10/16/2024 8:15 PM URBAN ANTHROPOLOGIST DIFFERENTIAL AUTO Routine 10/16/2024 8:1 5 PM URBAN ANTHROPOLOGIST CBC WITH AUTO DIFFERENTIAL Routine 10/16/2024 8:15 PM URBAN ANTHROPOLOGIST PHOSPHORUS Routine 10/16/2024 8:15 PM URBAN ANTHROPOLOGIST MAGNESIUM Routine 10/16/2024 8:15 PM URBAN ANTHROPOLOGIST COMPREHENSIVE METABOLIC PANEL Routine 10/16/2024 8:15 PM URBAN ANTHROPOLOGIST POST DRUG PROGRAM STIM AND PACING Routine 10/16/2024 11:52 AM URBAN ANTHROPOLOGIST Atypical atrial flutter (CMS/HCC) (HCC) ABLATION SUPRAVENTRICULAR TACHYCARDIA TREATMENT (SVT) Routine 10/16/2024 11:52 AM URBAN ANTHROPOLOGIST Atypical atrial flutter (CMS/HCC) (HCC) POCT ACTIVATED CLOTTING TIME, HIGH RANGE Routine 10/16/2024 11:06 AM URBAN ANTHROPOLOGIST POCT ACTIVATED CLOTTING TIME, HIGH RANGE Routine 10/16/2024 10:27 AM URBAN ANTHROPOLOGIST POCT ACTIVATED CLOTTING TIME, HIGH RANGE Routine 10/16/2024 9:51 AM URBAN ANTHROPOLOGIST POCT ACTIVATED CLOTTING TIME, HIGH RANGE Routine 10/16/2024 9:20 AM URBAN ANTHROPOLOGIST POCT ACTIVATED CLOTTING TIME, HIGH RANGE Routine 10/16/2024 8:55 AM URBAN ANTHROPOLOGIST [place] AN PROCEDURE PLACEHOLDER Routine 10/16/2024 8:46 AM URBAN ANTHROPOLOGIST [place] AN PROCEDURE PLACEHOLDER Routine 10/16/2024 8:42 AM URBAN ANTHROPOLOGIST [place] AN PROCEDURE PLACEHOLDER Routine 10/16/2024 8:29 AM URBAN ANTHROPOLOGIST [place] AN ELECTIVE ENDOTRACHEAL AIRWAY Routine 10/16/2024 8:29 AM URBAN ANTHROPOLOGIST POC BLOOD GAS AND CHEMISTRIES, ARTERIAL Routine 10/16/2024 6:58 AM URBAN ANTHROPOLOGIST TRANSESOPHAGEAL ECHO (LORETA) W DOPPLER/CF WO CONTRAST Routine 10/15/2024 1:29 PM URBAN ANTHROPOLOGIST Atypical atrial flutter (CMS/HCC) (HCC) Pre-op testing CT HEART MORPHOLOGY W CONTRAST Schedule Routine, Read Routine (OP Routine) 10/15/2024 11:06 AM URBAN ANTHROPOLOGIST Atypical atrial flutter (CMS/HCC) (HCC) POCT CREATININE - DEVICE Routine 10/15/2024 10:00 AM URBAN ANTHROPOLOGIST EGFR Routine 10/15/2024 9:03 AM URBAN ANTHROPOLOGIST Atypical atrial flutter (CMS/HCC) (HCC) URINALYSIS, MICROSCOPIC ONLY Routine 10/15/2024 9:03 AM URBAN ANTHROPOLOGIST Atypical atrial flutter (CMS/HCC) (HCC) URINALYSIS AND REFLEX TO MICROSCOPIC Routine 10/15/2024 9:03 AM URBAN ANTHROPOLOGIST Atypical atrial flutter (CMS/HCC) (HCC) CBC WITHOUT DIFFERENTIAL Routine 10/15/2024 9:03 AM URBAN ANTHROPOLOGIST Atypical atrial flutter (CMS/HCC) (HCC) BASIC METABOLIC PANEL Routine 10/15/2024 9:03 AM URBAN ANTHROPOLOGIST Atypical atrial flutter (CMS/HCC) (HCC) HM MAMMOGRAPHY Routine 02/13/2024 from Last 3 Months or Most Recently Relevant to Health Maintenance Results * MR Body Outside Consult (12/25/2024 2:00 PM URBAN ANTHROPOLOGIST) Anatomical Region Laterality Modality Body N/A Magnetic Resonan ce 12/25/2024 2:22 PM URBAN ANTHROPOLOGIST Impressions 12/25/2024 2:22 PM URBAN ANTHROPOLOGIST 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 Dictated by: Antonia López MD The radiology attending physician has personally reviewed this study, and had reviewed and/or edited this written report and agrees with it. Electronically signed by: Jaimie El M.D. Narrative 12/25/2024 2:22 PM URBAN ANTHROPOLOGIST EXAMINATION: RADIOLOGY CONSULTATION ON OUTSIDE IMAGING STUDY STUDY INITIALLY PERFORMED: 12/24/2024 at [facility]. TYPE OF STUDY: Multiple MR images of [...] IMAGING STUDY STUDY INITIALLY PERFORMED: 12/24/2024 at [facility]. TYPE OF STUDY: Multiple MR images of [...] images may or may not represent the [place] source data set and thus may contain [...] * ECG 12 lead (11/13/2024 12:47 PM URBAN ANTHROPOLOGIST) us Mela Carvalho LIBRARY SERIALS ASSISTANT ECG ORDERABLES Edited R esult - Final * eGFR (10/16/2024 8:15 PM URBAN ANTHROPOLOGIST) Pathologist [facility] eGFR 69 >=60 mL/min/1. 73 m2 Comment: [...] last reviewed 2021. Blood 10/16/2024 8:15 PM URBAN ANTHROPOLOGIST 10/16/2024 8:26 PM URBAN ANTHROPOLOGIST [facility] Jorje Prakash MD LAB BLOOD ORDERABLES Final Result [facility] [place] [address] * (ABNORMAL) Differential, auto (10/16/2024 8:15 PM URBAN ANTHROPOLOGIST) Pathologist [facility] Neutrophil abs 6.2 1.5 - 6.5 K/cumm Imm gran abs 0.0 0.0 - 0.1 K/cumm [facility] Lymphocyte abs 0.7(L) 0.8 - 3.3 K/cumm [facility] Monocyte abs 0.2 0.2 - 0.8 K/cumm [facility] Eosinophil abs 0.0 0.0 - 0.5 K/cumm [facility] Basophil abs 0.0 0.0 - 0.1 K/cumm [facility] Neutrophil pct 87.1 % [facility] Comment: Interpretive Data Percent cell count reference ranges are not reported, since discordance with absolute values may lead to misinterpretation of CBC data. Current Interpretive Data was last revised on 2018. Imm gran pct 0.4 % [facility] Comment: Interpretive Data Percent cell count reference ranges are not reported, since discordance with absolute values may lead to misinterpretation of CBC data. Current Interpretive Data was last revised on 2018. Lymphocyte pct 9.7 % [facility] Comment: Interpretive Data Percent cell count reference ranges are not reported, since discordance with absolute values may lead to misinterpretation of CBC data. Current Interpretive Data was last revised on 2018. Monocyte pct 2.7 % [facility] Comment: Interpretive Data Percent cell count reference ranges are not reported, since discordance with absolute values may lead to misinterpretation of CBC data. Current Interpretive Data was last revised on 2018. Eosinophil pct 0.0 % [facility] Comment: Interpretive Data Percent cell count reference ranges are not reported, since discordance with absolute values may lead to misinterpretation of CBC data. Current Interpretive Data was last revised on 2018. Basophil pct 0.1 % [facility] Comment: Interpretive Data Percent cell count reference ranges are not reported, since discordance with absolute values may lead to misinterpretation of CBC data. Current Interpretive Data was last revised on 2018. Blood 10/16/2024 8:15 PM URBAN ANTHROPOLOGIST 10/16/2024 8:26 PM URBAN ANTHROPOLOGIST us Shiraz Prakash MD LAB BLOOD ORDERABLES Final Result [facility] [place] [address] * CBC with auto differential (10/16/2024 8:15 PM URBAN ANTHROPOLOGIST) WBC 7.1 3.8 - 9.9 K/cumm Hgb 12.9 11.9 - 15.5 g/dL [facility] Hct 39.1 35.6 - 45.5 % [facility] Plt 183 150 - 400 K/cumm [facility] MPV 9.4 9.1 - 12.3 fL [facility] RBC 4.30 3.90 - 5.20 M/cumm [facility] MCV 90.9 81.3 - 96.4 fL [facility] MCH 30.0 27.1 - 33.3 pg [facility] MCHC 33.0 32.3 - 35.7 g/dL [facility] RDW CV 13.2 11.1 - 14.9 % [facility] RDW SD 43.6 35.7 - 48.1 fL [facility] NRBC abs 0.00 0.00 - 0.01 K/cumm [facility] Blood 10/16/2024 8:15 PM URBAN ANTHROPOLOGIST 10/16/2024 8:26 PM URBAN ANTHROPOLOGIST Shiraz Prakash MD LAB BLOOD ORDERABLES Final Result Performing Organization Address City/[facility]/ZIP Co de Phone Number [facility] Department [place] [address] * Phosphorus (10/16/2024 8:15 PM URBAN ANTHROPOLOGIST) Pathologist [facility] Phosphorus, pl 3.1 2.3 - 4.5 mg/dL Blood 10/16/2024 8:15 PM URBAN ANTHROPOLOGIST 10/16/2024 8:26 PM URBAN ANTHROPOLOGIST Shiraz Prakash MD LAB BLOOD ORDERABLES Final Result [facility] [place] [address] * Magnesium (10/16/2024 8:15 PM URBAN ANTHROPOLOGIST) Magnesium 1.9 1.4 - 2.5 mg/dL Blood 10/16/2024 8:15 PM URBAN ANTHROPOLOGIST 10/16/2024 8:26 PM URBAN ANTHROPOLOGIST Shiraz Prakash MD LAB BLOOD ORDERABLES Final Result [facility] Department [place] [address] * (ABNORMAL) Comprehensive metabolic panel (10/16/2024 8:15 PM URBAN ANTHROPOLOGIST) Sodium 138 135 - 145 mmol/L Potassium, pl 4.2 3.3 - 4.9 mmol/L [facility] Chloride 105 97 - 110 mmol/L [facility] CO2 23 22 - 32 mmol/L [facility] Anion gap 10 2 - 15 mmol/L [facility] BUN 15 6 - 25 mg/dL [facility] Creatinine 0.89 0.60 - 1.10 mg/dL [facility] Glucose 172 70 - 199 mg/dL [facility] Comment: Interpretive Data Fasting glucose >/= [...] classification and Diagnosis of Diabetes Diabetes Care 2021; 46: S19-S40. Current interpretive data was last revised 2022. Calcium 8.9 8.5 - 10.3 mg/dL [facility] Bilirubin, total 0.6 0.1 - 1.2 mg/dL [facility] Protein, pl 6.4(L) 6.5 - 8.5 g/dL [facility] Albumin 3.4(L) 3.5 - 5.0 g/dL [facility] Alk phos 71 40 - 130 Units/L [facility] ALT 16 7 - 45 Units/L [facility] AST 25 10 - 45 Units/L [facility] Blood 10/16/2024 8:15 PM URBAN ANTHROPOLOGIST 10/16/2024 8:26 PM URBAN ANTHROPOLOGIST Shiraz Prakash MD LAB BLOOD ORDERABLES Final Result [facility] Department [place] [address] * ABLATION SUPRAVENTRICULAR TACHYCARDIA TREATMENT (SVT), POST DRUG PROGRAM STIM AND PACING (10/16/2024 11:52 AM URBAN ANTHROPOLOGIST) Anatomical Region Laterality Modality X-Ray Angiograph y Narrative 10/16/2024 12:00 PM URBAN ANTHROPOLOGIST [facility] Cardiac Electrophysiology Laboratory [facility] Electrophysiology Procedure Report Catheter Ablation for Atrial Fibrillation and Atypical Flutter Procedure Date: 10/16/2024 Patient Name: Tana Fisher Date of : 1950 Operators: Alli Ellington M.D. Caleb A Norton, MD Elin Beck, MD Indications: Atrial fibrillation; atypical atrial flutter [...] to maintain NSR. She was hospitalized at [facility] in 06/2023. Covid positive at that time and in atrial flutter with RVR. Subsequent recurrences of fibrillation and flutter after cardioversion prompts referral for repeat ablation. She declines antiarrhythmic agents for rhythm control. We've discussed the procedure and the risks, benefits, and alternatives. I've answered the patients' questions. She says she understands and wishes to proceed. Start Time: 08:19 Finish Time: 11:25 Location: [facility] 7 Fluoroscopy Time: 9.6 min; 145 mGy Contrast [...] with ICE and fluoroscopy guidance using the Blume Distillation system. Heparin was given in boluses to maintain ACT > 300 seconds throughout the left heart portion of the procedure and during use of the HD Grid catheter. An extensive electroanatomic map of the left atrium, left atrial apppendage, and pulmonary veins was created using the NavX mapping system. The location of the esophagus [...] and confirmed this report. Alli Ellington M.D. shipping receiving clerk [facility] in [place] Edinson Bridges MD PhD CV ELECTROPHYSIOLOG Y PROCS Final Result * (ABNORMAL) POC Activated Clotting Time, High Range (10/16/2024 11:06 AM URBAN ANTHROPOLOGIST) ACT 337(H) 87 - 138 sec POC Performer [id number] [facility] POC Device Number [id number] [facility] Blood 10/16/2024 11:0 6 AM URBAN ANTHROPOLOGIST 10/16/2024 11:06 AM URBAN ANTHROPOLOGIST Edinson Bridges MD PhD LAB BLOOD ORDERABLE S Final Result [facility] Department [place] [address] * (ABNORMAL) POC Activated Clotting Time, High Range (10/16/2024 10:27 AM URBAN ANTHROPOLOGIST) ACT 370(H) 87 - 138 sec POC Performer [id number] [facility] POC Device Number [id number] [facility] Blood 10/16/2024 10:2 7 AM URBAN ANTHROPOLOGIST 10/16/2024 10:27 AM URBAN ANTHROPOLOGIST Edinson Bridges MD PhD LAB BLOOD ORDERABLE S Final Result Performing Organization Address [facility] de Phone Number [facility] [place] [address] * (ABNORMAL) POC Activated Clotting Time, High Range (10/16/2024 9:51 AM URBAN ANTHROPOLOGIST) ACT 368(H) 87 - 138 sec POC Performer [id number] [facility] POC Device Number [id number] [facility] Blood 10/16/2024 9:51 AM URBAN ANTHROPOLOGIST 10/16/2024 9:51 AM URBAN ANTHROPOLOGIST Edinson Bridges MD PhD LAB BLOOD ORDERABLE S Final Result Performing Organization Address [facility] de Phone Number [facility] [place] [address] * (ABNORMAL) POC Activated Clotting Time, High Range (10/16/2024 9:20 AM URBAN ANTHROPOLOGIST) ACT 315(H) 87 - 138 sec POC Performer [id number] [facility] POC Device Number [id number] [facility] Blood 10/16/2024 9:20 AM URBAN ANTHROPOLOGIST 10/16/2024 9:20 AM URBAN ANTHROPOLOGIST Edinson Bridges MD PhD LAB BLOOD ORDERABLE S Final Result Performing Organization Address [facility] de Phone Number [place] [address] * (ABNORMAL) POC Activated Clotting Time, High Range (10/16/2024 8:55 AM URBAN ANTHROPOLOGIST) ACT 315(H) 87 - 138 sec POC Performer [id number] [facility] POC Device Number [id number] [facility] Blood 10/16/2024 8:55 AM URBAN ANTHROPOLOGIST 10/16/2024 8:55 AM URBAN ANTHROPOLOGIST us Edinson Bridges MD PhD LAB BLOOD ORDERABLE S Final Result [facility] [place] [address] * [place] AN PROCEDURE PLACEHOLDER (10/16/2024 8:46 AM URBAN ANTHROPOLOGIST) Jose Schwarz BLOOD BANK SPECIALIST - 10/16/2024 8:46 AM URBAN ANTHROPOLOGIST Jose Preston BLOOD BANK SPECIALIST 10/16/2024 8:47 AM Peripheral IV Catheter Patient [...] complications Additional comments: PLACED UNDER GENERAL ANESTHESIA us Mika Koo MD ANESTHESIA ORDERABLES Fi nal Result * [place] AN PROCEDURE PLACEHOLDER (10/16/2024 8:42 AM URBAN ANTHROPOLOGIST) Jose Schwarz BLOOD BANK SPECIALIST - 10/16/2024 8:42 AM URBAN ANTHROPOLOGIST Jose Preston BLOOD BANK SPECIALIST 10/16/2024 8:45 AM Arterial Line Patient location: [...] no complications Other: PLACED UNDER GENERAL ANESTHESIA us Mika Koo MD ANESTHESIA ORDERABLES Fi nal Result * [place] AN ELECTIVE ENDOTRACHEAL AIRWAY, [place] AN PROCEDURE PLACEHOLDER (10/16/2024 8:29 AM URBAN ANTHROPOLOGIST) Narrative Jose Preston CRNA - 10/16/2024 8:29 AM URBAN ANTHROPOLOGIST Jose Preston CRNA 10/16/2024 8:33 AM Airway Patient location: OR Urgency: elective Indications for airway management: anesthesia Difficult airway: no Staff: Supervising provider: Mika Koo MD Placed by: BLOOD BANK SPECIALIST: Jose Preston CRNA Emergent airway documentation: Risks [...] of attempts: 1 Planned trial extubation: yes Mika Koo MD ANESTHESIA ORDERABLES Fi nal Result * POC Blood Gas and Chemistries, Arterial - (10/16/2024 6:58 AM URBAN ANTHROPOLOGIST) K POC 4.1 3.3 - 4.9 mmol/L Comment: Interpretive Data Not all point of care methods assess for hemolysis. Confirm with instrument and retest K+ if not consistent with clinical signs and symptoms. Current Interpretive Data was last revised on 2024. Blood 10/16/2024 6:58 AM URBAN ANTHROPOLOGIST 10/16/2024 6:58 AM URBAN ANTHROPOLOGIST Edinson Bridges MD PhD LAB POCT ORDERABLES - DEVICE Final Result [facility] [place] [address] * TRANSESOPHAGEAL ECHO (LORETA) W DOPPLER/CF WO CONTRAST (10/15/2024 1:29 PM URBAN ANTHROPOLOGIST) Anatomical Region Laterality Modality Echocardiography 10/15/2024 1:30 PM URBAN ANTHROPOLOGIST Narrative 10/15/2024 3:31 PM URBAN ANTHROPOLOGIST Patient name: Tana Fisher Date of test: 10/15/2024 Date of : 1950 (F) Hospital #: [id number] Location: [facility] Cardiac Diagnostic Lab Interpreted by: Alma Delia Pepe MD Cork Pressing Machine Operator: Yanet Short MD RN: Reason for Test: [...] 2=Hypo 3=Akinetic 4=Dyskin. 5=Aneurysm 0=Not visualized) Short [place]-Gastric:=2 S=2 I=2 P=2 L=2 A=2 Long [place]-Gastric:BP=2 BA=2 MP=2 MA=2 AP=2 AA=2 Chamber Dimensions: [...] - 15:31:09 by Alma Delia Pepe MD Pyridine Recovery Operator: Yanet Short By signing this report, the attending machinery mover certifies that he or she has personally supervised and interpreted the echocardiogram and has reviewed and or edited and agrees with the written comments contained within the report. Procedure Note Alma Delia Pepe MD - 10/15/2024 Patient name: Tana Fisher Date of test: 10/15/2024 Date of : 1950 () [facility] #: 0 Location: [facility] Cardiac Diagnostic Lab Interpreted by: Alma Delia Pepe MD Cork Pressing Machine Operator: Yanet Short MD RN: Reason for Test: [...] 2=Hypo 3=Akinetic 4=Dyskin. 5=Aneurysm 0=Not visualized) Short [place]-Gastric:=2 S=2 I=2 P=2 L=2 A=2 Long [place]-Gastric:BP=2 BA=2 MP=2 MA=2 AP=2 AA=2 Chamber Dimensions: [...] - 15:31:09 by Alma Delia Pepe MD Pyridine Recovery Operator: Yanet Short By signing this report, the attending machinery mover certifies that he or she has personally supervised and interpreted the echocardiogram and has reviewed and or edited and agrees with the written comments contained within the report. us Edinson Bridges MD PhD CV ECHO PROCEDURES Final Result * CT Heart Morphology W Contrast (10/15/2024 11:06 AM URBAN ANTHROPOLOGIST) Anatomical Region Laterality Modality Chest N/A Computed Tomogra phy 10/15/2024 11:5 1 AM URBAN ANTHROPOLOGIST Impressions 10/15/2024 12:12 PM URBAN ANTHROPOLOGIST 1. Pulmonary vein anatomy as described above. [...] James Barnhart M.D. Narrative 10/15/2024 12:12 PM URBAN ANTHROPOLOGIST EXAMINATION: 1. Heart CT with contrast. History: [...] imaged on the prior examinations. Procedure Note Short, James Pina MD - 10/15/2024 EXAMINATION: 1. Heart CT [...] Result * POCT creatinine (10/15/2024 10:00 AM URBAN ANTHROPOLOGIST) Creatinine POC 0.9 0.6 - 1.1 mg/dL Blood 10/15/2024 10:0 0 AM URBAN ANTHROPOLOGIST 10/15/2024 10:00 AM URBAN ANTHROPOLOGIST Edinson Bridges MD PhD LAB POCT ORDERABLES - DEVICE Final Result [facility] [place] [address] * eGFR (10/15/2024 9:03 AM URBAN ANTHROPOLOGIST) eGFR 70 >=60 mL/min/1. 73 m2 Comment: [...] of Race in Diagnosing Kidney Disease, JASN 202). The CKD-EPI equation should not be used for patients with unstable renal function and has not been validated in children and those over 70. Current interpretive data was last reviewed 2021. Blood 10/15/2024 9:03 AM URBAN ANTHROPOLOGIST 10/15/2024 9:35 AM URBAN ANTHROPOLOGIST Edinson Bridges MD PhD LAB BLOOD ORDERABLE S Final Result Performing Organization Address [facility] Co de Phone Number [facility] [place] [address] * (ABNORMAL) Urinalysis reflex to microscopic (10/15/2024 9:03 AM URBAN ANTHROPOLOGIST) Color, ur Straw Yellow Clarity, ur Clear Clear [facility] Specific gravity, ur 1.021 1.003 - 1.030 [facility] pH, urine 6.0 [facility] Comment: Interpretive Data U rine pH is affected by diet, medications, systemic acid-base disturbances, and renal tubular function. pH may affect urinary stone formation. For example, urine pH below 6.0 may help reduce the tendency for calcium phosphate stones and pH greater than 6.0 may reduce the tendency for uric acid stone formation. Source: [facility] Current Interpretive Data was last revised on 2017 Protein, ur ql Trace Negative [facility] Glucose, ur ql Negative Negative [facility] Ketones, ur Negative Negative [facility] Bilirubin, ur Negative Negative [facility] Blood, ur 2+(A) Negative [facility] Urobilinogen, ur <2.0 <2.0 mg/dL [facility] Nitrite, ur Negative Negative [facility] Leukocyte esterase, ur Negative Negative [facility] UA reflex comment Reflex to microscopic UA will be performed. [facility] Urine 10/15/2024 9:03 AM URBAN ANTHROPOLOGIST 10/15/2024 9:28 AM URBAN ANTHROPOLOGIST us Edinson Bridges MD PhD LAB URINE ORDERABLE S Final Result Performing Organization Address City/[facility]/ZIP Co de Phone Number [facility] [place] [address] * (ABNORMAL) Urinalysis, microscopic only (10/15/2024 9:03 AM URBAN ANTHROPOLOGIST) WBC, ur 0-5 0 - 5 /HPF RBC, ur 6-10(A) 0 - 2 /HPF [facility] Epithelial cells, squamous, ur 1-5 0 - 5 /HPF [facility] Bacteria, ur Trace(A) [facility] Yeast, ur TRACE [facility] Mucous, ur Present(A) [facility] Urine 10/15/2024 9:03 AM URBAN ANTHROPOLOGIST 10/15/2024 9:28 AM URBAN ANTHROPOLOGIST Edinson Bridges MD PhD LAB URINE ORDERABLE S Final Result [facility] [place] [address] * (ABNORMAL) CBC without differential (10/15/2024 9:03 AM URBAN ANTHROPOLOGIST) WBC 7.2 3.8 - 9.9 K/cumm Hgb 15.3 11.9 - 15.5 g/dL [facility] Hct 46.9(H) 35.6 - 45.5 % [facility] Plt 232 150 - 400 K/cumm [facility] MPV 9.1 9.1 - 12.3 fL [facility] RBC 5.07 3.90 - 5.20 M/cumm [facility] MCV 92.5 81.3 - 96.4 fL [facility] MCH 30.2 27.1 - 33.3 pg [facility] MCHC 32.6 32.3 - 35.7 g/dL [facility] RDW CV 13.0 11.1 - 14.9 % [facility] RDW SD 43.8 35.7 - 48.1 fL [facility] NRBC abs 0.00 0.00 - 0.01 K/cumm [facility] Blood 10/15/2024 9:03 AM URBAN ANTHROPOLOGIST 10/15/2024 9:29 AM URBAN ANTHROPOLOGIST us Edinson Bridges MD PhD LAB BLOOD ORDERABLE S Final Result [facility] [place] [address] * (ABNORMAL) Basic metabolic panel (10/15/2024 9:03 AM URBAN ANTHROPOLOGIST) Sodium 142 135 - 145 mmol/L Potassium, pl 5.0(H) 3.3 - 4.9 mmol/L [facility] Chloride 104 97 - 110 mmol/L [facility] CO2 29 22 - 32 mmol/L [facility] Anion gap 9 2 - 15 mmol/L [facility] BUN 18 6 - 25 mg/dL [facility] Creatinine 0.88 0.60 - 1.10 mg/dL [facility] Glucose 109 70 - 199 mg/dL [facility] Comment: Interpretive Data Fasting glucose >/= [...] 2022. Calcium 9.7 8.5 - 10.3 mg/dL [facility] Blood 10/15/2024 9:03 AM URBAN ANTHROPOLOGIST 10/15/2024 9:28 AM URBAN ANTHROPOLOGIST us Edinson Bridges MD PhD LAB BLOOD ORDERABLE S Final Result Performing Organization Address City/[facility]/ZIP Co de Phone Number [facility] [place] [address] * HM MAMMOGRAPHY (02/13/2024) Mammography Normal us Historical Provider HEALTH MAINTENANCE Final Result from Last 3 Months or Most Recently Relevant to Health [place] [id number] [place] [id number] MEDICARE FOR LIFE FORMERLY [facility] SUPPLEMENT MADELINE [place] [id number] MEDICARE FORMERLY [facility] SUPPLEMENT MADELINE BARRERA [id number] [facility] MEDICARE [facility] MCR SUPPLEMENT [facility] Advance Directives For more information, please contact: [phone] Documents on File Type Date Recorded Patient Crystal Calibrator Expl anation ADVANCE DIRECTIVE 07/05/2023 12:51 PM Bhavik r of Kitchen Steward/Stewardess-Medical * Full Code (Latest Code Status on [...] 5:42 PM 08/26/2021 2:15 PM Care Teams Community Health Consultant Relationship Specialty Start Date End Date Estrella Acosta, DANE [address] [facility] [address] [place] [address] PCP - General Family Medicine 07/26/23 Katlin Carnes NP [address] [facility] [address] [place] [address] Nurse Practitioner Cardiology 07/26/23 Mike Mcpherson MD [address] [facility] [address] [address] Consulting Physician Cardiology 07/26/23 Jaciel Rangel MD [address] [place] [address] Consulting Physician Urology 07/26/23
--- OUTSIDE RECORDS SUMMARY | 2024-12-29 20:11 | XMS_ITS | Encounter Summary ---
Author Organization [facility] Address [address] [facility] [place] [address] Care Team Providers Care Motor Bus Driver Name Role Phone Enma [place] MD Primary Care Provider [phone] Encounter Details Date Type Department Care Team (Late st Contact Info) Description 03/15/2022 Lab Requisition [facility] [address] [place] [address] Bettina Acevedo MD [address] [place], [place] [id number] Illness, unspecified Social History Tobacco Use Types Packs/Day Years Used Date Smoking Tobacco: Never Assessed Sex and Gender Information Value Date Recorded Sex Assigned at Not on file Gender Identity Not on file Sexual Orientation Not on file documented as of this encounter Plan of Treatment Not on file documented as of this encounter Procedures Procedure Name Priority Date/Time Associated Diagnosis Comments PATH CONSULT ON REFERRED CASE Routine 03/15/2022 1:25 PM CDT Illness, unspecified documented in this encounter Results * PATH CONSULT ON REFERRED CASE (03/15/2022 1:25 PM CDT) Final Diagnosis URINE/VOIDED (OSC: [id number]; 03/11/2022): - Atypical urothelial cells 03/16/2022 8:10 AM CDT [facility] Microscopic Description and Comment Rare cell with hyperchromasia, coarse chromatin and elevated N:C ratio. 03/16/2022 8:10 AM CDT [facility] Clinical History HEMATURIA, CYSTOSCOPY NEGATIVE 03/16/2022 8:10 AM CDT [facility] Materials Received One thin prep slide received from [facility] [place] [facility] [id number]. All material will be returned 03/16/2022 8:10 AM CDT [facility] Disclaimer The performance characteristics of all immunohistochemical and indirect immunofluorescence stains (if any) cited in this report were determined by the Histopathology Laboratory of [facility]. Some of these tests were developed by our own laboratory and have not been cleared or approved by the US Food and Drug Administration. The FDA does not require this test to go through premarket FDA review. These tests are used for clinical purposes. They should not be regarded as investigational or for research. This laboratory is certified under the Clinical Laboratory Improvement Amendments (CLIA) as qualified to perform high complexity clinical laboratory testing. This case has been personally reviewed and interpreted by the attending (teaching) pathologist. 03/16/2022 8:10 AM CDT [facility] Case Report Surgical Pathology Report Case: [id number] Authorizing Provider: Bettina Acevedo MD Collected: 03/15/2022 01:25 PM Ordering Location: [facility] Lab Received: 03/15/2022 01:25 PM Pathologist: Taco Bui MD Specimen: Slide Consultation 03/16/2022 8:10 AM CDT [facility] Embedded Images 03/16/2022 8:10 AM CDT [facility] Pathology/Cytolo gy SURGICAL PATHOLOGY CONSULTATION AND REPORT ON REFERRED SLIDES PREPARED ELSEWHERE / Unknown 03/15/2022 1:25 PM CDT 03/15/2022 1:25 PM CDT Bettina Acevedo MD LAB - PATHOLOGY/CYTO LOGY ORDERABLES Performing Organization Address City/State/[facility] Co de Phone Number [facility] [address] [phone] documented in this encounter Visit Diagnoses Diagnosis Illness, unspecified documented in this encounter Care Teams Motor Bus Driver Relationship Specialty Start Date End Date Enma [place] MD [address] [place] [address] PCP - General 04/23/19 documented as of this encounter
--- OUTSIDE RECORDS SUMMARY | 2024-12-29 20:11 | XMS_ITS | Encounter Summary ---
Author Organization [facility] Address [address] [place] [address] Phone Care Team Providers Care Pump Servicer Name Role Phone Estrella Acosta NP Primary Care Provider [phone] Katlin Carnes NP Unavailable [phone] Mike Mcpherson MD Unavailable [phone] Jaciel Rangel MD Unavailable [phone] Encounter Details Date Type Department Care Team (Late st Contact Info) Description 12/24/2024 Orders Only [facility] Scanning, Provider Social History Tobacco Use Types Packs/Day Years Used Date Smoking Tobacco: Never Smokeless Tobacco: Never Social Connection and Isolat ion Panel [NHANES] Answer Date Recorded In a typical week, how many times do you talk on the phone with family, friends, or neighbors? More than three times a week 07/05/2023 How often do you get togethe r with friends or relatives? More than three times a week 07/05/2023 How often do you attend chur ch or faith services? Never 07/05/2023 Do you belong to any clubs o r organizations such as congregation groups, unions, fraternal or athletic groups, or [...] place to sleep or slept in a snf (including now)? No 07/05/2023 Personal Safety Answer Date Recorded Have you ever been in or are you currently in a harmful physical or emotional relationship or is someone making you feel afraid or unsafe? Denies 10/16/2024 Comments No Sex and Gender Information Value Date Recorded Sex Assigned at Not on file Legal Sex Female 6:09 AM BOOK MENDER Gender Identity Not on file Sexual Orientation Not on file documented as of this encounter Plan of Treatment Not on file documented as of this encounter Procedures Procedure Name Priority Date/Time Associated Diagnosis Comments SCAN - RADIOLOGY/IMAGING 12/24/2024 documented in this encounter Results * SCAN - RADIOLOGY/IMAGING (12/24/2024) Anatomical Region Laterality Modality Other Provider Scanning Final Result documented in this encounter Visit Diagnoses Not on filedocumented in this encounter Care Teams Pump Servicer Relationship Specialty Start Date End Date Estrella Acosta NP [address] [facility] [place] [address] [place] [address] PCP - General Family Medicine 07/26/23 Katlin Carnes NP [address] [facility] [place] [address] [place] [address] Nurse Practitioner Cardiology 07/26/23 Mike Mcpherson MD [address] [facility] [address] [address] Consulting Physician Cardiology 07/26/23 Jaciel Rangel MD [address] [place] [address] Consulting Physician Urology 07/26/23 documented as of this encounter
--- OUTSIDE RECORDS SUMMARY | 2024-12-29 20:11 | XMS_ITS | Referral Summary ---
Author Organization [facility] Address [address] [facility] [place] [address] Care Team Providers Care Looping Inspector Name Role Phone Enma [place] MD Primary Care Provider [phone] Source Comments [facility],non-owned Affiliates and Associated Physician Practices is amultiple site organization consisting of ambulatory clinics and hospital sitesin [place], [place], [place] and [place]. This disclosure is being madepursuant to the Care Everywhere program and may not contain all information available regarding this patient. Last updated 18.[facility] Social History Tobacco Use Types Packs/Day Years Used Date Smoking Tobacco: Never Assessed Sex and Gender Information Value Date Recorded Sex Assigned at Not on file Gender Identity Not on file Sexual Orientation Not on file Plan of Treatment Not on file Care Teams Looping Inspector Relationship Specialty Start Date End Date Enma [place] MD [address] [place], [place] [id number] PCP - General 04/23/19
--- OUTSIDE RECORDS SUMMARY | 2024-12-29 20:11 | XMS_ITS | Patient Health Summary ---
Author Organization [facility] Address [address] [place] [address] Care Team Providers Care Crepe Maker Name Role Phone Enma [place] MD Primary Care Provider [phone] Note from [facility],non-owned Affiliates and Associated Physician Practices is amultiple site organization consisting of ambulatory clinics and hospital sitesin [place], [place], [place] and [place]. This disclosure is being madepursuant to the Care Everywhere program and may not contain all information available regarding this patient. Last updated 18.[facility] Social History Tobacco Use Types Packs/Day Years Used Date Smoking Tobacco: Never Assessed Sex and Gender Information Value Date Recorded Sex Assigned at Not on file Gender Identity Not on file Sexual Orientation Not on file Procedures * PATH CONSULT ON REFERRED CASE(Performed 03/15/2022) Performed for Illness, unspecified Results * PATH CONSULT ON REFERRED CASE (03/15/2022 1:25 PM CDT) Final Diagnosis URINE/VOIDED (OSC: [id number]; 03/11/2022): - Atypical urothelial cells 03/16/2022 8:10 AM [facility] Microscopic Description and Comment Rare cell with hyperchromasia, coarse chromatin and elevated N:C ratio. 03/16/2022 8:10 AM CDT [facility] Clinical History HEMATURIA, CYSTOSCOPY NEGATIVE 03/16/2022 8:10 AM CDT [facility] Materials Received One thin prep slide received from [facility] [place] [facility] [id number]. All material will be returned 03/16/2022 8:10 AM CDT [facility] Disclaimer The performance characteristics of all immunohistochemical and indirect immunofluorescence stains (if any) cited in this report were determined by the Histopathology Laboratory of [facility]. Some of these tests were developed by [...] attending (teaching) pathologist. 03/16/2022 8:10 AM CDT [facility] Case Report Surgical Pathology Report Case: [id number] Authorizing Provider: Bettina Acevedo MD Collected: 03/15/2022 01:25 PM Ordering Location: [facility] Pathology Lab Received: 03/15/2022 01:25 PM Pathologist: Taco Bui MD Specimen: Slide Consultation 03/16/2022 8:10 AM CDT [facility] Embedded Images 03/16/2022 8:10 AM CDT [facility] Pathology/Cytolo gy SURGICAL PATHOLOGY CONSULTATION AND REPORT ON REFERRED SLIDES PREPARED ELSEWHERE / Unknown 03/15/2022 1:25 PM CDT 03/15/2022 1:25 PM CDT Bettina Acevedo MD LAB - PATHOLOGY/CYTO LOGY ORDERABLES [facility] [address] [phone] Care Teams Crepe Maker Relationship Specialty Start Date End Date Enma [place] MD [address] [place] [address] PCP - General 04/23/19
--- OUTSIDE RECORDS SUMMARY | 2024-12-29 20:11 | XMS_ITS | Clinical Summary ---
Author Organization [facility] Address [address] [place] [address] Care Team Providers Care Stain Wiper Name Role Phone Enma Hamlin MD Primary Care Provider [phone] Source Comments [facility],non-owned Affiliates and Associated Physician Practices is amultiple site organization consisting of ambulatory clinics and hospital sitesin [place], [place], [place] and [place]. This disclosure is being madepursuant to the Care Everywhere program and may not contain all information available regarding this patient. Last updated 18.[facility] Social History Tobacco Use Types Packs/Day Years Used Date Smoking Tobacco: Never Assessed Sex and Gender Information Value Date Recorded Sex Assigned at Not on file Gender Identity Not on file Sexual Orientation Not on file Plan of Treatment Health Maintenance Due Date Last Done Comments BONE DENSITY TESTING 1950 COLOGUARD (AGES 45-75) - COL ON CA SCREENING 1952 COLON MONITORING 1952 COLONOSCOPY - COLON CA SCREENING 1952 CT COLONOGRAPHY - COLON CA SCREENING 1952 Colorectal Cancer Screening 1952 FIT - COLON CA SCREENING 1952 FLEX SIG - COLON CA SCREENING 1952 LIPID TESTING 1952 MAMMOGRAM 1952 MEDICARE AWV 12 MONTHS 1952 HEPATITIS C SCREENING 07/22/1970 DTAP/TDAP/TD VACCINES (1 - Tdap) 1971 PNEUMOCOCCAL VACCINE 50+ (1 of 1 - PCV) 2002 ZOSTER VACCINE (1 of 2) 2002 COVID-19 VACCINE ( - 2023-2 5 season) 2024 INFLUENZA VACCINE (#1) 2024 DEPRESSION SCREENING 11/07/2024 Respiratory Syncytial Virus (RSV) Vaccine Pt: or over 60 yrs (1 - 1-dose 75+ series) 2027 HEPATITIS B VACCINE Aged Out No longe r eligible based on patient's age to complete this topic HIB VACCINE Aged Out No longer eligi ble based on patient's age to complete this topic HPV VACCINE Aged Out No longer eligi ble based on patient's age to complete this topic MENINGOCOCCAL (Group B) VACCINE Aged Out No longer eligible based on patient's age to complete this topic MENINGOCOCCAL VACCINE Aged Out No corey gwen eligible based on patient's age to complete this topic Care Teams Stain Wiper Relationship Specialty Start Date End Date Enma Hamlin MD [address] [place], [place] [id number] PCP - General 04/23/19
== END 2024-12-30 07:07 | disposition home or self-care (01) ==
PROVIDERS: PCP Nurse Practitioner Family; Visit Provider Internal Medicine Critical Care Medicine
DX: G47.9 Sleep disorder, unspecified (principal); I50.810 Right heart failure, unspecified
CPT/HCPCS: 95810

== ENCOUNTER 2025-02-18 08:08 | Outpatient (CLI) | payer MEDICARE, OTHER, SELFPAY ==
--- OUTSIDE RECORDS SUMMARY | 2025-02-18 08:18 | XMS_ITS | Encounter Summary ---
Author Organization [facility] Address [address] [place] [address] Phone Care Team Providers Care Prop Worker Name Role Phone Enma Hamlin MD Primary Care Provider [phone] No, Physician Primary Care Provider Estrella Acosta EMPLOYMENT OFFICER Primary Care Provider [phone] Katlin Carnes EMPLOYMENT OFFICER Unavailable [phone] Mike Mcpherson MD Unavailable [phone] Jaciel Rangel MD Unavailable [phone] Encounter Details Date Type Department Care Team (Late st Contact Info) Description 08/01/2020 Orders Only [facility] Scanning, Provider Social History Tobacco Use Types Packs/Day Years Used Date Smoking Tobacco: Never Comments Unknown Sex and Gender Information Value Date Recorded Sex Assigned at Not on file Legal Sex Female 6:09 AM WEB DEVELOPMENT CONSULTANT Gender Identity Not on file Sexual Orientation Not on file documented as of this encounter Plan of Treatment Not on file documented as of this encounter Procedures Procedure Name Priority Date/Time Associated Diagnosis Comments SCAN - RADIOLOGY/IMAGING 08/01/2020 documented in this encounter Results * SCAN - RADIOLOGY/IMAGING (08/01/2020) Anatomical Region Laterality Modality Other us Provider Scanning Final Result documented in this encounter Visit Diagnoses Not on filedocumented in this encounter Additional Health Concerns Infection Onset Date Last Indicated Resolved Time COVID: Suspected 07/01/2023 07/01/2023 07/01/2023 9:12 PM CDT COVID19 07/01/2023 07/04/2023 07/16/2023 3:05 AM CDT Coronavirus, contact + droplet 07/04/2023 07/04/2023 07/11/2023 3:05 AM CDT COVID: Suspected 07/04/2023 07/04/2023 07/04/2023 12:28 PM CDT COVID: Recovered Comment:Added based on recent COVID infection. 07/16/2023 07/20/2023 10/14/2023 3:[address] documented as of this encounter Care Teams Prop Worker Relationship Specialty Start Date End Date Enma Hamlin MD PCP - General Family Medicine 04/14/21 05/07/21 No, Physician PCP - General 05/08/21 07/25/23 Estrella Acosta, DANE [address] [place], [place] [id number] PCP - General Family Medicine 07/26/23 Katlin Carnes, DANE [address] [place] [address] Nurse Practitioner Cardiology 07/26/23 Mike Mcpherson MD [address] [facility] [address] [address] Consulting Physician Cardiology 07/26/23 Jaciel Rangel MD [address] [place] [address] Consulting Physician Urology 07/26/23 documented as of this encounter
--- OUTSIDE RECORDS SUMMARY | 2025-02-18 08:18 | XMS_ITS | Referral Summary ---
Author Organization [facility] Address [address] [place] [address] Care Team Providers Care Grants Director Name Role Phone Estrella Acosta NP Primary Care Provider Katlin Carnes NP Unavailable Mike Mcpherson MD Unavailable [phone] Jaciel Rangel MD Unavailable [phone] Encounters Date Type Department Care Team Description 02/08/2025 Orders Only [facility] Primary Care at [address] [address] Chrissy Guerra MD 01/30/2025 3:00 PM CDT Lab [facility] [address] [place] [id number] PVC's (premature ventricular contractions); Chronic HFrEF (heart failure with reduced ejection fraction) ([facility]) 01/30/2025 2:30 PM CDT Ancillary Procedure [facility] [address] [place] [address] [address] [place] OLAY[place]A FRIEDMAN [phone] PVC's (premature ventricular contractions) 01/30/2025 Results Follow-Up [facility] Cardiology [address] [place] [address] Office Building [address] [place] [phone] Katlin Carnes NP 01/30/2025 1:30 PM CDT Office Visit [facility] Cardiology [address] Medical Office Building [address] [place] [address] Katlin Carnes NP Atrial fibrillation and flutter (HCC) (Primary Dx); PVC's (premature ventricular contractions); Chronic HFrEF (heart failure with reduced ejection fraction) (HCC); Atypical atrial flutter (HCC) 01/17/[address] [facility] Gastroenterology formerly [facility] Advanced Medicine 12th [place] [address] [place] [phone] Osmin Rapp 01/01/2025 11:00 AM FORENSICS ANALYST Office Visit [facility]enter[facility] [address] [facility] Office Building [address], [address] [place] [phone] Emanuel Solano MD Pancreatic cyst (Primary Dx); Pancreatic lesion; History of colon polyps 12/29/2024 Orders Only [facility] Scanning, Provider 12/25/2024 2:00 PM FORENSICS ANALYST - 12/25/2024 11:59 PM FORENSICS ANALYST Hospital Encounter [facility] [address] [place] [id number] Diagnosis unknown Discharge Disposition: Discharge to home or self care 12/24/2024 Orders Only [facility] Scanning, Provider 11/20/[address] [facility] [address] [facility] 12th [place] [address] [place] [address] Osmin Rapp from Last 3 Months Allergies Active Allergy Reactions Criticality Noted Date Comments Prednisone Rash Medium 05/08/2021 Itching/burning rash Thimerosal Itching,Other (See comments),Redness Low 06/27/2024 Preservative in contact lens cutter-caused redness, itching and burning of eyes Medications imiquimod (ALDARA) 5 % cream Apply 1 packet topically as needed (wart) 4 Active acetaminophen (TYLENOL) 500 mg tablet Take 1 tablet (500 mg total) by mouth every 6 (six) hours as needed for pain Active metoprolol XL (TOPROL-XL) 25 mg extended release tablet Take 0.5 tablets (12.5 mg total) by mouth daily 15 tablet 4 Active Eliquis 5 mg tabletIndication s:Atrial fibrillation and flutter (HCC),Chronic HFrEF (heart failure with reduced ejection fraction) (HCC) Take 1 tablet (5 mg total) by mouth 2 (two) times a day 180 tablet 3 5 Active Eliquis 5 mg tabletIndication s:Atrial fibrillation and flutter (HCC),Chronic HFrEF (heart failure with reduced ejection fraction) (HCC) Take 1 tablet (5 mg total) by mouth 2 (two) times a day 180 tablet 3 4 01/31/20 25 Discontin ued(Reord er) Active Problems Problem Noted Date Diagnosed Date Pancreatic cyst 01/01/2025 Atypical atrial flutter 10/16/2024 Atrial flutter 06/15/2024 Assessment & Plan (10/17/2024 1:05 PM FORENSICS ANALYST): The patient has prior history of atrial [...] pain 07/21/2023 Nonrheumatic mitral valve regurgitation 07/21/20 Mitral valve prolapse 07/21/2023 Mixed hyperlipidemia 07/21/2023 [...] 08/25/2021 Assessment & Plan (10/16/2024 7:22 PM FORENSICS ANALYST): Continue with Eliquis 5 mg p.o. b.i.d. [...] HFrEF (heart failure with reduced ejection fraction) 08/25/2021 Assessment & Plan (10/17/2024 1:04 PM FORENSICS ANALYST): Follows with [facility]. Recent TTE was remarkable for mildly [...] (06/29/2021): Added automatically from request for surgery [id number] Assessment & Plan (08/26/2021 12:30 PM CDT): [...] Influenza, Unspecified 08/21/2024,2022(Deferred: Patient Refused),11/07/2022(Deferred: Patient Refused) [employer] SARS-CoV-2 Monovalent Vaccination (12+ Yrs) PURPLE 08/24/2022 [...] week 07/05/2023 How often do you attend [facility] or baptism services? Never 07/05/2023 Do you belong to any clubs o r organizations such as mandaen groups, unions, fraternal or athletic groups, or school groups? No 07/05/2023 How often do you attend meet ings of the clubs or organizations you belong to? Never 07/05/2023 Are you , , di vorced, , never , or living with a partner? 07/05/2023 AUDIT-C Answer Date Recorded Q1: How often do you have a drink containing alcohol? Never 01/01/2025 Q2: How many drinks containi ng alcohol do you have on a typical day when you are drinking? Patient does not drink Q3: How often do you have si x or more drinks on one occasion? Never 01/01/2025 Overall Financial Resource Strain (CARDIA) Answe r [...] place to sleep or slept in a group home (including now)? No 07/05/2023 Personal Safety Answer Date Recorded Have you ever been in or are you currently in a harmful physical or emotional relationship or is someone making you feel afraid or unsafe? Denies 10/16/2024 Comments No Sex and Gender Information Value Date Recorded Sex Assigned at Not on file Legal Sex Female 6:09 AM FORENSICS ANALYST Gender Identity Not on file Sexual Orientation Not on file Last Filed Vital Signs Vital Sign Reading Time Taken Comments Blood Pressure 124/72 01/30/2025 1:10 PM CDT Pulse 57 01/30/2025 1:10 PM CDT Temperature 36.6 C (97.9 F) 10/17/2024 6:00 AM FORENSICS ANALYST Respiratory Rate 17 10/17/2024 6:00 AM FORENSICS ANALYST Oxygen Saturation 97% 01/30/2025 1:10 PM CDT Inhaled Oxygen Concentration - - Weight 80.3 kg (177 lb) 01/30/2025 1:10 PM CDT Height 170.2 cm (5' 7 ) 01/30/2025 1:10 PM CDT Body Mass Index 27.72 01/30/2025 1:10 PM CDT Plan of Treatment Not on file Medical Devices Implanted Type Area Hospice Plan Administrator Device Identifier Shelf Expiration Date Model / Serial / Lot [employer] [id number] Device Closure Vascade Od5 Fr Femoral Artery - [id number] Implanted:Qty: 1 on 08/25/2021 by Kevin Sexton MD at [facility] Collagen Left: Groin [employer] 05/21/2023 [id number] / / [id number] Description:5fr vascade clos ure device [employer] [id number] System 6-12fr Mvp Venous Closure Vascade - [id number] Implanted:Qty: 1 on 08/25/2021 by Kevin Sexton MD at [facility] Collagen Left: Groin [employer] 04/29/2023 800-612C- 10U / / [id number] 23A [employer] [id number] System 6-12fr Mvp Venous Closure Vascade - [id number] Implanted:Qty: 1 on 08/25/2021 by Kevin Sexton MD at [facility] Collagen Right: Groin [employer] 04/29/2023 800-612C- 10U / / [id number] 23A [employer] [id number] System 6-12fr Mvp Venous Closure Vascade - [id number] Implanted:Qty: 1 on 08/25/2021 by Kevin Sexton MD at [facility] Collagen Right: Groin [employer] 04/29/2023 800-612C- 10U / / [id number] 23A [employer] Device Vascular Closure Femoral Artery Bioabsorbable Dual Method Vascade 6-7fr Collagen [id number] - [id number] Implanted:Qty: 1 on 10/16/2024 by Edinson Bridges MD PhD at [facility] Vascular Closure Device [employer] 08/08/2026 [id number]- 05U / / [id number] Description:Vascade [employer] Device Vascular Closure Vascade Mvp Xl 10-12fr Venous Strl 800-1012xl - [id number] Implanted:Qty: 1 on 10/16/2024 by Edinson Bridges MD PhD at [facility] Vascular Closure Device [employer] 07/16/2026 [id number] L / / [id number] Description:Vascade [employer] Device Vascular Closure Vascade Mvp Xl 10-12fr Venous Strl 800-1012xl - [id number] Implanted:Qty: 1 on 10/16/2024 by Edinson Bridges MD PhD at [facility] Vascular Closure Device [employer] 07/16/2026 [id number] L / / [id number] Description:Vascade Procedures Procedure Name Priority Date/Time Associated Diagnosis Comments EGFR Routine 01/30/2025 2:26 PM CDT PVC's (premature ventricular contractions) Chronic HFrEF (heart failure with reduced ejection fraction) (HCC) MAGNESIUM Routine 01/30/2025 2:26 PM CDT PVC's (premature ventricular contractions) COMPREHENSIVE METABOLIC PANEL Routine 01/30/2025 2:26 PM CDT PVC's (premature ventricular contractions) Chronic HFrEF (heart failure with reduced ejection fraction) (HCC) PRO B-TYPE NATRIURETIC PEPTIDE Routine 01/30/2025 2:26 PM CDT PVC's (premature ventricular contractions) EXTENDED/SENIOR LIVING HOLTER PATCH (>48 HOURS UP TO 7 DAYS) Routine 01/30/2025 2:24 PM CDT PVC's (premature ventricular contractions) ECG 12-LEAD Routine 01/30/2025 1:13 PM CDT Atrial fibrillation and flutter (HCC) SLEEP STUDY Routine 12/29/2024 3:30 PM FORENSICS ANALYST SLEEP LAB/STUDY - RESULT 12/29/2024 MR BODY OUTSIDE CONSULT Routine 12/25/2024 2:00 PM FORENSICS ANALYST Diagnosis unknown SCAN - RADIOLOGY/IMAGING 12/24/2024 HM MAMMOGRAPHY Routine 02/13/2024 from Last 3 Months or Most Recently Relevant to Health Maintenance Results * eGFR (01/30/2025 2:26 PM CDT) eGFR 85 >=60 mL/min/1. 73 m2 Comment: Interpretive Data [...] interpretive data was last reviewed 2021. Blood 01/30/2025 2:26 PM CDT 01/30/2025 3:32 PM CDT us Katlin Carnes NP LAB BLOOD ORDERABLES Fin al Result [facility] [address] [facility]. Department of [place] [address] * (ABNORMAL) Pro B-type natriuretic peptide (01/30/2025 2:26 PM CDT) NT-proBNP 1,010(H) <=300 pg/mL Comment: Interpretive Comments: A. Dyspnea in Acute Care Setting All Ages: < 300 pg/ml, acute heart failure unlikely. < 50 yrs: 300 - 450 pg/ml, further investigation warranted. > 450 pg/ml, acute heart failure likely. 50 - 74 yrs: 300 - 900 pg/ml, further investigation warranted. > 900 pg/ml, acute heart failure likely . > or = 75 yrs: 450 - 1800 pg/ml, further investigation warranted. > 1800 pg/ml, acute heart failure likely. B. Non-acute Setting < 75 yrs < 125 pg/ml, rules out heart failure. > or = 125 pg/ml, further investigation warranted. > or = 75 yrs < 450 pg/ml, rules out heart failure. > or = 450 pg/ml, further investigation warranted. - Knowledge of each individual patient's NT-proBNP range may be more useful than using similar cut-points for every patient. Please note that marked elevations in NT-proBNP levels may be observed in state other than Left Ventricular Congestive Failure, including: acute coronary syndromes, right heart strain/failure (including pulmonary embolism and cor pulmonale), critical illness, renal failure, as well as advanced age. - References: 1. Jennifer SUAREZ et.al. Eur Heart J. 2006:27:330-337. 2. Harjit RW, Rabia AM. J. AM Lana Cardiol: Cardiovasc Imag. 2009;2: 216- 225. Interpretive Data Last Revised Date: 2018. Blood 01/30/2025 2:26 PM CDT 01/30/2025 3:32 PM CDT us Katlin Carnes NP LAB BLOOD ORDERABLES Fin al Result [facility] [address] [facility]. Department of [place] [address] * Magnesium (01/30/2025 2:26 PM CDT) Magnesium 2.0 1.4 - 2.5 mg/dL Comment: Reference Data. Reference values for Labor and Delivery patients: < or = 0.7 mg/dL to > or = 7.3 mg/dL Current reference data last reviewd on 08/06/2015. Blood 01/30/2025 2:26 PM CDT 01/30/2025 3:32 PM CDT Katlin Carnes HOME INSPECTOR LAB BLOOD ORDERABLES Fin al Result [facility] [address] [facility]. Department of [place] [address] * Comprehensive metabolic panel (01/30/2025 2:26 PM CDT) Sodium 137 135 - 145 mmol/L Potassium, pl 4.4 3.3 - 4.9 mmol/L [facility] Chloride 99 97 - 110 mmol/L [facility] CO2 28 22 - 32 mmol/L [facility] Anion gap 10 2 - 15 mmol/L [facility] BUN 18 6 - 25 mg/dL [facility] Creatinine 0.75 0.60 - 1.10 mg/dL [facility] Glucose 105 70 - 199 mg/dL [facility] Comment: Interpretive Data Fasting glucose >/= [...] 2022. Calcium 9.7 8.5 - 10.3 mg/dL [facility] Bilirubin, total 0.8 0.1 - 1.2 mg/dL [facility] W Protein, pl 7.7 6.5 - 8.5 g/dL [facility] Albumin 4.1 3.5 - 5.0 g/dL [facility] Alk phos 102 40 - 130 Units/L [facility] ALT 21 7 - 45 Units/L [facility] AST 30 10 - 45 Units/L [facility] Blood 01/30/2025 2:26 PM CDT 01/30/2025 3:32 PM CDT us Katlin Carnes NP LAB BLOOD ORDERABLES Fin al Result [facility] [address] [facility]. Department of [place] [address] * Extended/Intermediate Holter Patch (>48 hours up to 7 days) (01/30/2025 2:24 PM CDT) Anatomical Region Laterality Modality Electrocardiogra phy 01/31/2025 12:2 3 PM CDT Narrative 02/11/2025 3:51 PM CDT [facility] Cardiac Diagnostic Lab [address] [place] [address] HOLTER MONITOR Patient Name: TANA FISHER RUTH : 1950 (74y 6m) Gender: F Study Date: 01/31/2025 12:23:28 PM Ht(Inch): Wt(Lb): BSA: Tech: Location: [facility] Order Provider: KATLIN CARNES BMI: Ref Provider: KATLIN CARNES PROCEDURES: Holter Report: EXTENDED/SENIOR LIVING HOLTER PATCH (>48 HOURS UP TO 7 DAYS) [[id number]]. Enrollment Period: 01/31/2025 12:23 - 02/03/2025 12:21. Monitor Number: [id number]. Hookup: Patient Hookup: HOME. Patient Instructions: Patient picked up device from office and understand directions and use of the equipment. Location: [facility]. INDICATIONS: I49.3 Ventricular premature depolarization. FINDINGS: Holter Data: Min Rate: 43 BPM Min Rate Timestamp: 2025-02-03 05:52:32 Max Rate: 152 BPM Max Rate Timestamp: 2025-01-31 13:37:15 Mean Rate: 69 BPM Singlets (PACs): 47068 events Couplets (PACs): 77715 events Total (SVE): 01889 events Singlets (PVCs): 4950 events Couplets (PVCs): 51 events Runs (VT): 7 events Total (VE): 5059 events Total beats: 076507 Protocol: Recording Duration (Actual): 105049.56 Total QRS: 611180 CONCLUSIONS: 1. The PDF can be found in the [facility] Patient chart. Please go to the Cardiology tab, click on the holter or event exam. Scroll to bottom where the ORDER-LEVEL Documents reside and click the blue link to the pdf. 2. *The predominant rhythm was Sinus with Frequent Supraventricular Ectopy. *The Maximum Heart Rate recorded was 152 bpm, 01/31 13:37:15, the Minimum Heart Rate recorded was 43 bpm, 02/03 05:52:32, and the Average Heart Rate was 69 bpm. *There were 5,059 VE beats with a burden of 2 %. There were 2 occurrences of Ventricular Tachycardia with the Fastest episode 148 bpm, 01/31 17:37:39, and the Longest episode 4 beats, 02/02 16:23:07. *There were 69,012 SVE beats with a burden of 23 %. There were 5,320 occurrences of Supraventricular Tachycardia with the Fastest episode 152 bpm, 01/31 13:37:14, and the Longest episode 12 beats, 01/31 21:06:20. *There were 5 Patient Triggers these were associated with fluttering symptoms. The strips showed: Short SVRT runs, APDs, rare VPD and one strip of NSR. Electronically Signed By: Kimberli HATCHC 02/11/2025 3:30:19 PM CDT Electronically Signed By: Kimberli Shepherd [facility] 02/11/2025 3:30:19 PM CDT Procedure Note Kimberli Shepherd MD - 02/11/2025 [facility] Cardiac Diagnostic Lab [address] , [address] [place] [address] HOLTER MONITOR Patient Name: TANA FISHER RUTH : 1950 (74y 6m) Gender: F Study Date: 01/31/2025 12:23:28 PM Ht(Inch): Wt(Lb): BSA: Tech: Location: I Order Provider: KATLIN CARNES BMI: Ref Provider: KATLIN CARNES PROCEDURES: Holter Report: EXTENDED/SENIOR LIVING HOLTER PATCH (>48 HOURS UP TO 7 DAYS)[[id number]]. Enrollment Period: 01/31/2025 12:23 - 02/03/2025 12:21. Monitor Number: [id number]. Hookup: Patient Hookup: HOME. Patient Instructions: Patient picked up device from office and understanddirections and use of the equipment. Location: [facility]. INDICATIONS: I49.3 Ventricular premature depolarization. FINDINGS: Holter Data: Min Rate: 43 BPM Min Rate Timestamp: 2025-02-03 05:52:32 Max Rate: 152 BPM Max Rate Timestamp: 2025-01-31 13:37:15 Mean Rate: 69 BPM Singlets (PACs): 69372 events Couplets (PACs): 96376 events Total (SVE): 03813 events Singlets (PVCs): 4950 events Couplets (PVCs): 51 events Runs (VT): 7 events Total (VE): 5059 events Total beats: 449899 Protocol: Recording Duration (Actual): 628419.56 Total QRS: 795619 CONCLUSIONS: 1. The PDF can be found in the [facility] Patient chart. Please go to theCardiology tab, click on the holter or event exam. Scroll to bottom where the ORDER-LEVELDocuments reside and click the blue link to the pdf. 2. *The predominant rhythm was Sinus with Frequent SupraventricularEctopy. *The Maximum Heart Rate recorded was 152 bpm, 01/31 13:37:15, the MinimumHeart Rate recorded was 43 bpm, 02/03 05:52:32, and the Average Heart Rate was 69 bpm. *There were 5,059 VE beats with a burden of 2 %. There were 2 occurrencesof Ventricular Tachycardia with the Fastest episode 148 bpm, 01/31 17:37:39, and the Longest episode4 beats, 02/02 16:23:07. *There were 69,012 SVE beats with a burden of 23 %. There were 5,320occurrences of Supraventricular Tachycardia with the Fastest episode 152 bpm, 01/31 13:37:14, and theLongest episode 12 beats, 01/31 21:06:20. *There were 5 Patient Triggers these were associated with flutteringsymptoms. The strips showed: Short SVRT runs, APDs, rare VPD and one strip of NSR. Electronically Signed By: Kimberli Shepherd [facility] 02/11/2025 3:30:19 PM CDT Electronically Signed By: Kimberli Shepherd [facility] 02/11/2025 3:30:19 PM CDT Result [facility] Katlin Carnes NP CV CARDIAC SERVICES PROC EDURES Final Result * ECG 12 lead (01/30/2025 1:13 PM CDT) Katlin Carnes NP ECG ORDERABLES Edited R esult - Final * Sleep Study (12/29/2024 3:30 PM FORENSICS ANALYST) Chrissy Guerra MD SLEEP CENTER ORDERABLES Fin al Result * SLEEP LAB/STUDY - RESULT (12/29/2024) us Provider Scanning Edited Result - Final * MR Body Outside Consult (12/25/2024 2:00 PM FORENSICS ANALYST) Anatomical Region Laterality Modality Body N/A Magnetic Resonan ce 12/25/2024 2:22 PM FORENSICS ANALYST Impressions 12/25/2024 2:22 PM FORENSICS ANALYST 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 Dictated by: Antonia López MD The radiology attending physician has personally reviewed this study, and had reviewed and/or edited this written report and agrees with it. Electronically signed by: Jaimie El M.D. Narrative 12/25/2024 2:22 PM FORENSICS ANALYST EXAMINATION: RADIOLOGY CONSULTATION ON OUTSIDE IMAGING STUDY STUDY INITIALLY PERFORMED: 12/24/2024 at [facility]. TYPE OF STUDY: Multiple MR images of [...] IMAGING STUDY STUDY INITIALLY PERFORMED: 12/24/2024 at [facility]. TYPE OF STUDY: Multiple MR images [...] images may or may not represent the deering source data set and thus may contain [...] Other us Provider Scanning Final Result * MAMMOGRAPHY (02/13/2024) [facility] Signature Mammography Normal us Historical Provider HEALTH MAINTENANCE Final Result from Last 3 Months or Most Recently Relevant to Health [place] [address] [place] [address] [facility] Address: [facility] [address] [place] [address] [place] [address] MEDICARE [facility] FORMERLY [facility] SUPPLEMENT [facility] H[facility]/PPO Address: [address] [address] [place] [address] MEDICARE FORMERLY [facility] SUPPLEMENT [employer] MEDICARE FORMERLY [facility] SUPPLEMENT [facility] FOR LIFE [facility] H[facility]/PPO Address: [address] [address] [place] [address] Advance Directives For more information, please contact: [phone] Documents on File Type Date Recorded Patient Reverser Expl anation ADVANCE DIRECTIVE 07/05/2023 12:51 PM Bhavik r of [employer] Support Specialist-Medical * Full Code (Latest Code Status on [...] 5:42 PM 08/26/2021 2:15 PM Care Teams Grants Director Relationship Specialty Start Date End Date Estrella Acosta NP [address] [facility] [address] [place] [address] PCP - General Family Medicine 07/26/23 Katlin Carnes NP [address] [facility] [address] [place] [address] Nurse Practitioner Cardiology 07/26/23 Mike Mcpherson MD [address] [address] Consulting Physician Cardiology 07/26/23 Jaciel Rangel MD [address] [place] [address] Consulting Physician Urology 07/26/23
--- OUTSIDE RECORDS SUMMARY | 2025-02-18 08:18 | XMS_ITS | Encounter Summary ---
Author Organization [facility] Address [address] [place] [address] Phone Care Team Providers Care Consulting Services Project Manager Name Role Phone Estrella Acosta NP Primary Care Provider [phone] Katlin Carnes NP Unavailable Mike Mcpherson MD Unavailable [phone] Jaciel Rangel MD Unavailable [phone] Encounter Details Date Type Department Care Team (Late st Contact Info) Description 01/30/2025 Results Follow-Up [facility] Cardiology [address] [facility] [address] [place] [address] Katlin Carnes, CITY TAX AUDITOR [address] [facility] [address] [place] [address] Social History Tobacco Use Types Packs/Day Years [...] 07/05/2023 How often do you attend chur or latter day services? Never 07/05/2023 Do you belong to any clubs o r organizations such as jew groups, unions, fraternal or athletic groups, or [...] place to sleep or slept in a halfway (including now)? No 07/05/2023 Personal Safety Answer Date Recorded Have you ever been in or are you currently in a harmful physical or emotional relationship or is someone making you feel afraid or unsafe? Denies 10/16/2024 Comments No Sex and Gender Information Value Date Recorded Sex Assigned at Not on file Legal Sex Female 6:09 AM BUSINESS INSIGHT AND ANALYTICS MANAGER Gender Identity Not on file Sexual Orientation Not on file documented as of this encounter Miscellaneous Notes * Result Encounter Note - Katlin Carnes NP - 02/11/2025 4:04 PM CDT Please let Tana know that monitor did not show Afib. She does have frequent PACs and very brief runs of SVT. These are not dangerous but likely annoying her. We could increase her Metoprolol to 25 mg XL a day if she wants or wait and see how she does after her sleep disordered breathing is treated. * Result Encounter Note - Katlin Carnes NP - 01/31/2025 9:[address] Mcpherson, I saw Ms. Fisher in EP clinic yesterday. She is not having Afib/flutter but did have frequent ectopy. I placed a monitor to quantify burden and will then make further recs. In the meantime, she has complaints of fluid retention so I got a pro BNP which is attached. Renal function and electrolytes are ok. I am going to ask her to f/u with you regarding next steps for fluid retention. Katlin Hodges NP documented in this encounter Plan of Treatment Not on file documented as of this encounter Visit Diagnoses Not on filedocumented in this encounter Care Teams Consulting Services Project Manager Relationship Specialty Start Date End Date Estrella Acosta NP [address] [place] [address] PCP - General Family Medicine 07/26/23 Katlin Carnes NP [address] [facility] [address] [place] [address] Nurse Practitioner Cardiology 07/26/23 Mike Mcpherson MD [address] [place] [address] [address] Consulting Physician Cardiology 07/26/23 Jaciel Rangel MD [address] [facility] [address] [place] [address] Consulting Physician Urology 07/26/23 documented as of this encounter
--- OUTSIDE RECORDS SUMMARY | 2025-02-18 08:18 | XMS_ITS | Encounter Summary ---
Author Organization [facility] Address [address] [place] [address] Phone Care Team Providers Care Cutting Machine Offbearer Name Role Phone Estrella Acosta NP Primary Care Provider [phone] Katlin Carnes NP Unavailable [phone] Mike Mcpherson MD Unavailable [phone] Jaciel Rangel MD Unavailable [phone] Encounter Details Date Type Department Care Team (Latest Contact Info) Description 12/29/2024 Orders Only [facility] Scanning, Provider Social History Tobacco Use Types [...] often do you attend chur ch or buddhism services? 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 Gender Identity Not on file Sexual Orientation Not on file documented as of this encounter Functional Status documented as of this encounter Plan of Treatment Not on file documented as of this encounter Procedures Procedure Name Priority Date/Time Associated Diagnosis Comments SLEEP LAB/STUDY - RESULT 12/29/2024 documented in this encounter Results * SLEEP LAB/STUDY - RESULT (12/29/2024) us Provider Scanning Edited Result - Final documented in this encounter Visit Diagnoses Not on filedocumented in this encounter Care Teams Cutting Machine Offbearer Relationship Specialty Start Date End Date Estrella Acosta NP [address] [place] [address] PCP - General Family Medicine 07/26/23 Katlin Carnes NP [address] [place] [address] Nurse Practitioner Cardiology 07/26/23 Mike Mcpherson MD [address] [facility] [address] [address] Consulting Physician Cardiology 07/26/23 Jaciel Rangel MD [address] [place] [address] Consulting Physician Urology 07/26/23 documented as of this encounter
--- OUTSIDE RECORDS SUMMARY | 2025-02-18 08:18 | XMS_ITS | Encounter Summary ---
Author Organization [facility] Address [address] [facility] [place] [address] Care Team Providers Care Equipment Processor Name Role Phone Enma Hamlin MD Primary Care Provider [phone] Encounter Details Date Type Department Care Team (Late st Contact Info) Description 03/15/2022 Lab Requisition [facility] [address] [place] [address] Bettina Acevedo MD [address] [place], [place] [id number] Illness, unspecified Social History Tobacco Use Types Packs/Day Years Used Date Smoking Tobacco: Never Assessed Comments Unknown Sex and Gender Information Value Date Recorded Sex Assigned at Not on file Legal Sex Female 4:31 AM CDT Gender Identity Not on file Sexual Orientation [...] 1:25 PM CDT) Final Diagnosis URINE/VOIDED (OSC: [id number]; 03/11/2022): - Atypical urothelial cells 03/16/2022 8:10 AM CDT [facility] Microscopic Description and Comment Rare cell with hyperchromasia, coarse chromatin and elevated N:C ratio. 03/16/2022 8:10 AM CDT [facility] Clinical History HEMATURIA, CYSTOSCOPY NEGATIVE 03/16/2022 8:10 AM CDT [facility] Materials Received One thin prep slide received from [facility] [id number]. All material will be returned 03/16/2022 8:10 AM CDT [facility] Disclaimer The performance characteristics of all immunohistochemical and indirect immunofluorescence stains (if any) cited in this report were determined by the [facility]. Some of these tests were developed by [...] attending (teaching) pathologist. 03/16/2022 8:10 AM CDT [facility] Case Report Surgical Pathology Report Case: [id number] Authorizing Provider: Bettina Acevedo MD Collected: 03/15/2022 01:25 PM Ordering Location: [facility] Received: 03/15/2022 01:25 PM Pathologist: Taco Bui MD Specimen: Slide Consultation 03/16/2022 8:10 AM CDT [facility] Embedded Images 03/16/2022 8:10 AM CDT [facility] Pathology/Cytolo gy SURGICAL PATHOLOGY CONSULTATION AND REPORT ON REFERRED SLIDES PREPARED ELSEWHERE / Unknown 03/15/2022 1:25 PM CDT 03/15/2022 1:25 PM CDT us Bettina Acevedo MD LAB - PATHOLOGY/CYTOLOGY ORDERAB LES Final Result [facility] [address] [phone] documented in this encounter Visit Diagnoses Diagnosis Illness, unspecified documented in this encounter Care Teams Equipment Processor Relationship Specialty Start Date End Date Enma Hamlin MD [address] [place] [address] PCP - General 04/23/19 documented as of this encounter
--- OUTSIDE RECORDS SUMMARY | 2025-02-18 08:18 | XMS_ITS | Clinical Summary ---
Author Organization [facility] Address [facility] [place] [address] Care Team Providers Care Finishing Supervisor Plastic Sheets Name Role Phone Estrella Acosta NP Primary Care Provider [phone] Katlin Carnes NP Unavailable [phone] Mike Mcpherson MD Unavailable [phone] Jaciel Rangel MD Unavailable [phone] Allergies Active Allergy Reactions Criticality Noted Date Comments Prednisone Rash Medium 05/08/2021 Itching/burning rash Thimerosal Itching,Other (See comments),Redness Low 06/27/2024 Preservative in contact blocker and cutter contact lens-caused redness, itching and burning of eyes Medications [...] 06/15/2024 Assessment & Plan (10/17/2024 1:05 PM AUTOMOTIVE MANAGER): The patient has prior history of atrial [...] 08/25/2021 Assessment & Plan (10/16/2024 7:22 PM AUTOMOTIVE MANAGER): Continue with Eliquis 5 mg p.o. b.i.d. [...] 08/25/2021 Assessment & Plan (10/17/2024 1:04 PM AUTOMOTIVE MANAGER): Follows with [facility] Cardiology. Recent TTE was remarkable for mildly [...] (06/29/2021): Added automatically from request for surgery [id number] Assessment & Plan (08/26/2021 12:30 PM CDT): [...] Department Care Team Description 02/08/2025 Orders Only [facility] Primary Care at [address] [address] Chrissy Guerra MD 01/30/2025 3:00 PM CDT Lab [facility] [address] [address] PVC's (premature ventricular contractions); Chronic HFrEF (heart failure with reduced ejection fraction) ([facility]) 01/30/2025 2:30 PM CDT Ancillary Procedure [facility] [address] [facility] [address] [place] [address] PVC's (premature ventricular contractions) 01/30/2025 1:30 PM CDT Office Visit [facility] Cardiology [address] [facility] Medical Office Building [address] [place] [address] Katlin Carnes NP Atrial fibrillation and flutter (HCC) (Primary Dx); PVC's (premature ventricular contractions); Chronic HFrEF (heart failure with reduced ejection fraction) (HCC); Atypical atrial flutter (HCC) 01/30/2025 Results Follow-Up [facility] Cardiology [address] [place] [address] Office Building [address] [place] [address] Katlin Carnes NP 01/17/2025 Telephone [facility] Gastroenterology [facility] 12th [place] [address] [place] [address] Osmin Rapp 01/01/2025 11:00 AM AUTOMOTIVE MANAGER Office Visit [facility] Gastroenterology [address] [facility] Medical Office Building [address], [address] [place] [address] Emanuel Solano MD Pancreatic cyst (Primary Dx); Pancreatic lesion; History of colon polyps 12/29/2024 Orders Only [facility] Scanning, Provider 12/25/2024 2:00 PM AUTOMOTIVE MANAGER - 12/25/2024 11:59 PM AUTOMOTIVE MANAGER Hospital Encounter [facility] [address] [place] [address] Diagnosis unknown Discharge Disposition: Discharge to home or self care 12/24/2024 Orders Only [facility] Scanning, Provider 11/20/2024 Telephone [facility] Gastroenterology [address] [facility] 12th [place] [address] [place] [id number] Osmin Rapp from Last 3 Months Immunizations Immunization Administration [...] Influenza, Unspecified 08/21/2024,2022(Deferred: Patient Refused),11/07/2022(Deferred: Patient Refused) [employer] SARS-CoV-2 Monovalent Vaccination (12+ Yrs) PURPLE 08/24/2022 [...] TW Conv) Pulmonary embolism (HCC) Atrial fibrillation (HCC) 09/03/21 PE (pulmonary thromboembolism) (HCC) 09/03/21 Heart disease Aug 2020 Heart failure with reduced e jection fraction (HCC) Family History Medical History Relation Name [...] often do you attend chur ch or jain services? Never 07/05/2023 Do you belong to any clubs o r organizations such as faith groups, unions, fraternal or athletic groups, or [...] place to sleep or slept in a care home (including now)? No 07/05/2023 Personal Safety Answer Date Recorded Have you ever been in or are you currently in a harmful physical or emotional relationship or is someone making you feel afraid or unsafe? 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 Gender Identity Not on file Sexual Orientation Not on file Obstetrics History Last Filed Vital Signs Vital Sign Reading Time Taken Comments Blood Pressure 124/72 01/30/2025 1:10 PM CDT Pulse 57 01/30/2025 1:10 PM CDT Temperature 36.6 C (97.9 F) 10/17/2024 6:00 AM AUTOMOTIVE MANAGER Respiratory Rate 17 10/17/2024 6:00 AM AUTOMOTIVE MANAGER Oxygen Saturation 97% 01/30/2025 1:10 PM CDT Inhaled Oxygen Concentration - - Weight 80.3 kg (177 lb) 01/30/2025 1:10 PM CDT Height 170.2 cm (5' 7 ) 01/30/2025 1:10 PM CDT Body Mass Index 27.72 01/30/2025 1:10 PM CDT Plan of Treatment Health Maintenance Due Date Last Done Comments Colon Cancer Screening-Colonoscopy 1950 Hepatitis C Screening 1950 Osteoporosis Screening-Bone Density Scan 1950 Covid-19 Vaccine (2023-2 5 season) 2024 07/23/2023, 08/24/2022, 08/14/2021, Additional [...] history exists Medical Devices Implanted Type Area Navigating Officer Device Identifier Shelf Expiration Date Model / Serial / Lot [employer] [id number] Device Closure Vascade Od5 Fr Femoral Artery - [id number] Implanted:Qty: 1 on 08/25/2021 by Kevin Sexton MD at [facility] Collagen Left: Groin [employer] 05/21/2023 [id number] -[id number] / / [id number] Description:5fr vascade clos ure device [employer] [id number] System 6-12fr Mvp Venous Closure Vascade - [id number] Implanted:Qty: 1 on 08/25/2021 by Kevin Sexton MD at [facility] Collagen Left: Groin [employer] 04/29/2023 800-612C- 10U / / [id number] 23A [employer] [id number] System 6-12fr Mvp Venous Closure Vascade - [id number] Implanted:Qty: 1 on 08/25/2021 by Kevin Sexton MD at [facility] Collagen Right: Groin [employer] 04/29/2023 800-612C- 10U / / [id number] 23A [employer] [id number] System 6-12fr Mvp Venous Closure Vascade - [id number] Implanted:Qty: 1 on 08/25/2021 by Kevin Sexton MD at [facility] Collagen Right: Groin [employer] 04/29/2023 800-612C- 10U / / [id number] 23A [employer] Device Vascular Closure Femoral Artery Bioabsorbable Dual Method Vascade 6-7fr Collagen [id number] - [id number] Implanted:Qty: 1 on 10/16/2024 by Edinson Bridges MD PhD at [facility] Vascular Closure Device [employer] 08/08/2026 [id number]- 05U / / [id number] Description:Vascade [employer] Device Vascular Closure Vascade Mvp Xl 10-12fr Venous Strl 800-1012xl - [id number] Implanted:Qty: 1 on 10/16/2024 by Edinson Bridges MD PhD at [facility] Vascular Closure Device [employer] 07/16/2026 [id number] L / / [id number] Description:Vascade [employer] Device Vascular Closure Vascade Mvp Xl 10-12fr Venous Strl 800-1012xl - [id number] Implanted:Qty: 1 on 10/16/2024 by Edinson Bridges MD PhD at [facility] Vascular Closure Device [employer] 07/16/2026 [id number] L / / [id number] Description:Vascade Procedures Procedure Name Priority Date/Time [...] 2:26 PM CDT PVC's (premature ventricular contractions) EXTENDED/PENITENTIARY HOLTER PATCH (>48 HOURS UP TO 7 DAYS) Routine 01/30/2025 2:24 PM CDT PVC's (premature ventricular contractions) ECG 12-LEAD Routine 01/30/2025 1:13 PM CDT Atrial fibrillation and flutter (HCC) SLEEP STUDY Routine 12/29/2024 3:30 PM AUTOMOTIVE MANAGER SLEEP LAB/STUDY - RESULT 12/29/2024 MR BODY OUTSIDE CONSULT Routine 12/25/2024 2:00 PM AUTOMOTIVE MANAGER Diagnosis unknown SCAN - RADIOLOGY/IMAGING 12/24/2024 MAMMOGRAPHY Routine 02/13/2024 from Last 3 Months [...] LAB BLOOD ORDERABLES Fin al Result JOSY [facility] [address] [facility]. [employer] [place] [address] * (ABNORMAL) Pro B-type natriuretic [...] et.al. Eur Heart J. 2006:27:330-337. 2. Harjit MCGREGOR, Rabia PUGA. J. AM Lana Cardiol: Cardiovasc Imag. 2009;2: 216- 225. Interpretive Data Last Revised Date: 2018. Blood 01/30/2025 2:26 PM CDT 01/30/2025 3:32 PM CDT Katlin Ibarra Trice LAB BLOOD ORDERABLES Fin al Result Performing Organization Address [facility] Phone Number JOSY AND[facility] [address] [facility] [place]. [facility] [employer] [place], [place] [id number] * Magnesium (01/30/2025 2:26 PM CDT) [facility] Magnesium 2.0 1.4 - 2.5 mg/dL Comment: Reference Data. Reference values for Labor and Delivery patients: < or = 0.7 mg/dL to > or = 7.3 mg/dL Current reference data last reviewd on 08/06/2015. Blood 01/30/2025 2:26 PM CDT 01/30/2025 3:32 PM CDT Katlin Ibarra Trice LAB BLOOD ORDERABLES Fin al Result Performing Organization Address [facility] Phone Number JOSY [facility] [address] [employer]. [facility] [employer] [place], [place] [id number] * Comprehensive metabolic panel (01/30/2025 2:26 PM CDT) Pathologist [facility] Sodium 137 135 - 145 mmol/L Potassium, pl 4.4 3.3 - 4.9 mmol/L [facility] Chloride 99 97 - 110 mmol/L [facility] CO2 28 22 - 32 mmol/L [facility] Anion gap 10 2 - 15 mmol/L [facility] BUN 18 6 - 25 mg/dL [facility] W Creatinine 0.75 0.60 - 1.10 mg/dL [facility] Glucose 105 70 - 199 mg/dL [facility] Comment: Interpretive Data Fasting glucose >/= [...] total 0.8 0.1 - 1.2 mg/dL [facility] Protein, pl 7.7 6.5 - 8.5 g/dL [facility] Albumin 4.1 3.5 - 5.0 g/dL [facility] Alk phos 102 40 - 130 Units/L [facility] ALT 21 7 - 45 Units/L [facility] AST 30 10 - 45 Units/L [facility] Blood 01/30/2025 2:26 PM CDT 01/30/2025 3:32 PM CDT Katlin Carnes NP LAB BLOOD ORDERABLES Fin al Result [facility]OS[facility] [address] [facility] [place]. [place] [address] * Extended/Intermediate Holter Patch (>48 hours up to 7 days) (01/30/2025 2:24 PM CDT) Anatomical Region Laterality Modality Electrocardiogra phy 01/31/2025 12:2 3 PM CDT Narrative 02/11/2025 3:51 PM CDT Heart [facility] Cardiac Diagnostic Lab [address], [address] [place] [address] HOLTER MONITOR Patient Name: TANA FISHER RUTH : 1950 (74y 6m) Gender: F Study Date: 01/31/2025 12:23:28 PM Ht(Inch): Wt(Lb): BSA: Tech: Location: [facility] Order Provider: KATLIN CARNES BMI: Ref Provider: KATLIN CARNES PROCEDURES: Holter Report: EXTENDED/PENITENTIARY HOLTER PATCH (>48 HOURS UP TO 7 DAYS) [[id number]]. Enrollment Period: 01/31/2025 12:23 - 02/03/2025 12:21. Monitor Number: [id number]. Hookup: Patient Hookup: HOME. Patient Instructions: Patient picked up device from office and understand directions and use of the equipment. Location: [facility]. INDICATIONS: I49.3 Ventricular premature depolarization. FINDINGS: Holter Data: Min Rate: 43 BPM Min Rate Timestamp: 2025-02-03 05:52:32 Max Rate: 152 BPM Max Rate Timestamp: 2025-01-31 13:37:15 Mean Rate: 69 BPM Singlets (PACs): 53389 events Couplets (PACs): 19975 events Total (SVE): 85643 events Singlets (PVCs): 4950 events Couplets (PVCs): 51 events Runs (VT): 7 events Total (VE): 5059 events Total beats: 700000 Protocol: Recording Duration (Actual): 149707.56 Total QRS: 559183 CONCLUSIONS: 1. The PDF can be found in the Epic Patient chart. Please go to the Cardiology [...] of NSR. Electronically Signed By: Kimberli Shepherd [facility] 02/11/2025 3:30:19 PM CDT Electronically Signed By: Kimberli Shepherd [facility] 02/11/2025 3:30:19 PM CDT Procedure Note Kimberli Shepherd MD - 02/11/2025 [facility] Cardiac Diagnostic Lab [address], [address] [place] [address] HOLTER MONITOR Patient Name: TANA FISHER RUTH : 1950 (74y 6m) Gender: F Study Date: 01/31/2025 12:23:28 PM Ht(Inch): Wt(Lb): BSA: Tech: Location: [facility] Order Provider: KATLIN CARNES BMI: Ref Provider: KATLIN CARNES PROCEDURES: Holter Report: EXTENDED/PENITENTIARY HOLTER PATCH (>48 HOURS UP TO 7 DAYS)[[id number]]. Enrollment Period: 01/31/2025 12:23 - 02/03/2025 12:21. Monitor Number: [id number]. Hookup: Patient Hookup: HOME. Patient Instructions: Patient picked up device from office and understanddirections and use of the equipment. Location: [facility]. INDICATIONS: I49.3 Ventricular premature depolarization. FINDINGS: Holter Data: Min Rate: 43 BPM Min Rate Timestamp: 2025-02-03 05:52:32 Max Rate: 152 BPM Max Rate Timestamp: 2025-01-31 13:37:15 Mean Rate: 69 BPM Singlets (PACs): 53326 events Couplets (PACs): 90732 events Total (SVE): 22312 events Singlets (PVCs): 4950 events Couplets (PVCs): 51 events Runs (VT): 7 events Total (VE): 5059 events Total beats: 114725 Protocol: Recording Duration (Actual): 627364.56 Total QRS: 962150 CONCLUSIONS: 1. The PDF can be found in the [facility] Patient chart. Please go to theCardiology tab, [...] of NSR. Electronically Signed By: Kimberli Shepherd [facility] 02/11/2025 3:30:19 PM CDT Electronically Signed By: Kimberli Shepherd [facility] 02/11/2025 3:30:19 PM CDT us Katlin Carnes NP CV CARDIAC SERVICES PROC EDURES Final Result * ECG 12 lead (01/30/2025 1:13 PM CDT) us Katlin Carnes NP ECG ORDERABLES Edited R esult - Final * Sleep Study (12/29/2024 3:30 PM AUTOMOTIVE MANAGER) Chrissy Guerra MD SLEEP CENTER ORDERABLES Fin al Result * SLEEP LAB/STUDY - RESULT (12/29/2024) Provider Scanning Edited Result - Final * MR Body Outside Consult (12/25/2024 2:00 PM AUTOMOTIVE MANAGER) Anatomical Region Laterality Modality Body N/A Magnetic Resonan ce 12/25/2024 2:22 PM AUTOMOTIVE MANAGER Impressions 12/25/2024 2:22 PM AUTOMOTIVE MANAGER 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 Dictated by: Antonia López MD The radiology attending physician has personally reviewed this study, and had reviewed and/or edited this written report and agrees with it. Electronically signed by: Jaimie El M.D. Narrative 12/25/2024 2:22 PM AUTOMOTIVE MANAGER EXAMINATION: RADIOLOGY CONSULTATION ON OUTSIDE IMAGING STUDY STUDY INITIALLY PERFORMED: 12/24/2024 at [facility]. TYPE OF STUDY: Multiple MR images of [...] IMAGING STUDY STUDY INITIALLY PERFORMED: 12/24/2024 at [facility]. TYPE OF STUDY: Multiple MR images [...] images may or may not represent the curyung source data set and thus may contain changes that may lower the accuracy of this second-opinion interpretation. Dictated by: Antonia López MD The radiology attending physician has personally reviewed this study, and had reviewed and/or edited this written report and agrees with it. Electronically signed by: Jaimie El M.D. Emanuel Solano MD IMG MRI PROCEDURES Final R esult * SCAN - RADIOLOGY/IMAGING (12/24/2024) Anatomical Region Laterality Modality Other Provider Scanning Final Result * MAMMOGRAPHY (02/13/2024) [facility] Signature Mammography Normal Historical Provider HEALTH MAINTENANCE Final Result from Last 3 Months or Most Recently Relevant to Health Maintenance Insurance MEDICARE FOR LIFE MEDICARE FOR LIFE [facility] SUPPLEMENT MADELINE BARRERA [id number] [place] [address] [facility] SUPPLEMENT MADELINE BARRERA [id number] FOR LIFE MEDICARE FORMERLY [facility] FOR LIFE [facility] Advance Directives For more information, please contact: [phone] Documents on File Type Date Recorded Patient Film Inspector Expl anation ADVANCE DIRECTIVE 07/05/2023 12:51 PM Bhavik r of [employer] * Full Code (Latest Code Status on [...] 5:42 PM 08/26/2021 2:15 PM Care Teams Finishing Supervisor Plastic Sheets Relationship Specialty Start Date End Date Estrella Acosta NP [address] [facility] [address] [place] [address] PCP - General Family Medicine 07/26/23 Katlin Carnes NP [address] [facility] [address] [place] [address] Nurse Practitioner Cardiology 07/26/23 Mike Mcpherson MD [address] [facility] [address] [address] Consulting Physician Cardiology 07/26/23 Jaciel Rangel MD [address] [place] [address] Consulting Physician Urology 07/26/23
--- OUTSIDE RECORDS SUMMARY | 2025-02-18 08:18 | XMS_ITS | Clinical Summary ---
Author Organization [facility] Address [address] [facility] [place] [address] Care Team Providers Care Mold Filler Name Role Phone Enma Hamlin MD Primary Care Provider [phone] Source Comments [facility],non-owned Affiliates and Associated Physician Practices is amultiple site organization consisting of ambulatory clinics and hospital sitesin [place], [place], [place]. This disclosure is being madepursuant to the Care Everywhere program and may not contain all information available regarding this patient. Last updated 18.[facility] [employer] Social History Tobacco Use Types Packs/Day Years [...] VACCINE ( - 2023-2 5 season) 2024 DEPRESSION SCREENING 11/07/2024 INFLUENZA VACCINE (Season Ended) 2025 Respiratory Syncytial Virus (RSV) Vaccine Pt: or [...] to complete this topic MENINGOCOCCAL (Group B) VACC INE SHARED DECISION-MAKING Aged Out No longer eligibl e based on patient's age to complete this topic MENINGOCOCCAL GROUPS A/C/Y/W VACCINE Aged Out No longer eligible b ased on patient's age to complete this topic Insurance MEDICARE [facility] Care Teams Mold Filler Relationship Specialty Start Date End Date Enma Hamlin MD [address] [place], [place] [id number] PCP - General 04/23/19
[2025-03-07 15:09] VITALS: BMI 28.4
--- NOTE | 2025-03-07 15:09 | WPDSLEEPSTUD ---
Sleep Study Date of Study: 02/18/25 Ordering Provider: Chrissy Guerra MD Interpreting Physician: Kirsten Acosta DO Sleep Study Type: CPAP Titration Height: 1.68 m Weight: 79.832 kg Body Mass Index: 28.4 Neck Circumference (inches): 13 [place]: 3 Reason for Sleep Study Polysomnogram on 12/29/2024 showed overall AHI of 6.0 with desaturation down to 85%. She spent 76 minutes with SpO2<88%. Sleep History The patient is a 74-year-old female that had a sleep study ordered by her certified procedural coder for evaluation of sleep apnea. The patient denies awakening at night with heartburn, belching or cough. She frequently has trouble sleeping when she has a cold. She denies waking up gasping for air throughout the night. She frequently has breathing problems at night observed by others. She denies sweating excessively at night. She constantly notices heart palpitations or irregular heartbeats during the night after surgery. She denies sleep paralysis and cataplexy. She denies having trouble at school or work due to sleepiness. She occasionally has nightmares occasionally remembers her dreams. She rarely has thoughts racing through her mind. She rarely feels sad. She rarely has anxiety. She occasionally has muscular tension. She occasionally notices parts of her body jerk. She denies kicking during the night. She denies having crawling and aching feelings in her legs and denies having leg pain during the night. She occasionally grinds her teeth during sleep but never awakens with morning jaw pain. She is rarely bothered by pain during the day but never awakened by pain during the night. She denies waking up feeling stiff in the morning. She denies waking up with sore or achy muscles. She occasionally wakes up with pain in the neck, spine and other joints. She goes to bed between 9 to 10:30 p.m. on both weekdays and weekends. It takes her 15 minutes to fall asleep. She wakes up 1-2 times throughout the night to urinate is able to fall back asleep within 15 minutes. She wakes up between 630-8 a.m. on both weekdays and weekends. She typically gets 7 to 8.5 hours of sleep per night. She will stay in bed for 1 hour after waking in the morning. She currently lives alone. She denies consuming any caffeinated beverages within 2 hours of bedtime. She denies engaging in physical exercise before bedtime. She will read before falling asleep. She will occasionally watch television before falling asleep. She denies consuming any caffeinated beverages during the day. She denies tobacco, alcohol and recreational drug use. [facility] Surgical History Surgical History History of cataract surgery Family History Family History Mother Ovarian cancer Diabetes mellitus Family history of malignant neoplasm of uterus Carcinoma of colon Sibling Diabetes mellitus Father Family history of malignant neoplasm Family history of thyroid disease Grandparent Family history of malignant neoplasm Multiple myeloma Grandparent Multiple myeloma Other Hypertension Social History Social History Smoking status: Never smoker Second hand tobacco smoke exposure: No Alcohol intake: former Drinks per week: 1 Substance use: never Substance use type: does not use Living arrangements: alone Gender identity (if verbalized by the patient): Female Sexual Orientation (if Verbalized by the Patient): Straight or Heterosexual Spiritual care concerns: No Medications Home Medications ?Medication ?Instructions ?Recorded ?Confirmed ?Type apixaban 5 mg tablet (Eliquis) 5 mg PO Q12H #60 tabs 09/08/20 12/11/24 Rx metoprolol tartrate 25 mg tablet 12.5 mg (1/2 x 25 mg) PO Q12H 30 01/20/21 12/11/24 Rx days #30 tabs furosemide 20 mg tablet 20 mg PO PRN 08/14/21 12/11/24 History sulfamethoxazole 800 1 tablet PO Q12H #11 tabs 08/14/21 12/11/24 Rx mg-trimethoprim 160 mg tablet (Bactrim DS) Sleep Procedure A full night CPAP Titration using the [employer] Sleep[employer]airy multi-channel system recorded the standard physiologic parameters including EEG, EOG, submentalis EMG, anterior tibialis EMG, EKG, body position, nasal and oral airflow using nasal pressure sensor and thermistor.? Respiratory parameters of chest and abdominal movements were recorded with Respiratory Inductance Plethysmography belts. Oxygen saturation was recorded by pulse oximetry. Video monitoring was also performed. Sleep stages, periodic limb movements, and EEG arousals were scored in 30 second epochs according to the criteria of the AASM Scoring Manual. The Apnea-Hypopnea Index was calculated using [facility] guidelines for definition of hypopnea with 4% O2 desaturations while scoring respiratory events. Sleep Architecture The total recording time was 514.4 minutes.? The total sleep time was 371.5 minutes. Sleep latency was 59.0 minutes. REM latency was 65.0 minutes. Sleep efficiency was 72.2%. The patient had 29 awakenings for an awakening index of 4.7. Wake after Sleep Onset time was 83.5 minutes. The patient spent 30.0 minutes, 8.1% of total sleep time in Stage N1. The patient spent 193.0 minutes, 52.0% in Stage N2. The patient spent 97.5 minutes, 26.2% in Stage N3. The patient spent 51.0 minutes, 13.7% in Stage REM. Respiratory Analysis The patient had 2 hypopneas for an overall Apnea Hypopnea Index of 0.3 events per hour. The REM Apnea Hypopnea Index was 1.2. The NREM Apnea Hypopnea Index was 0.2. The patient had a Central Apnea Hypopnea Index of 0. There was no evidence of Tevin-Covarrubias Respirations. The patient was started on CPAP 5 cm H2O and titrated to CPAP 8 cm H2O due to hypopneas. The patient was able to fall asleep starting on CPAP 7 cm H2O. The patient was able to achieve REM sleep starting on CPAP 7 cm H2O. The patient was able to achieve a residual AHI less than 5 with both NREM and REM sleep in the supine position on the final two pressures. On CPAP 7 cm H2O, the patient spent 97.5 minutes in NREM and 5.5 minutes in REM with 1 hypopnea, resulting in an AHI of 0.6. On CPAP 8 cm H2O, the patient spent 223 minutes in NREM and 45.5 minutes in REM with 1 hypopnea, resulting in an AHI of 0.2. The patient had a sleep efficiency of 91.6% on 7 cm H2O and 78.3% on 8 cm H2O. Arousals There were 80 total arousals for an arousal index of 12.9. There were 43 spontaneous arousals for an index of 6.9. ?There were 0 arousals due to respiratory events for an index of 0. There were 23 arousals due to periodic limb movements for an index of 3.7.? There were 15 arousals due to isolated limb movements for an index of 2.4. Periodic Limb Movements The patient had 67 isolated limb movements with an index of 10.8. The patient had 303 periodic limb movements with index of 48.9, which is elevated (normal < 15). Patient had a total of 370 limb movements with a total limb movement index of 59.8. Oximetry Data The patient had an average oxygen saturation of 93.6% in sleep with a minimum oxygen saturation of 91.0% and a maximum oxygen saturation of 98.0%. The patient had 4 oxygen desaturations that were 4% or greater resulting in an Oxygen Desaturation Index of 0.6.? The patient spent 0.1 minutes of total sleep time with an oxygen saturation below 88%. Snoring Profile Snoring was not present during this study. Cardiac Profile The EKG showed normal sinus rhythm with intermittent atrial tachycardia and occasional PACs/PVCs. The patient had an average pulse rate of 57.5 bpm with a minimum pulse rate of 44.0 bpm and a maximum pulse rate of 101.0 bpm. ? EEG Profile No signs of seizure activity seen. Assessment and Plan Assessment and Plan (1) SHARON (obstructive sleep apnea): Code(s): G47.33 - Obstructive sleep apnea (adult) (pediatric) Status: Acute Assessment and Plan: The patient was started on CPAP 5 cm H2O and titrated to CPAP 8 cm H2O due to hypopneas. The patient's sleep apnea resolved on multiple pressure settings. I recommend that the patient be prescribed CPAP 7 cm H2O, size small Resmed AirTouch F20 full face mask, CPAP filters/tubing and heated humidity. This should be used with all episodes of sleep.? Compliance should be reviewed within 31-90 days of starting therapy for usage greater than 4 hours per night greater than 70% of the nights. The patient should be asked about symptoms such as?excessive daytime sleepiness, quality of sleep, decreased nocturia, increased?mental functioning such as memory, mood, and concentration. Data The data obtained during this sleep study is adequate for interpretation. Certification This sleep study has been reviewed by a board certified sleep medicine physician.
== END 2025-02-19 07:16 | disposition home or self-care (01) ==
LOC: ANHCSM 08:09
PROVIDERS: PCP Nurse Practitioner Family; Visit Provider Internal Medicine Critical Care Medicine
DX: G47.33 Obstructive sleep apnea (adult) (pediatric) (principal); I25.9 Chronic ischemic heart disease, unspecified
CPT/HCPCS: 95811

== ENCOUNTER 2025-02-27 13:32 | Outpatient (CLI) | payer MEDICARE, OTHER, SELFPAY ==
--- NOTE | ~2025-02-27 | DEXA_ITS ---
Bone Density Report Name: TERELL COLLINS Age: 74 Sex: Female Ethnicity: White Date of : 1950 Indication: osteopenia; Referring Provider: DARRIUS, FAIZA Lao Study: Bone densitometry was performed. Exam Date: February 27, 2025 Accession number: [id number] Bone Density: Region BMD T-score Z-score Classification AP Spine(L1-L4) 0.823 -2.0 0.2 Osteopenia Femoral Neck (Left) 0.699 -1.3 0.6 Osteopenia Total Hip (Left) 0.922 -0.2 1.5 Normal Femoral Neck (Right) 0.698 -1.4 0.6 Osteopenia Total Hip (Right) 0.892 -0.4 1.2 Normal Total Hip Mean 0.907 -0.3 1.4 Normal World Health Organization criteria for BMD impression classify patients as: Normal (T-score at or above -1.0), Osteopenia (T-score between -1.0 and -2.5), or Osteoporosis (T-score at or below -2.5). 10-year Fracture Risk(1): Major Osteoporotic Fracture 10% Hip Fracture 1.5% Reported Risk Factors: [place] (), Neck BMD=0.699, BMI=27.9 (1) FRAX(R) Version 3.08. Fracture probability calculated for an untreated patient. Fracture probability may be lower if the patient has received treatment. Previous Exams: Region Exam Age BMD T-score BMD Change BMD Change Date g/cm2 vs Baseline vs Previous AP Spine (L1-L4) 02/27/2025 74 0.823 -2.0 0.003 (0.4%) 0.003 (0.4%) 05/02/2018 67 0.820 -2.1 Total Hip(Left) 02/27/2025 74 0.922 -0.2 0.056 (6.5%)* 0.056 (6.5%)* 05/02/2018 67 0.866 -0.6 Total Hip(Right) 02/27/2025 74 0.892 -0.4 0.029 (3.3%)* 0.029 (3.3%)* 05/02/2018 67 0.864 -0.6 *Denotes significance at 95% confidence level, LSC for AP Spine = 0.022 g/cm2, LSC for Total Hip = 0.027 g/cm2 Clinical Information Provided by Patient: Has used the following medications: Vitamin D, Calcium Patient maximum height was 67 Menopause Age: 52 Onset of menses at age 15 Number of children 0 Impression: The patient has low bone mass, based on the Total Spine T-score. The patient has an estimated ten-year risk of hip fracture of 1.5% and an estimated ten-year risk of major fracture of 10%, based on the WHO FRAX algorithm. No significant bone loss was observed. Discussion: BONE DENSITY IS LOW AT ONE OR MORE SKELETAL SITES. This patient's lowest T-score is low at one or more skeletal sites. It meets the World Health Organization's (WHO) criteria for ?low bone mass? (T-score between -1.0 and -2.5). The patient's 10-year risk of fracture as calculated by FRAX is less than the threshold where pharmacological therapy is recommended by the National Osteoporosis Foundation (NOF). However, all treatment decisions require clinical judgment and consideration of individual patient factors, including patient preferences, comorbidities, previous drug use, risk factors not captured in the FRAX model (e.g., frailty, falls, vitamin D deficiency, increased bone turnover, interval significant decline in bone density) and possible under or overestimation of fracture risk by FRAX. The patient should follow a healthful lifestyle (good nutrition with adequate calcium and vitamin D, and appropriate weight-bearing exercise). Follow-Up: Consider repeating this study in 2 to 3 years to reassess this patient's status, or sooner if there is some new clinical indication. Reported by: KERMIT on 02/27/2025 2:06:00 PM. Reviewed, dictated and finalized at location A. VICKY
--- OUTSIDE RECORDS SUMMARY | 2025-02-27 15:15 | XMS_ITS | Encounter Summary ---
Author Organization [facility] Address [address] [place] [address] Phone Care Team Providers Care Clinical Psychology Teacher Name Role Phone Estrella Acosta NP Primary Care Provider [phone] Katlin Carnes NP Unavailable [phone] Mike Mcpherson MD Unavailable [phone] Jaciel Rangel MD Unavailable [phone] Encounter Details Date Type Department Care Team (Late st Contact Info) Description 01/30/2025 Results Follow-Up [facility] Cardiology [address] [facility] Medical Office Building [address] [place] [address] Katlin Carnes, GEOTECHNICAL DEPARTMENT MANAGER [address] [facility] [address] [place] [address] Social History Tobacco Use Types [...] How often do you attend chur or faith services? Never 07/05/2023 Do you belong to any clubs o r organizations such as latter-day groups, unions, fraternal or athletic groups, or [...] place to sleep or slept in a detention (including now)? No 07/05/2023 Personal Safety Answer Date Recorded Have you ever been in or are you currently in a harmful physical or emotional relationship or is someone making you feel afraid or unsafe? Denies 10/16/2024 Comments No Sex and Gender Information Value Date Recorded Sex Assigned at Not on file Legal Sex Female 6:09 AM CORRECTIONAL OFFICER CHIEF Gender Identity Not on file Sexual Orientation [...] on filedocumented in this encounter Care Teams Clinical Psychology Teacher Relationship Specialty Start Date End Date Estrlela Acosta NP [address] [place] [address] PCP - General Family Medicine 07/26/23 Katlin Carnes NP [address] [facility] [address] [place] [address] Nurse Practitioner Cardiology 07/26/23 Mike Mcpherson MD [address] [facility] [address] [address] Consulting Physician Cardiology 07/26/23 Jaciel Rangel MD [address] [facility] [address] [place] [address] Consulting Physician Urology 07/26/23 documented as of this encounter
--- OUTSIDE RECORDS SUMMARY | 2025-02-27 15:15 | XMS_ITS | Encounter Summary ---
Author Organization [facility] Address [address] [place] [address] Phone Care Team Providers Care Ladies Locker Room Attendant Name Role Phone Estrella Acosta NP Primary Care Provider [phone] Katlin Carnes NP Unavailable [phone] Mike Mcpherson MD Unavailable [phone] Jaciel Rangel MD Unavailable [phone] Encounter Details Date Type Department Care Team [...] often do you attend chur ch or zoroastrian services? Never 07/05/2023 Do you belong to any clubs o r organizations such as confucianist groups, unions, fraternal or athletic groups, or [...] place to sleep or slept in a senior care (including now)? No 07/05/2023 Personal Safety Answer Date Recorded Have you ever been in or are you currently in a harmful physical or emotional relationship or is someone making you feel afraid or unsafe? 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 Gender Identity Not on file Sexual Orientation [...] on filedocumented in this encounter Care Teams Ladies Locker Room Attendant Relationship Specialty Start Date End Date Estrella Acosta NP [address] [place] [address] PCP - General Family Medicine 07/26/23 Katlin Carnes NP [address] [place] [address] Nurse Practitioner Cardiology 07/26/23 Mike Mcpherson MD [address] [facility] [address] [address] Consulting Physician Cardiology 07/26/23 Jaciel Rangel MD [address] [place] [address] Consulting Physician Urology 07/26/23 documented as of this encounter
--- OUTSIDE RECORDS SUMMARY | 2025-02-27 15:15 | XMS_ITS | Referral Summary ---
Author Organization [facility] Address [address] [place] [address] Care Team Providers Care Base Ply Hand Name Role Phone Estrella Acosta NP Primary Care Provider [phone] Katlin Carnes NP Unavailable Mike Mcpherson MD Unavailable [phone] Jaciel Rangel MD Unavailable [phone] Encounters Date Type Department Care Team Description 02/08/2025 Orders Only [facility] Primary Care at [address] [address] Chrissy Guerra MD 01/30/2025 3:00 PM CDT Lab [facility] [address] [place] [id number] PVC's (premature ventricular contractions); Chronic HFrEF (heart failure with reduced ejection fraction) ([facility]) 01/30/2025 2:30 PM CDT Ancillary Procedure [facility] [address] [place] [address] [address] [place] FRIEDMAN [phone] PVC's (premature ventricular contractions) 01/30/2025 Results Follow-Up [facility] Card[facility] [address] [place] [address] Office Building [address] [place] [phone] Katlin Carnes NP 01/30/2025 1:30 PM CDT Office Visit [facility] [address] Medical Office Building [address] [place] [address] Katlin Carnes NP Atrial fibrillation and flutter (HCC) (Primary Dx); PVC's (premature ventricular contractions); Chronic HFrEF (heart failure with reduced ejection fraction) (HCC); Atypical atrial flutter (HCC) 01/17/2025 Telephone [facility] [address] [facility] 12th [place] [address] [place] [address] Dionte, [place] 01/01/2025 11:00 AM SOCIAL WORK ADMINISTRATOR Office Visit [facility] [address] [facility] Medical Office Building [address], [address] [place] [phone] Emanuel Solano MD Pancreatic cyst (Primary Dx); Pancreatic lesion; History of colon polyps 12/29/2024 Orders Only [facility] Scanning, Provider 12/25/2024 2:00 PM SOCIAL WORK ADMINISTRATOR - 12/25/2024 11:59 PM SOCIAL WORK ADMINISTRATOR Hospital Encounter [facility] [address] [place] [address] Diagnosis unknown Discharge Disposition: Discharge to home or self care 12/24/2024 Orders Only [facility] Scanning, Provider from Last 3 Months Allergies Active Allergy Reactions Criticality Noted Date Comments Prednisone Rash Medium 05/08/2021 Itching/burning rash Thimerosal Itching,Other (See comments),Redness Low 06/27/2024 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 b.i.d. [...] 08/25/2021 Assessment & Plan (10/17/2024 1:04 PM SOCIAL WORK ADMINISTRATOR): Follows with [facility] Card[facility]. Recent TTE was remarkable for [...] (06/29/2021): Added automatically from request for surgery [id number] Assessment & Plan (08/26/2021 12:30 PM CDT): [...] Influenza, Unspecified 08/21/2024,2022(Deferred: Patient Refused),11/07/2022(Deferred: Patient Refused) [employer] SARS-CoV-2 Monovalent Vaccination (12+ Yrs) PURPLE 08/24/2022 [employer] Sars-Cov-2 Bivalent V accination (12+ YRS) 07/23/2023 [...] How often do you attend chur or scientologist services? Never 07/05/2023 Do you belong to any clubs o r organizations such as temple groups, unions, fraternal or athletic groups, or [...] place to sleep or slept in a penitentiary (including now)? No 07/05/2023 Personal Safety Answer Date Recorded Have you ever been in or are you currently in a harmful physical or emotional relationship or is someone making you feel afraid or unsafe? Denies 10/16/2024 Comments No Sex and Gender Information Value Date Recorded Sex Assigned at Not on file Legal Sex Female 6:09 AM SOCIAL WORK ADMINISTRATOR Gender Identity Not on file Sexual Orientation Not on file Last Filed Vital Signs Vital Sign Reading Time Taken Comments Blood Pressure 124/72 01/30/2025 1:10 PM CDT Pulse 57 01/30/2025 1:10 PM CDT Temperature 36.6 C (97.9 F) 10/17/2024 6:00 AM SOCIAL WORK ADMINISTRATOR Respiratory Rate 17 10/17/2024 6:00 AM SOCIAL WORK ADMINISTRATOR Oxygen Saturation 97% 01/30/2025 1:10 PM CDT Inhaled Oxygen Concentration - - Weight 80.3 kg (177 lb) 01/30/2025 1:10 PM CDT Height 170.2 cm (5' 7 ) 01/30/2025 1:10 PM CDT Body Mass Index 27.72 01/30/2025 1:10 PM CDT Plan of Treatment Not on file Medical Devices Implanted Type Area Side Sawyer Device Identifier Shelf Expiration Date Model / Serial / Lot [employer] [id number] Device Closure Vascade Od5 Fr Femoral Artery - [id number] Implanted:Qty: 1 on 08/25/2021 by Kevin Sexton MD at [facility] Collagen Left: Groin [employer] 05/21/2023 [id number] -[id number] / / [id number] Description:5fr vascade clos ure device [employer] [id number] System 6-12fr Mvp Venous Closure Vascade - [id number] Implanted:Qty: 1 on 08/25/2021 by Kevin Sexton MD at [facility] Collagen Left: Groin [employer] 04/29/2023 800-612C- 10U / / [id number] [employer] [id number] System 6-12fr Mvp Venous Closure Vascade - [id number] Implanted:Qty: 1 on 08/25/2021 by Kevin Sexton MD at [facility] Collagen Right: Groin [employer] 04/29/2023 800-612C- 10U / / [id number] [employer] [id number] System 6-12fr Mvp Venous Closure Vascade - [id number] Implanted:Qty: 1 on 08/25/2021 by Kevin Sexton MD at [facility] Collagen Right: Groin [employer] 04/29/2023 800-612C- 10U / / [id number] 23A [employer] Device Vascular Closure Femoral Artery Bioabsorbable Dual Method Vascade 6-7fr Collagen [id number] - [id number] Implanted:Qty: 1 on 10/16/2024 by Edinson Bridges MD PhD at [facility] Vascular Closure Device [employer] 08/08/2026 700-580I- 05U / / [id number] Description:Vascade [employer] Device Vascular Closure Vascade Mvp Xl 10-12fr Venous Strl 800-1012xl - [id number] Implanted:Qty: 1 on 10/16/2024 by Edinson Bridges MD PhD at [facility] Vascular Closure Device [employer] 07/16/2026 800-1012X L / / [id number] Description:Vascade [employer] Device Vascular Closure Vascade Mvp Xl 10-12fr Venous Strl 800-1012xl - [id number] Implanted:Qty: 1 on 10/16/2024 by Edisnon Bridges MD PhD at [facility] Vascular Closure Device [employer] 07/16/2026 800-1012X L / / [id number] Description:Vascade Procedures Procedure Name Priority Date/Time [...] 2:26 PM CDT PVC's (premature ventricular contractions) EXTENDED/PRISON HOLTER PATCH (>48 HOURS UP TO 7 DAYS) Routine 01/30/2025 2:24 PM CDT PVC's (premature ventricular contractions) ECG 12-LEAD Routine 01/30/2025 1:13 PM CDT Atrial fibrillation and flutter (HCC) SLEEP STUDY Routine 12/29/2024 3:30 PM SOCIAL WORK ADMINISTRATOR SLEEP LAB/STUDY - RESULT 12/29/2024 MR BODY OUTSIDE CONSULT Routine 12/25/2024 2:00 PM SOCIAL WORK ADMINISTRATOR Diagnosis unknown SCAN - RADIOLOGY/IMAGING 12/24/2024 HM [...] data was last reviewed 2021. Blood 01/30/2025 2:2 6 PM CDT 01/30/2025 3:32 PM CDT us Katlin Carnes NP LAB BLOOD ORDERABLES Fin al [facility] [address] [facility] [address] * (ABNORMAL) Pro B-type natriuretic [...] us Katlin Carnes NP LAB BLOOD ORDERABLES [facility] al Result [facility] [address] [facility] [address] * Magnesium (01/30/2025 2:26 PM CDT) Magnesium 2.0 1.4 - 2.5 mg/dL Comment: Reference Data. Reference values for Labor and Delivery patients: < or = 0.7 mg/dL to > or = 7.3 mg/dL Current reference data last reviewd on 08/06/2015. Blood 01/30/2025 2:26 PM CDT 01/30/2025 3:32 PM CDT us Katlin Carnes ROBOT OPERATOR LAB BLOOD ORDERABLES Fin al Result [facility] [address] [facility]. [place] [address] * Comprehensive metabolic panel (01/30/2025 2:26 PM CDT) Sodium 137 135 - 145 mmol/L Potassium, pl 4.4 3.3 - 4.9 mmol/L [facility] Chloride 99 97 - 110 mmol/L [facility] CO2 28 22 - 32 mmol/L [facility] Anion gap 10 2 - 15 mmol/L [facility] BUN 18 6 - 25 mg/dL [facility] Creatinine 0.75 0.60 - 1.10 mg/dL [facility] Glucose 105 70 - 199 mg/dL [facility] Comment: Interpretive Data Fasting glucose >/= 126 [...] [facility] AST 30 10 - 45 Units/L [facility] Blood 01/30/2025 2:26 PM CDT 01/30/2025 3:32 PM CDT us Katlin Carnes NP LAB BLOOD ORDERABLES Fin al Result [facility] [address] [facility] [address] * Extended/Shelter Holter Patch (>48 hours up to 7 days) (01/30/2025 2:24 PM CDT) Anatomical Region Laterality Modality Electrocardiogra phy 01/31/2025 12:2 3 PM CDT Narrative 02/11/2025 3:51 PM CDT [facility] Lab [address] , [address] [place] [id number] HOLTER MONITOR Patient Name: TANA FISHER RUTH : 1950 (74y 6m) Gender: F Study Date: 01/31/2025 12:23:28 PM Ht(Inch): Wt(Lb): BSA: Tech: Location: [facility] Order Provider: KATLIN CARNES BMI: Ref Provider: KATLIN CARNES PROCEDURES: Holter Report: EXTENDED/PRISON HOLTER PATCH (>48 HOURS UP TO 7 DAYS) [[id number]]. Enrollment Period: 01/31/2025 12:23 - 02/03/2025 12:21. Monitor Number: [id number]. Hookup: Patient Hookup: HOME. Patient Instructions: Patient picked up device from office and understand directions and use of the equipment. Location: [facility]. INDICATIONS: I49.3 Ventricular premature depolarization. FINDINGS: Holter Data: Min Rate: 43 BPM Min Rate Timestamp: 2025-02-03 05:52:32 Max Rate: 152 BPM Max Rate Timestamp: 2025-01-31 13:37:15 Mean Rate: 69 BPM Singlets (PACs): 53925 events Couplets (PACs): 85829 events Total (SVE): 29430 events Singlets (PVCs): 4950 events Couplets (PVCs): 51 events Runs (VT): 7 events Total (VE): 5059 events Total beats: 186347 Protocol: Recording Duration (Actual): 271014.56 Total QRS: 350935 CONCLUSIONS: 1. The PDF can be found in the [facility] Patient chart. Please go to the Cardiology [...] of NSR. Electronically Signed By: Kimberli Shepherd [facility] 02/11/2025 3:30:19 PM CDT Electronically Signed By: Kimberli Shepherd [facility] 02/11/2025 3:30:19 PM CDT Procedure Note Kimberli Shepherd MD - 02/11/2025 [facility] Cardiac Diagnostic Lab [address], [address] [place] [address] HOLTER MONITOR Patient Name: TANA FISHER RUTH : 1950 (74y 6m) Gender: F Study Date: 01/31/2025 12:23:28 PM Ht(Inch): Wt(Lb): BSA: Tech: Location: [facility] Order Provider: KATLIN CARNES BMI: Ref Provider: KATLIN CARNES PROCEDURES: Holter Report: EXTENDED/PRISON HOLTER PATCH (>48 HOURS UP TO 7 DAYS)[[id number]]. Enrollment Period: 01/31/2025 12:23 - 02/03/2025 12:21. Monitor Number: [id number]. Hookup: Patient Hookup: HOME. Patient Instructions: Patient picked up device from office and understanddirections and use of the equipment. Location: [facility]. INDICATIONS: I49.3 Ventricular premature depolarization. FINDINGS: Holter Data: Min Rate: 43 BPM Min Rate Timestamp: 2025-02-03 05:52:32 Max Rate: 152 BPM Max Rate Timestamp: 2025-01-31 13:37:15 Mean Rate: 69 BPM Singlets (PACs): 57261 events Couplets (PACs): 60922 events Total (SVE): 60580 events Singlets (PVCs): 4950 events Couplets (PVCs): 51 events Runs (VT): 7 events Total (VE): 5059 events Total beats: 723274 Protocol: Recording Duration (Actual): 654484.56 Total QRS: 614179 CONCLUSIONS: 1. The PDF can be found in the [facility] Patient chart. Please go to [...] of NSR. Electronically Signed By: Kimberli Shepherd [facility] 02/11/2025 3:30:19 PM CDT Electronically Signed By: Kimberli Shepherd [facility] 02/11/2025 3:30:19 PM CDT Result [facility] Katlin Carnes NP CV CARDIAC SERVICES PROC EDURES Final Result * ECG 12 lead (01/30/2025 1:13 PM CDT) Result [facility] Katlin Carnes NP ECG ORDERABLES Edited R esult - Final * Sleep Study (12/29/2024 3:30 PM SOCIAL WORK ADMINISTRATOR) Result [facility] Chrissy Guerra MD SLEEP CENTER ORDERABLES Fin al Result * SLEEP LAB/STUDY - RESULT (12/29/2024) Result [facility] Provider Scanning Edited Result - Final * MR Body Outside Consult (12/25/2024 2:00 PM SOCIAL WORK ADMINISTRATOR) Anatomical Region Laterality Modality Body N/A Magnetic Resonan ce 12/25/2024 2:22 PM SOCIAL WORK ADMINISTRATOR Impressions 12/25/2024 2:22 PM SOCIAL WORK ADMINISTRATOR 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 Dictated by: Antonia López MD The radiology attending physician has personally reviewed this study, and had reviewed and/or edited this written report and agrees with it. Electronically signed by: Jaimie El M.D. Narrative 12/25/2024 2:22 PM SOCIAL WORK ADMINISTRATOR EXAMINATION: RADIOLOGY CONSULTATION ON OUTSIDE IMAGING STUDY STUDY INITIALLY PERFORMED: 12/24/2024 at [facility]. TYPE OF STUDY: Multiple MR images of [...] IMAGING STUDY STUDY INITIALLY PERFORMED: 12/24/2024 at [facility]. TYPE OF STUDY: Multiple MR images of [...] images may or may not represent the [place] source data set and thus may contain [...] Modality Other Provider Scanning Final Result * HM MAMMOGRAPHY (02/13/2024) Mammography Normal Historical Provider HEALTH MAINTENANCE Final Result from Last 3 Months or Most Recently Relevant to Health Maintenance Insurance MEDICARE [employer] LIFE MEDICARE [facility] LIFE [facility] SUPPLEMENT [facility] MEDICARE [facility] [address]PPLE[place] [place] [address] MEDICARE [facility] SUPPLEMENT MADELINE BARRERA [id number] FOR LIFE [facility] Advance Directives For more information, please contact: [phone] Documents on File Type Date Recorded 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 ADVANCE DIRECTIVE 07/05/2023 12:51 PM Bhavik [employer] Vice President-Medical * Full Code (Latest Code Status on [...] 5:42 PM 08/26/2021 2:15 PM Care Teams Base Ply Hand Relationship Specialty Start Date End Date Estrella Acosta NP [address] [facility] [address] [place] [address] PCP - General Family Medicine 07/26/23 Katlin Carnes NP [address] [facility] [address] [place] [address] Nurse Practitioner Cardiology 07/26/23 Mike Mcpherson MD [address] [address] Consulting Physician Cardiology 07/26/23 Jaciel Rangel MD [address] [place] [address] Consulting Physician Urology 07/26/23
--- OUTSIDE RECORDS SUMMARY | 2025-02-27 15:15 | XMS_ITS | Clinical Summary ---
Author Organization [facility] Address [address] [place] [address] Care Team Providers Care Waste Disposal Attendant Name Role Phone Enma Hamlin MD Primary Care Provider [phone] Source Comments [facility],non-owned Affiliates and Associated Physician Practices is amultiple site organization consisting of ambulatory clinics and hospital sitesin [place], [place], [place] and [place]. This disclosure is being madepursuant to the Care Everywhere program and may not contain all information available regarding this patient. Last updated 18.[facility] [employer] Social History Tobacco Use Types Packs/Day Years [...] age to complete this topic Insurance MEDICARE [facility] Care Teams Waste Disposal Attendant Relationship Specialty Start Date End Date Enma Hamlin MD [address] [place], [place] [id number] PCP - General 04/23/19
--- OUTSIDE RECORDS SUMMARY | 2025-02-27 15:15 | XMS_ITS | Encounter Summary ---
Author Organization [facility] Address [address] [address] Care Team Providers Care Rehabilitation Liaison Name Role Phone Enma Hamlin MD Primary Care Provider [phone] Encounter Details Date Type Department Care Team (Late st Contact Info) Description 03/15/2022 Lab Requisition [facility] [address] [place] [address] Bettina Acevedo MD [address] [place], [place] [id number] Illness, unspecified Social History Tobacco Use Types [...] 1:25 PM CDT) Final Diagnosis URINE/VOIDED (OSC: [id number]; 03/11/2022): - Atypical urothelial cells 03/16/2022 8:10 AM CDT [facility] Microscopic Description and Comment Rare cell with hyperchromasia, coarse chromatin and elevated N:C ratio. 03/16/2022 8:10 AM CDT [facility] Clinical History HEMATURIA, CYSTOSCOPY NEGATIVE 03/16/2022 8:10 AM CDT [facility] Materials Received One thin prep slide received from [facility] [id number]. All material will be returned 03/16/2022 8:10 AM CDT [facility] Disclaimer The performance characteristics of all immunohistochemical and indirect immunofluorescence stains (if any) cited in this report were determined by the Histopathology Laboratory of [facility]. Some of these tests were developed by [...] attending (teaching) pathologist. 03/16/2022 8:10 AM CDT [facility] Case Report Surgical Pathology Report Case: [id number] Authorizing Provider: Bettina Acevedo MD Collected: 03/15/2022 01:25 PM Ordering Location: [facility] Pathology Lab Received: 03/15/2022 01:25 PM Pathologist: Taco Bui MD Specimen: Slide Consultation 03/16/2022 8:10 AM CDT [facility] Embedded Images 03/16/2022 8:10 AM CDT [facility] Pathology/Cytolo gy SURGICAL PATHOLOGY CONSULTATION AND REPORT ON REFERRED SLIDES PREPARED ELSEWHERE / Unknown 03/15/2022 1:25 PM CDT 03/15/2022 1:25 PM CDT us Bettina Acevedo MD LAB - PATHOLOGY/CYTOLOGY ORDERAB LES Final Result [facility] [address] [phone] documented in this encounter Visit Diagnoses Diagnosis Illness, unspecified documented in this encounter Care Teams Rehabilitation Liaison Relationship Specialty Start Date End Date Enma Hamlin MD [address] [place] [address] PCP - General 04/23/19 documented as of this encounter
--- OUTSIDE RECORDS SUMMARY | 2025-02-27 15:15 | XMS_ITS | Clinical Summary ---
Author Organization [facility] Address [facility] [place] [address] Care Team Providers Care Insulation Inspector Name Role Phone Estrella Acosta NP Primary Care Provider [phone] Katlin Carnes NP Unavailable [phone] Mike Mcpherson MD Unavailable [phone] Jaciel Rangel MD Unavailable [phone] Allergies Active Allergy Reactions Criticality Noted Date Comments Prednisone Rash Medium 05/08/2021 Itching/burning rash Thimerosal Itching,Other (See comments),Redness Low 06/27/2024 Preservative in contact brush cleaner-caused redness, itching and burning of eyes Medications [...] 06/15/2024 Assessment & Plan (10/17/2024 1:05 PM EDGE TRIMMER MECHANIC): The patient has prior history of atrial [...] 08/25/2021 Assessment & Plan (10/16/2024 7:22 PM EDGE TRIMMER MECHANIC): Continue with Eliquis 5 mg p.o. b.i.d. [...] 08/25/2021 Assessment & Plan (10/17/2024 1:04 PM EDGE TRIMMER MECHANIC): Follows with [facility]. Recent TTE was remarkable for [...] (06/29/2021): Added automatically from request for surgery [id number] Assessment & Plan (08/26/2021 12:30 PM CDT): [...] Department Care Team Description 02/08/2025 Orders Only [facility] Primary Care at [address] [address] Chrissy Guerra MD 01/30/2025 3:00 PM CDT Lab [facility] [address] [address] [address] PVC's (premature ventricular contractions); Chronic HFrEF (heart failure with reduced ejection fraction) ([facility]) 01/30/2025 2:30 PM CDT Ancillary Procedure [facility] [place] [address] [facility] [address] [place] [address] PVC's (premature ventricular contractions) 01/30/2025 1:30 PM CDT Office Visit [facility] [address] [facility] Medical Office Building [address] [place] [address] Katlin Carnes NP Atrial fibrillation and flutter (HCC) (Primary Dx); PVC's (premature ventricular contractions); Chronic HFrEF (heart failure with reduced ejection fraction) (HCC); Atypical atrial flutter (HCC) 01/30/2025 Results Follow-Up [facility] [address] [place] [address] Office [address] [place] [address] Katlin Carnes NP 01/17/[address] [facility] [address] [place] [address] Advanced Medicine 12th [place] [address] [place] [address] Osmin Rapp 01/01/2025 11:00 AM EDGE TRIMMER MECHANIC Office Visit [facility] [address] [facility] Medical Office Building 4, [address] [place] [address] Emanuel Solano MD Pancreatic cyst (Primary Dx); Pancreatic lesion; History of colon polyps 12/29/2024 Orders Only [facility] Scanning, Provider 12/25/2024 2:00 PM EDGE TRIMMER MECHANIC - 12/25/2024 11:59 PM EDGE TRIMMER MECHANIC Hospital Encounter [facility] [address] [place] [address] Diagnosis unknown Discharge Disposition: Discharge to home or self care 12/24/2024 Orders Only [facility] Scanning, Provider from Last 3 Months Immunizations Immunization Administration [...] Influenza, Unspecified 08/21/2024,2022(Deferred: Patient Refused),11/07/2022(Deferred: Patient Refused) [employer] SARS-CoV-2 Monovalent Vaccination (12+ Yrs) PURPLE 08/24/2022 [employer] Sars-Cov-2 Bivalent V accination (12+ YRS) 07/23/2023 [...] often do you attend chur ch or latter day services? Never 07/05/2023 Do [...] on file Legal Sex Female 6:09 AM EDGE TRIMMER MECHANIC Gender Identity Not on file Sexual Orientation Not on file Obstetrics History Last Filed Vital Signs Vital Sign Reading Time Taken Comments Blood Pressure 124/72 01/30/2025 1:10 PM CDT Pulse 57 01/30/2025 1:10 PM CDT Temperature 36.6 C (97.9 F) 10/17/2024 6:00 AM EDGE TRIMMER MECHANIC Respiratory Rate 17 10/17/2024 6:00 AM EDGE TRIMMER MECHANIC Oxygen Saturation 97% 01/30/2025 1:10 PM CDT [...] Osteoporosis Screening-Bone Density Scan 1950 Covid-19 Vaccine (6 - 2024-2 5 season) 2024 07/23/2023, 08/24/2022, 08/14/2021, Additional history exists Breast Cancer Screening-Mammogram 02/12/2025 02/13/2024, 08/11/2015, 08/06/2013 Depression Screening 05/22/2025 05/22/2024, 07/26/20 Well Visit 65+ 05/22/2025 05/22/2024 Fall Risk Assessment 10/17/2025 10/17/2024, 05/22/2024, 2023 DTaP/Tdap/Td Vaccine (2 - Td or Tdap) 06/29/2026 06/29/2016 Hepatitis B Screening Completed 03/13/2018 , 09/14/2017, 08/14/2017 Pneumococcal vaccine 65+ Completed 08/10/2019, 0907/2018 Zoster Vaccine Completed 05/12/2021, 02/06, 06/22/2017 Influenza Vaccine Completed 08/21/2024, , 08/03/2021, Additional history exists Medical Devices Implanted Type Area Supplemental Nurse Device Identifier Shelf Expiration Date Model / Serial / Lot [employer] [id number] Device Closure Vascade Od5 Fr Femoral Artery - [id number] Implanted:Qty: 1 on 08/25/2021 by Kevin Sexton MD at [facility] Collagen Left: Groin [employer] 05/21/2023 [id number] -[id number] / / [id number] Description:5fr vascade clos ure device [employer] [id number] System 6-12fr Mvp Venous Closure Vascade - [id number] Implanted:Qty: 1 on 08/25/2021 by Kevin Sexton MD at [facility] Collagen Left: Groin [employer] 04/29/2023 800-612C- 10U / / [id number] [employer] [id number] System 6-12fr Mvp Venous Closure Vascade - [id number] Implanted:Qty: 1 on 08/25/2021 by Kevin Sexton MD at [facility] Collagen Right: Groin [employer] 04/29/2023 800-612C- 10U / / [id number] 23A [employer] [id number] System 6-12fr Mvp Venous Closure Vascade - [id number] Implanted:Qty: 1 on 08/25/2021 by Kevin Sexton MD at [facility] Collagen Right: Groin [employer] 04/29/2023 800-612C- 10U / / [id number] 23A [employer] Device Vascular Closure Femoral Artery Bioabsorbable Dual Method Vascade 6-7fr Collagen [id number] - [id number] Implanted:Qty: 1 on 10/16/2024 by Edinson Bridges MD PhD at [facility] Vascular Closure Device [employer] 08/08/2026 [id number]- 05U / / [id number] Description:Vascade [employer] Device Vascular Closure Vascade Mvp Xl 10-12fr Venous Strl 800-1012xl - [id number] Implanted:Qty: 1 on 10/16/2024 by Edinson Bridges MD PhD at [facility] Vascular Closure Device [employer] 07/16/2026 [id number] L / / [id number] Description:Vascade [employer] Device Vascular Closure Vascade Mvp Xl 10-12fr Venous Strl 800-1012xl - [id number] Implanted:Qty: 1 on 10/16/2024 by Edinson Bridges MD PhD at [facility] Vascular Closure Device [employer] 07/16/2026 [id number] L / / [id number] Description:Vascade Procedures Procedure Name Priority Date/Time [...] 2:26 PM CDT PVC's (premature ventricular contractions) EXTENDED/ALF HOLTER PATCH (>48 HOURS UP TO 7 DAYS) Routine 01/30/2025 2:24 PM CDT PVC's (premature ventricular contractions) ECG 12-LEAD Routine 01/30/2025 1:13 PM CDT Atrial fibrillation and flutter (HCC) SLEEP STUDY Routine 12/29/2024 3:30 PM EDGE TRIMMER MECHANIC SLEEP LAB/STUDY - RESULT 12/29/2024 MR BODY OUTSIDE CONSULT Routine 12/25/2024 2:00 PM EDGE TRIMMER MECHANIC Diagnosis unknown SCAN - RADIOLOGY/IMAGING 12/24/2024 MAMMOGRAPHY [...] LAB BLOOD ORDERABLES Fin al Result [facility] [address] [facility]. [place] [address] * (ABNORMAL) Pro B-type natriuretic peptide (01/30/2025 [...] 2:26 PM CDT 01/30/2025 3:32 PM CDT [facility] LAB BLOOD ORDERABLES Fin al Result Performing Organization Address [facility] de Phone Number JOSY HARRIS [address] [facility]. [facility] [place] [address] * Magnesium (01/30/2025 2:26 PM CDT) Magnesium 2.0 1.4 - 2.5 mg/dL Comment: Reference Data. Reference values for Labor and Delivery patients: < or = 0.7 mg/dL to > or = 7.3 mg/dL Current reference data last reviewd on 08/06/2015. Blood 01/30/2025 2:26 PM CDT 01/30/2025 3:32 PM CDT [facility] LAB BLOOD ORDERABLES Fin al Result Performing Organization Address [facility] Phone Number JOSY LUNDBERG [address] [facility] [place] [address] * Comprehensive metabolic panel (01/30/2025 2:26 PM CDT) Sodium 137 135 - 145 mmol/L Potassium, pl 4.4 3.3 - 4.9 mmol/L [facility] Chloride 99 97 - 110 mmol/L [facility] CO2 28 22 - 32 mmol/L [facility] Anion gap 10 2 - 15 mmol/L [facility] BUN 18 6 - 25 mg/dL [facility] Creatinine 0.75 0.60 - 1.10 mg/dL [facility] Glucose 105 70 - 199 mg/dL [facility] Comment: Interpretive Data Fasting glucose >/= [...] CDT Katlin Carnes NP LAB BLOOD ORDERABLES [facility] al Result [facility] [address] [facility]. Department [place] [address] * Extended/Long-Term Holter Patch (>48 hours up to 7 days) (01/30/2025 2:24 PM CDT) Anatomical Region Laterality Modality Electrocardiogra phy 01/31/2025 12:2 3 PM CDT Narrative 02/11/2025 3:51 PM CDT Heart [facility] Cardiac Diagnostic Lab [address] , [address] [place] [address] HOLTER MONITOR Patient Name: TANA FISHER RUTH : 1950 (74y 6m) Gender: F Study Date: 01/31/2025 12:23:28 PM Ht(Inch): Wt(Lb): BSA: Tech: Location: [facility] Order Provider: KATLIN CARNES BMI: Ref Provider: KATLIN CARNES PROCEDURES: Holter Report: EXTENDED/ALF HOLTER PATCH (>48 HOURS UP TO 7 DAYS) [[id number]]. Enrollment Period: 01/31/2025 12:23 - 02/03/2025 12:21. Monitor Number: [id number]. Hookup: Patient Hookup: HOME. Patient Instructions: Patient picked up device from office and understand directions and use of the equipment. Location: [facility]. INDICATIONS: I49.3 Ventricular premature depolarization. FINDINGS: Holter Data: Min Rate: 43 BPM Min Rate Timestamp: 2025-02-03 05:52:32 Max Rate: 152 BPM Max Rate Timestamp: 2025-01-31 13:37:15 Mean Rate: 69 BPM Singlets (PACs): 36918 events Couplets (PACs): 15287 events Total (SVE): 25456 events Singlets (PVCs): 4950 events Couplets (PVCs): 51 events Runs (VT): 7 events Total (VE): 5059 events Total beats: 420003 Protocol: Recording Duration (Actual): 950261.56 Total QRS: 484471 CONCLUSIONS: 1. The PDF can be found in the [facility] Patient chart. Please go to the Cardiology [...] of NSR. Electronically Signed By: Kimberli Shepherd [facility] 02/11/2025 3:30:19 PM CDT Electronically Signed By: Kimberli Shepherd [facility] 02/11/2025 3:30:19 PM CDT Procedure Note Kimberli Shepherd MD - 02/11/2025 [facility] Cardiac Diagnostic Lab [address] , [address] [place] [address] HOLTER MONITOR Patient Name: TANA FISHER RUTH : 1950 (74y 6m) Gender: F Study Date: 01/31/2025 12:23:28 PM Ht(Inch): Wt(Lb): BSA: Tech: Location: [facility] Order Provider: KATLIN CARNES BMI: Ref Provider: KATLIN CARNES PROCEDURES: Holter Report: EXTENDED/ALF HOLTER PATCH (>48 HOURS UP TO 7 DAYS)[[id number]]. Enrollment Period: 01/31/2025 12:23 - 02/03/2025 12:21. Monitor Number: [id number]. Hookup: Patient Hookup: HOME. Patient Instructions: Patient picked up device from office and understanddirections and use of the equipment. Location: [facility]. INDICATIONS: I49.3 Ventricular premature depolarization. FINDINGS: Holter Data: Min Rate: 43 BPM Min Rate Timestamp: 2025-02-03 05:52:32 Max Rate: 152 BPM Max Rate Timestamp: 2025-01-31 13:37:15 Mean Rate: 69 BPM Singlets (PACs): 85933 events Couplets (PACs): 38839 events Total (SVE): 71356 events Singlets (PVCs): 4950 events Couplets (PVCs): 51 events Runs (VT): 7 events Total (VE): 5059 events Total beats: 961380 Protocol: Recording Duration (Actual): 700353.56 Total QRS: 453617 CONCLUSIONS: 1. The PDF can be found in the [facility] Patient chart. Please go to theCardiology tab, [...] one strip of NSR. Electronically Signed By: iKmberli Shepherd [facility] 02/11/2025 3:30:19 PM CDT Electronically Signed By: Kimberli Shepherd [facility] 02/11/2025 3:30:19 PM CDT us Katlin Downs Trice [facility] PROC EDURES Final Result * ECG 12 lead (01/30/2025 1:13 PM CDT) us Katlin Carnes [facility] ECG ORDERABLES Edited R esult - Final * Sleep Study (12/29/2024 3:30 PM EDGE TRIMMER MECHANIC) Chrissy Guerra MD SLEEP CENTER ORDERABLES Fin al Result * SLEEP LAB/STUDY - RESULT (12/29/2024) us Provider Scanning Edited Result - Final * MR Body Outside Consult (12/25/2024 2:00 PM EDGE TRIMMER MECHANIC) Anatomical Region Laterality Modality Body N/A Magnetic Resonan ce 12/25/2024 2:22 PM EDGE TRIMMER MECHANIC Impressions 12/25/2024 2:22 PM EDGE TRIMMER MECHANIC 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 Dictated by: Antonia López MD The radiology attending physician has personally reviewed this study, and had reviewed and/or edited this written report and agrees with it. Electronically signed by: Jaimie El M.D. Narrative 12/25/2024 2:22 PM EDGE TRIMMER MECHANIC EXAMINATION: RADIOLOGY CONSULTATION ON OUTSIDE IMAGING STUDY STUDY INITIALLY PERFORMED: 12/24/2024 at [facility]. TYPE OF STUDY: Multiple MR images of [...] IMAGING STUDY STUDY INITIALLY PERFORMED: 12/24/2024 at [facility]. TYPE OF STUDY: Multiple MR images [...] images may or may not represent the [place] source data set and thus may contain [...] Provider Scanning Final Result * MAMMOGRAPHY (02/13/2024) [facility] Signature Mammography Normal Historical Provider HEALTH MAINTENANCE Final Result from Last 3 Months or Most Recently Relevant to Health [place] [address] MEDICARE [facility] Address: [address] [address] [employer] MEDICARE [facility] LBE Security Master FOR[facility] [place] [id number] [place] [address] MEDICARE [facility] Address: [address] [address] [place] [address] FORMERLY [facility] SUPPLEMENT FOR LIFE MEDICARE FORMERLY [facility] SUPPLEMENT [employer] LIFE [facility] Advance Directives For more information, please contact: [phone] Documents on File Type Date Recorded Patient Websphere Portal Architect Expl anation ADVANCE DIRECTIVE 07/05/2023 12:51 PM Bhavik r of Sanding Machine Tender [employer] * Full Code (Latest Code Status on [...] 5:42 PM 08/26/2021 2:15 PM Care Teams Insulation Inspector Relationship Specialty Start Date End Date Estrella Acosta NP [address] [facility] [address] [place] [address] PCP - General Family Medicine 07/26/23 Katlin Carnes NP [address] [facility] [address] [place] [address] Nurse Practitioner Cardiology 07/26/23 Mike Mcpherson MD [address] [facility] [address] [address] Consulting Physician Cardiology 07/26/23 Jaciel Rangel MD [address] [facility] [address] [place] [address] Consulting Physician Urology 07/26/23
--- OUTSIDE RECORDS SUMMARY | 2025-02-27 15:15 | XMS_ITS | Encounter Summary ---
Author Organization [facility] Address [address] [place] [address] Phone Care Team Providers Care Needle Control Cheniller Name Role Phone Enma Hamlin MD Primary Care Provider [phone] No, Physician Primary Care Provider Estrella Acosta SHOVE UP Primary Care Provider [phone] Katlin Carnes SHOVE UP Unavailable [phone] Mike Mcpherson MD Unavailable [phone] Jaciel Rangel MD Unavailable [phone] Encounter Details Date Type Department Care Team (Late st Contact Info) Description 08/01/2020 Orders Only [facility] Scanning, Provider Social History Tobacco Use Types Packs/Day Years Used Date Smoking Tobacco: Never Comments Unknown Sex and Gender Information Value Date Recorded Sex Assigned at Not on file Legal Sex 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 Gender Identity Not on file Sexual Orientation [...] documented as of this encounter Care Teams Needle Control Cheniller Relationship Specialty Start Date End Date Enma Hamlin MD PCP - General Family Medicine 04/14/21 05/07/21 No, Physician PCP - General 05/08/21 07/25/23 Estrella Acosta, DANE [address] [place], [place] [id number] PCP - General Family Medicine 07/26/23 Katlin Carnes, DANE [address] [place] [address] Nurse Practitioner Cardiology 07/26/23 Mike Mcpherson MD [address] [facility] [address] [address] Consulting Physician Cardiology 07/26/23 Jaciel Rangel MD [address] [place] [address] Consulting Physician Urology 07/26/23 documented as of this encounter
--- OUTSIDE RECORDS SUMMARY | 2025-02-27 15:15 | XMS_ITS | Continuity of Care Document ---
Author Name [facility] Organization [facility] Care Team Providers Care It Quality Analyst Name Role Phone [facility] Unavailable Unavailable Medications Combined list of outpatient medications from Department of Defense and Veterans Affairs facilities.Medications provided include 1) outpatient medications from the last 15 months, and 2) patient-reported medications. Medication Details Route Status Patient Instructions Prescription Expires Prescription Number Last Dispense Date Ordering Provider Order Date Order Qty Source DILTIAZEM 24HR ER (CD) (diltiazem HCl), 120 MG, CAP ER 24H, ORAL, INGENUS PHARMAC, 90 ea. BOTTLE Cancele d [id number] : 2023 0 Pharmac y Data Transac tion Service Facilit y DILTIAZEM 24HR ER (CD) (diltiazem HCl), 120 MG, CAP ER 24H, ORAL, INGENUS PHARMAC, 90 ea. BOTTLE Cancele d [id number] : 2023 0 Pharmac y Data Transac tion Service Facilit y DILTIAZEM 24HR ER (CD) (diltiazem HCl), 120 MG, CAP ER 24H, ORAL, INGENUS PHARMAC, 90 ea. BOTTLE Cancele d [id number] : 2023 0 Pharmac y Data Transac tion Service Facilit y DILTIAZEM 24HR ER (CD) (diltiazem HCl), 120 MG, CAP ER 24H, ORAL, INGENUS PHARMAC, 90 ea. BOTTLE Cancele d [id number] : 2023 0 Pharmac y Data Transac tion Service Facilit y ELIQUIS (APIXABAN), 5 MG, TABLET, ORAL, BMS PRIMARYCARE , 60 ea. BOTTLE Active [id number] 2023 180 Pharmac y Data Transac tion Service Facilit y IMIQUIMOD (IMIQUIMOD) , 5 %, CREAM PACK, TOPICAL, PERRIGO CO., 24 ea. PACKET Cancele d [id number] : 2023 0 Pharmac y Data Transac tion Service Facilit y Immunizations Combined list of available immunizations from the Department of Defense and Veterans Affairs facilities. Immunization Series Date Given Administered By Site Reaction Lot Number CVX Code Drug Lead Net Software Developer Status Comments Source yellow fever vaccine 1 2017 Unknown, Provider [id number] [employer] ([facility]) complet ed yellow fever vaccine [facility] Influenza, seasonal, injectable, preservative free 4 2012 Unknown, Provider [id number] 140 [employer] Paste[employer] ([facility]) complet ed Influenza , seasonal, injectabl e, preservat alfonso free DoD Influenza, seasonal, injectable, preservative free 3 2011 Unknown, Provider [id number] [facility] [employer] ([facility]) complet ed Influenza , seasonal, injectabl e, preservat alfonso free [facility] Influenza, seasonal, injectable, preservative free 2 2010 Unknown, Provider [id number] 1A 140 CS [employer] ([facility]) complet ed Influenza , seasonal, injectabl e, preservat alfonso free [facility] influenza virus vaccine, whole virus 1 2002 Unknown, Provider [id number] 16 San[employer]i Pasteur ([facility]) complet ed influenza virus vaccine, whole virus [facility] Social History Combined list of available smoking, tobacco, and other social history from Department of Defense and Veterans Affairs facilities. Social History Type Response Date Comment Sour e This section is an empty social history section. DoD
== END 2025-02-27 13:33 | disposition home or self-care (01) ==
LOC: ANHIMG 13:33
PROVIDERS: PCP Nurse Practitioner Family; Visit Provider Nurse Practitioner Family
DX: Z13.820 Encounter for screening for osteoporosis (principal); Z78.0 Asymptomatic menopausal state; M85.88 Other specified disorders of bone density and structure, other site; M85.852 Other specified disorders of bone density and structure, left thigh; M85.851 Other specified disorders of bone density and structure, right thigh
CPT/HCPCS: 77080